=== PATIENT | male | born 1980 | race Caucasian/White ===

== ENCOUNTER 2020-08-10 15:36 | Inpatient (IN) | payer SELFPAY ==
[2020-08-10] VITALS (7 sets, daily range): BP systolic 112–133; BP diastolic 72–100; PULSE 62–90; RESP 16–18; TEMP 36.3–36.8; O2SAT 95–98; BMI 27.8
--- NOTE | 2020-08-10 15:45 | CTR_ITS ---
PROCEDURE INFORMATION: Exam: CT Right Upper Extremity With Contrast, Hand Exam date and time: 08/10/2020 5:23 PM Age: 39 years old Clinical indication: Condition or disease; Abscess; Hand; Right; Additional info: Abscess/puncture wound TECHNIQUE: Imaging protocol: CT of the Right upper extremity with intravenous contrast was performed. Exam focused on the hand. Radiation optimization: All CT scans at this facility use at least one of these dose optimization techniques: automated exposure control; mA and/or kV adjustment per patient size (includes targeted exams where dose is matched to clinical indication); or iterative reconstruction. Contrast material: OMNI 300; Contrast volume: 95 ml; Contrast route: INTRAVENOUS (IV); COMPARISON: No relevant prior studies available. RADIATION DOSE METRICS: Total DLP (mGy-cm): 194.57 FINDINGS: Bones/joints: Normal. No acute fracture or dislocation. Soft tissues: Subcutaneous fat inflammation along the volar aspect of the index finger proximal phalanx with more diffuse inflammation proximal to this down to the level of the proximal 2nd metatarsus consistent with cellulitis. No obvious abscess, soft tissue emphysema or osteomyelitis. CT/CT [place] con [id number] IMPRESSION: 1. Subcutaneous fat inflammation along the volar aspect of the index finger proximal phalanx with more diffuse inflammation proximal to this down to the level of the proximal 2nd metatarsus consistent with cellulitis. 2. No obvious abscess, soft tissue emphysema or osteomyelitis. Radiation Dose CTDIVOL = (mGy): DLP = 194.57 (mGy-cm)
--- NOTE | 2020-08-10 16:38 | W.ED.EXTPRO ---
Documented by User: Jose Garcia DO 08/11/20 05:54 HPI - Extremity Problem General: Chief complaint: Extremity Injury, Upper Stated complaint: right hand swelling Time Seen by Provider: 08/10/20 15:41 History of Present Illness: HPI Narrative: 39-year-old male presents emergency room with complaint of swelling in his right hand between second and third distal metatarsals. He evidently had dropped or caught a picture frame as it was dropping in the palm of his hand distally near the interwebspace was punctured by a nail. Overnight it is swollen significantly it is painful to touch he is severe pain with range of motion. He denies any fever sweats or chills. MD Complaint: extremity pain and extremity swelling Onset (ago): day(s) Pain Consistency: constant Location: right Quality: aching Radiation: proximal Relieving factors: immobilization and rest Exacerbating factors: range of motion and palpation Associated symptoms: Deny chest pain, fever(s) or rash Review of Systems Const: Denies: fever(s), chills, body aches, change in appetite, fatigue or malaise ENMT: Denies: throat pain, ear or mastoid pain, nasal discharge or nasal congestion Card: Denies: chest pain, edema, dyspnea on exertion or orthopnea Resp: Denies: dyspnea, productive cough or non-productive cough GI: Denies: abdominal pain, nausea, vomiting, hematemesis, coffee ground emesis, diarrhea, constipation, bloating, hematochezia or melena : Denies: flank pain, dysuria, urinary frequency or urinary urgency Skin/Breast: Denies: rash or pruritus PFSH ED PFSH: Medical History Abscess GERD (gastroesophageal reflux disease) Hepatitis C HIV negative test was done 11/19/2009 Heroin addiction IV drug abuse Methadone dependence Polysubstance (excluding opioids) dependence Surgical History History of incision and drainage multiple History of tonsillectomy Family History Mother CAD (coronary artery disease) Social History Smoking and tobacco status: current every day smoker Alcohol intake: never Substance/Drug Use: former Physical Exam Const: COMMON NORMALS: no acute distress GENERAL APPEARANCE: cooperative and comfortable ORIENTATION/CONSCIOUSNESS: Yes awake, Yes oriented to person, Yes oriented to place and Yes oriented to time HENMT: COMMON NORMALS: normocephalic, atraumatic and hearing grossly normal bilaterally HEAD & SCALP: normocephalic and atraumatic Neck/C-Spine: COMMON NORMALS: no JVD Resp: COMMON NORMALS: normal respiratory effort, No retractions, No use of accessory muscles and clear to auscultation bilaterally AUSCULTATION: clear to auscultation bilaterally Cardio: COMMON NORMALS: no JVD, regular rate, regular rhythm and No murmurs present (Cardio) RATE: regular rate RHYTHM: regular rhythm GI: COMMON NORMALS: Soft to palpation and No hepatosplenomegaly present AUSCULTATION: Yes normoactive bowel sounds PALPATION: Yes Soft to palpation, No Tenderness to palpation present (GI), No Guarding due to palpation present (GI) and Yes No hepatosplenomegaly present Extremity: NARRATIVE EXTREMITY EXAM: Given swelling of the right hand with a focal abscess between the second and third metatarsals with pointing at the the palmar surface. There is no active drainage edema and induration extending to the proximal third of the forearm no epitrochlear lymphadenopathy noted Neuro: SENSORIUM/ORIENTATION: Yes oriented to person, Yes oriented to place and Yes oriented to time Skin: COMMON NORMALS: no rashes or lesions noted GENERAL SKIN EXAM: no rashes or lesions noted Course Vital Signs: Vital signs: Vital Signs Temperature 98.3 F 08/11/20 04:00 Pulse Rate 72 08/11/20 04:00 Respiratory Rate 18 08/11/20 04:00 Blood Pressure 109/68 08/11/20 04:00 Pulse Oximetry 92 08/11/20 04:00 MDM - Extremity (Nontraumatic) MDM Narrative: Medical decision making narrative: Care turned over to Dr. Queen at change of shift see his notes for final diagnosis and disposition Lab Data: Labs: Lab Results 08/10/20 08/10/20 08/10/20 Range/Units 17:00 17:00 17:00 WBC 11.1 H (4.0-10.0) 10^3/ uL RBC 3.72 L (4.1-5.3) 10^6/u L Hgb 11.1 L (11.7-16.6) g/dL Hct 33.9 L (42.0-52.0) % MCV 91.1 (80-94) fL MCH 29.8 (28.0-34.0) pg MCHC 32.7 (30.0-36.0) g/dL RDW 13.2 (12.1-15.1) % Plt Count 299 (130-400) 10^3/c mm MPV 10.5 H (7.4-10.4) fL Neut % (Auto) 71.8 % Lymph % (Auto) 16.7 % [place] % (Auto) 8.4 % Eos % (Auto) 2.3 % Baso % (Auto) 0.4 % Neut # (Auto) 7.95 H (1.8-7.7) 10^3/u L Lymph # (Auto) 1.9 (0.8-4.8) 10^3/u L [place] # (Auto) 0.9 (0.2-0.9) 10^3/u L Eos # (Auto) 0.3 (0.0-0.8) 10^3/u L Baso # (Auto) 0.0 (0.0-0.1) 10^3/u L Nucleated RBC % (a uto) 0 % Nucleated RBCs # 0.0 /100WBC ESR 46 H (0-10) mm/hr Sodium 138 (136-145) mmol/L Potassium 2.9 L (3.5-5.1) mmol/L Chloride 99 (98-107) mmol/L Carbon Dioxide 32 H (22-29) mmol/L Anion Gap 9.9 (5-19) BUN 9 (6-20) mg/dL Creatinine 1.0 (0.7-1.2) mg/dL GFR Calculation 83.2 L (90-130) mL/min Glucose 109 (65-115) mg/dL Calculated Osmolal ity 285 (285-295) mOsm/k g Calcium 8.7 (8.5-10.5) mg/dL Total Bilirubin 0.4 (0.15-1.2) mg/dL AST 25 (0-40) U/L ALT 23 (0-41) U/L Alkaline Phosphata se 90 (40-130) IU/L C-Reactive Protein (0.0-4.9) mg/L Total Protein 6.7 (6.6-8.7) g/dL Albumin 3.6 (3.5-5.2) g/dL Globulin 3.1 (1.3-4.6) g/dL 08/10/20 Range/Units 17:00 WBC (4.0-10.0) 10^3/ uL RBC (4.1-5.3) 10^6/u L Hgb (11.7-16.6) g/dL Hct (42.0-52.0) % MCV (80-94) fL MCH (28.0-34.0) pg MCHC (30.0-36.0) g/dL RDW (12.1-15.1) % Plt Count (130-400) 10^3/c mm MPV (7.4-10.4) fL Neut % (Auto) % Lymph % (Auto) % [place] % (Auto) % Eos % (Auto) % Baso % (Auto) % Neut # (Auto) (1.8-7.7) 10^3/u L Lymph # (Auto) (0.8-4.8) 10^3/u L [place] # (Auto) (0.2-0.9) 10^3/u L Eos # (Auto) (0.0-0.8) 10^3/u L Baso # (Auto) (0.0-0.1) 10^3/u L Nucleated RBC % (a uto) % Nucleated RBCs # /100WBC ESR (0-10) mm/hr Sodium (136-145) mmol/L Potassium (3.5-5.1) mmol/L Chloride (98-107) mmol/L Carbon Dioxide (22-29) mmol/L Anion Gap (5-19) BUN (6-20) mg/dL Creatinine (0.7-1.2) mg/dL GFR Calculation (90-130) mL/min Glucose (65-115) mg/dL Calculated Osmolal ity (285-295) mOsm/k g Calcium (8.5-10.5) mg/dL Total Bilirubin (0.15-1.2) mg/dL AST (0-40) U/L ALT (0-41) U/L Alkaline Phosphata se (40-130) IU/L C-Reactive Protein 52.0 H (0.0-4.9) mg/L Total Protein (6.6-8.7) g/dL Albumin (3.5-5.2) g/dL Globulin (1.3-4.6) g/dL Discharge Plan Discharge Patient Disposition: Admitted As Inpatient Admit Provider: Michelet Gamino Clinical Impression: Cellulitis Qualifiers: Site of cellulitis: extremity Site of cellulitis of extremity: upper extremity Laterality: right Qualified Code(s): L03.113 - Cellulitis of right upper limb Condition: Stable Coding Level of Care Code ED Intensivist for [facility] Fwd Exam Detailed Documented by User: Ang Queen MD 08/10/20 19:37 HPI - Extremity Problem General: Chief complaint: Extremity Injury, Upper Stated complaint: right hand swelling Time Seen by Provider: 08/10/20 15:41 PFS ED PFSH: Medical History Abscess GERD (gastroesophageal reflux disease) Hepatitis C HIV negative test was done 11/19/2009 Heroin addiction IV drug abuse Methadone dependence Polysubstance (excluding opioids) dependence Surgical History History of incision and drainage multiple History of tonsillectomy Family History Mother CAD (coronary artery disease) Social History Smoking and tobacco status: current every day smoker Alcohol intake: never Substance/Drug Use: former Course Vital Signs: Vital signs: Vital Signs Temperature 98.3 F 08/11/20 04:00 Pulse Rate 72 08/11/20 04:00 Respiratory Rate 18 08/11/20 04:00 Blood Pressure 109/68 08/11/20 04:00 Pulse Oximetry 92 08/11/20 04:00 MDM - Extremity (Nontraumatic) MDM Narrative: Medical decision making narrative: Patient presents with cellulitis in his hand. Did speak to hand surgeon Dr. Collins at [facility] [address] she felt that did not require immediate surgery. I spoke to orthopedist Dr. Gamez here and feels it is more of a cellulitis at this time and has no signs of flexor infection. Patient started on IV antibiotics I spoke to the hospital who is admitting Lab Data: Labs: Lab Results 08/10/20 08/10/20 08/10/20 Range/Units 17:00 17:00 17:00 WBC 11.1 H (4.0-10.0) 10^3/ uL RBC 3.72 L (4.1-5.3) 10^6/u L Hgb 11.1 L (11.7-16.6) g/dL Hct 33.9 L (42.0-52.0) % MCV 91.1 (80-94) fL MCH 29.8 (28.0-34.0) pg MCHC 32.7 (30.0-36.0) g/dL RDW 13.2 (12.1-15.1) % Plt Count 299 (130-400) 10^3/c mm MPV 10.5 H (7.4-10.4) fL Neut % (Auto) 71.8 % Lymph % (Auto) 16.7 % [place] % (Auto) 8.4 % Eos % (Auto) 2.3 % Baso % (Auto) 0.4 % Neut # (Auto) 7.95 H (1.8-7.7) 10^3/u L Lymph # (Auto) 1.9 (0.8-4.8) 10^3/u L [place] # (Auto) 0.9 (0.2-0.9) 10^3/u L Eos # (Auto) 0.3 (0.0-0.8) 10^3/u L Baso # (Auto) 0.0 (0.0-0.1) 10^3/u L Nucleated RBC % (a uto) 0 % Nucleated RBCs # 0.0 /100WBC ESR 46 H (0-10) mm/hr Sodium 138 (136-145) mmol/L Potassium 2.9 L (3.5-5.1) mmol/L Chloride 99 (98-107) mmol/L Carbon Dioxide 32 H (22-29) mmol/L Anion Gap 9.9 (5-19) BUN 9 (6-20) mg/dL Creatinine 1.0 (0.7-1.2) mg/dL GFR Calculation 83.2 L (90-130) mL/min Glucose 109 (65-115) mg/dL Calculated Osmolal ity 285 (285-295) mOsm/k g Calcium 8.7 (8.5-10.5) mg/dL Total Bilirubin 0.4 (0.15-1.2) mg/dL AST 25 (0-40) U/L ALT 23 (0-41) U/L Alkaline Phosphata se 90 (40-130) IU/L C-Reactive Protein (0.0-4.9) mg/L Total Protein 6.7 (6.6-8.7) g/dL Albumin 3.6 (3.5-5.2) g/dL Globulin 3.1 (1.3-4.6) g/dL 08/10/20 Range/Units 17:00 WBC (4.0-10.0) 10^3/ uL RBC (4.1-5.3) 10^6/u L Hgb (11.7-16.6) g/dL Hct (42.0-52.0) % MCV (80-94) fL MCH (28.0-34.0) pg MCHC (30.0-36.0) g/dL RDW (12.1-15.1) % Plt Count (130-400) 10^3/c mm MPV (7.4-10.4) fL Neut % (Auto) % Lymph % (Auto) % [place] % (Auto) % Eos % (Auto) % Baso % (Auto) % Neut # (Auto) (1.8-7.7) 10^3/u L Lymph # (Auto) (0.8-4.8) 10^3/u L [place] # (Auto) (0.2-0.9) 10^3/u L Eos # (Auto) (0.0-0.8) 10^3/u L Baso # (Auto) (0.0-0.1) 10^3/u L Nucleated RBC % (a uto) % Nucleated RBCs # /100WBC ESR (0-10) mm/hr Sodium (136-145) mmol/L Potassium (3.5-5.1) mmol/L Chloride (98-107) mmol/L Carbon Dioxide (22-29) mmol/L Anion Gap (5-19) BUN (6-20) mg/dL Creatinine (0.7-1.2) mg/dL GFR Calculation (90-130) mL/min Glucose (65-115) mg/dL Calculated Osmolal ity (285-295) mOsm/k g Calcium (8.5-10.5) mg/dL Total Bilirubin (0.15-1.2) mg/dL AST (0-40) U/L ALT (0-41) U/L Alkaline Phosphata se (40-130) IU/L C-Reactive Protein 52.0 H (0.0-4.9) mg/L Total Protein (6.6-8.7) g/dL Albumin (3.5-5.2) g/dL Globulin (1.3-4.6) g/dL Imaging Data^: Other CT: Attestation: I personally reviewed and interpreted this imaging study as follows: Radiologist's impression: [address] [address] [address] Scan Report Signed Patient: Zenon Brewer Unit #: [id number] : 1980 Age/Sex: 39 / M ADM Date: 08/10/20 Loc: ER Room/Bed: Attending Dr: Ordering Provider/Ordering MD: Jose Garcia DO Date of Service: 08/10/20 Procedure(s): CT hand RT w con [id number] Accession Number(s): [id number] Report Number: [id number] PROCEDURE INFORMATION: Exam: CT Right Upper Extremity With Contrast, Hand Exam date and time: 08/10/2020 5:23 PM Age: 39 years old Clinical indication: Condition or disease; Abscess; Hand; Right; Additional info: Abscess/puncture wound TECHNIQUE: Imaging protocol: CT of the Right upper extremity with intravenous contrast was performed. Exam focused on the hand. Radiation optimization: All CT scans at this facility use at least one of these dose optimization techniques: automated exposure control; mA and/or kV adjustment per patient size (includes targeted exams where dose is matched to clinical indication); or iterative reconstruction. Contrast material: OMNI 300; Contrast volume: 95 ml; Contrast route: INTRAVENOUS (IV); COMPARISON: No relevant prior studies available. RADIATION DOSE METRICS: Total DLP (mGy-cm): 194.57 FINDINGS: Bones/joints: Normal. No acute fracture or dislocation. Soft tissues: Subcutaneous fat inflammation along the volar aspect of the index finger proximal phalanx with more diffuse inflammation proximal to this down to the level of the proximal 2nd metatarsus consistent with cellulitis. No obvious abscess, soft tissue emphysema or osteomyelitis. CT/CT hand RT w con [id number] IMPRESSION: 1. Subcutaneous fat inflammation along the volar aspect of the index finger proximal phalanx with more diffuse inflammation proximal to this down to the level of the proximal 2nd metatarsus consistent with cellulitis. 2. No obvious abscess, soft tissue emphysema or osteomyelitis. Radiation Dose CTDIVOL = (mGy): DLP = 194.57 (mGy-cm) Discharge Plan Discharge Patient Disposition: Admitted As Inpatient Admit Provider: Michelet Gamino Clinical Impression: Cellulitis Qualifiers: Site of cellulitis: extremity Site of cellulitis of extremity: upper extremity Laterality: right Qualified Code(s): L03.113 - Cellulitis of right upper limb Condition: Stable Coding Level of Care Code ED Intensivist for [facility] Fwd Exam Detailed
--- NOTE | 2020-08-10 16:49 | PC.NURSE ---
pt has had multiple IV attempts from multiple nurses and staff. Attempts unsuccessful thus far. ED physician notified.
[2020-08-10] MEDS: vancomycin 1,000 MG in sodium chloride 0.9% 250 ML 250 MG IV (17:09)
[2020-08-10] MEDS: ondansetron 2 mg/ML SDV 2 mL 4 MG IVP (17:10)
[2020-08-10] MEDS: morphine 4 mg/mL SDV 1 mL IVP (17:10)
[2020-08-10] MEDS: iohexol 300 mg/mL 100 mL Btl IV (17:28)
[2020-08-10 17:30] LABS: Basophils % 0.4 %; Eosinophils # 0.3 10^3/uL (0.0-0.8); Eosinophils % 2.3 %; Hematocrit 33.9 % (42.0-52.0); Hemoglobin 11.1 g/dL (11.7-16.6); Lymphocytes # 1.9 10^3/uL (0.8-4.8); Lymphocytes % 16.7 %; Mean Corpuscular HGB Conc 32.7 g/dL (30.0-36.0); Mean Corpuscular Hemoglobin 29.8 pg (28.0-34.0); Mean Corpuscular Volume 91.1 fL (80-94); Mean Platelet Volume 10.5 fL (7.4-10.4); Monocytes # 0.9 10^3/uL (0.2-0.9); Monocytes % 8.4 %; Neutrophils # 7.95 10^3/uL (1.8-7.7); Neutrophils % 71.8 %; Nucleated Red Blood Cells % 0 %; Platelet Count 299 10^3/cmm (130-400); Red Blood Count 3.72 10^6/uL (4.1-5.3); Red Cell Distribution Width 13.2 % (12.1-15.1); White Blood Count 11.1 10^3/uL (4.0-10.0)
[2020-08-10 17:41] LABS: Alanine Aminotransferase 23 U/L (0-41); Albumin Level 3.6 g/dL (3.5-5.2); Alkaline Phosphatase 90 IU/L (40-130); Anion Gap 9.9 (5-19); Aspartate Amino Transferase 25 U/L (0-40); Blood Urea Nitrogen 9 mg/dL (6-20); Calcium 8.7 mg/dL (8.5-10.5); Carbon Dioxide 32 mmol/L (22-29); Chloride 99 mmol/L (98-107); Globulin 3.1 g/dL (1.3-4.6); Glomerular Filtration Rate 83.2 mL/min (90-130); Glucose 109 mg/dL (65-115); Osmolality Calculated 285 mOsm/kg (285-295); Sodium 138 mmol/L (136-145); Total Bilirubin 0.4 mg/dL (0.15-1.2); Total Protein 6.7 g/dL (6.6-8.7)
[2020-08-10 17:50] LABS: Potassium 2.9 mmol/L (3.5-5.1)
[2020-08-10] MEDS: tetanus-dipt-pertussis 0.5 mL SDV IM (18:16)
[2020-08-10] MEDS: lidocaine 1% 5 ML in potassium chloride premix 100 ML 25 ML IV (18:16)
[2020-08-10 19:25] LABS: Erythrocyte Sedimentation Rate 46 mm/hr (0-10)
--- NOTE | 2020-08-10 19:38 | P.HP_ITS ---
Providers/Chief Complaint Admitting Physician: Michelet Gamino MD Chief Complaint: right hand swelling History of Present Illness Zenon Brewer is a 39 year old male who carries history of IV drug abuse, heroin addiction currently on methadone, presented today with chief complaint of right arm swelling. Patient is stating that around [place] he had a relapse when he started using IV methamphetamine, he only used it for 3 days. He is stating that his girlfriend left him around [place] and that triggered that event. He smokes on and off, does not drink alcohol. About 3 to 4 days ago he was cleaning his home when he punctured his right palm with a nail when a wooden frame fell on him, he started noticing swelling yesterday and it got worse today, his right arm became tender and more swollen. He did not notice fever, nausea, vomiting, rigors/chills shortness of breath or chest pain. Diagnostics in the ER revealed normal hemodynamics he does not meet sepsis criteria however leukocytosis noted, CT had did not reveal any necrotizing fasciitis or gas gangrene, Dr. Gamez will see him in the morning, his case was discussed with hand surgeon at [place] who did not recommend any intervention at this point. Vancomycin and Zosyn started Review of Systems Const: Reports: fatigue; Denies: fever(s), chills or body aches Eyes: Denies: change in vision ENMT: Denies: throat pain Card: Denies: chest pain Resp: Denies: dyspnea GI: Denies: abdominal pain : Denies: flank pain Musc: Denies: neck pain Skin/Breast: Denies: rash Neuro: Denies: headache(s) Psych: Reports: depression Endo: Denies: polyuria Ethan/Lymph: Denies: easy bruising All/Imm: Denies: urticaria Medications/Allergies Home Medications Medication Instructions Recorded Confirmed Last Taken Type methadone 40 mg PO DAILY 08/10/20 08/10/20 Unknown History Allergies Allergy/AdvReac Type Severity Reaction Status Date / Time Unable to Assess Allergy Unverified 08/10/20 17:10 PFSH Acute PFSH: Medical History Abscess GERD (gastroesophageal reflux disease) Hepatitis C HIV negative test was done 11/19/2009 Heroin addiction IV drug abuse Methadone dependence Polysubstance (excluding opioids) dependence Surgical History History of incision and drainage multiple History of tonsillectomy Family History Mother CAD (coronary artery disease) Social History Smoking and tobacco status: current every day smoker Alcohol intake: never Substance/Drug Use: former Vitals/I&O/Wt Last Vital Signs Temp 98.2 F 08/10/20 15:39 Pulse 74 08/10/20 19:03 Resp 18 08/10/20 15:39 BP 113/73 08/10/20 19:03 Pulse Ox 97 08/10/20 19:03 Weight last 48 hrs Weight 92.986 kg Physical Exam Narrative: EXAM NARRATIVE: Young male Unkept appearance S1, S2 no tachycardia or heart failure, no murmur appreciated Abdomen soft nontender bowel sound present No acute respiratory distress EOMI, PERRLA Neurological deficit GCS 15, Right arm swelling after his elbow with mild hyperemia around dorsum of his hand, puncture wound noted on palmar side with no active drainage, no signs of lymphangitis, arm is tender, limited range of motion No cyanosis gangrene of skin Lower extremity no edema gangrene or ulcer Poor hygiene, legs are soiled with feces No typical signs of infective endocarditis Data : 08/10/20 17:00 08/10/20 17:00 Micro: Microbiology 08/10/20 17:36 Blood Culture - Preliminary Blood SPECIMEN COLLECTED 08/10/20 17:00 Blood Culture - Preliminary Blood SPECIMEN COLLECTED A&P Assessment and plan (1) Cellulitis: Right arm cellulitis No signs of sepsis or lymphangitis, his wound is clean, no active drainage CT head did not reveal gas gangrene or necrotizing fasciitis We will start patient on vancomycin and Zosyn, if he shows signs of worsening would add antipseudomonal double coverage Dilaudid for breakthrough pain, continue methadone Patient has received tetanus shot in the ER Monitor for progressive cellulitis Obtain blood cultures Previous blood work revealed negative HIV test Dr. Gamez is consulted Status: Acute Qualifiers: Laterality: right Site of cellulitis: extremity Site of cellulitis of extremity: upper extremity Qualified Code(s): L03.113 - Cellulitis of right upper limb Additional A&P Information Heroin addiction: Currently on methadone IV drug abuse: Patient injected methyl amphetamine around [place] would obtain drug screen Cardiac diet Full code DVT prophylaxis Lovenox Attestations Medical Necessity Statement*: Anticipating stay in the hospital cross more than 2 midnights currently needing IV antibiotics for right arm cellulitis, his edema is extending from tip of the fingers up to elbow, he is at risk of progressive cellulitis considering history of IV drug abuse and heroin addiction Time Spent in Patient Care: (>than 50% of time spent in counselling and/or direct pt care on unit) . 50mins Coding Level of Care Code Acute [employer] Product Manager for Ern[facility] R[facility]ins Diagnoses Cellulitis L03.113 Laterality: right Site of cellulitis: extremity Site of cellulitis of extremity: upper extremity
--- NOTE | 2020-08-10 21:02 | PC.PHAR ---
Vancomycin is dosed at 1000mg IVPB every 8 hours to produce a predicted trough level of 14.14 (population based pharmacokinetic analysis). A trough level has been ordered to be obtained before the fourth dose to confirm and adjust if needed. The Zosyn is dosed at 3.375gm IVPB every 8 hours on basis of creatinine clearance of 117.48.
[2020-08-10] MEDS: enoxaparin 40 mg/0.4 mL Syringe SUBCUT (21:25)
[2020-08-10] MEDS: piperacillin-tazobactam 3.375 GM in sodium chloride 0.9% (plus) 50 ML IV (23:17)
[2020-08-11] MEDS: vancomycin 1,000 MG in sodium chloride 0.9% 250 ML 250 MG IV ×3 (01:07→17:48)
[2020-08-11 04:00] VITALS: BP 109/68; PULSE 72; RESP 18; TEMP 36.8; O2SAT 92
[2020-08-11 04:56] LABS: Basophils % 0.3 %; Eosinophils # 0.3 10^3/uL (0.0-0.8); Eosinophils % 2.7 %; Hematocrit 33.1 % (42.0-52.0); Hemoglobin 10.8 g/dL (11.7-16.6); Lymphocytes # 1.8 10^3/uL (0.8-4.8); Lymphocytes % 18.3 %; Mean Corpuscular HGB Conc 32.6 g/dL (30.0-36.0); Mean Corpuscular Hemoglobin 30.3 pg (28.0-34.0); Mean Corpuscular Volume 92.7 fL (80-94); Mean Platelet Volume 10.6 fL (7.4-10.4); Monocytes # 0.9 10^3/uL (0.2-0.9); Monocytes % 9.2 %; Neutrophils # 6.65 10^3/uL (1.8-7.7); Neutrophils % 68.9 %; Nucleated Red Blood Cells % 0 %; Platelet Count 263 10^3/cmm (130-400); Red Blood Count 3.57 10^6/uL (4.1-5.3); Red Cell Distribution Width 13.4 % (12.1-15.1); White Blood Count 9.7 10^3/uL (4.0-10.0)
[2020-08-11 05:21] LABS: Anion Gap 8.1 (5-19); Blood Urea Nitrogen 6 mg/dL (6-20); Calcium 8.3 mg/dL (8.5-10.5); Carbon Dioxide 31 mmol/L (22-29); Chloride 100 mmol/L (98-107); Glomerular Filtration Rate 107.6 mL/min (90-130); Glucose 112 mg/dL (65-115); Osmolality Calculated 280 mOsm/kg (285-295); Potassium 3.1 mmol/L (3.5-5.1); Sodium 136 mmol/L (136-145)
[2020-08-11] MEDS: piperacillin-tazobactam 3.375 GM in sodium chloride 0.9% (plus) 50 ML IV ×3 (06:43→23:10)
[2020-08-11 08:00] VITALS: BP 121/88; PULSE 82; TEMP 36.7; O2SAT 96
[2020-08-11] MEDS: sennosides-docusate Tablet 1 TAB PO (08:03)
[2020-08-11] MEDS: methadone 10 mg Tablet 40 MG PO (09:36)
[2020-08-11 09:44] LABS: Magnesium 1.7 mg/dL (1.7-2.3)
[2020-08-11] MEDS: lidocaine 1% 5 ML in potassium chloride premix 100 ML 25 ML IV (10:08)
[2020-08-11 11:57] VITALS: BP 115/68; PULSE 70; RESP 14; TEMP 36.3; O2SAT 95
[2020-08-11] MEDS: acetaminophen 325 mg Tablet PO (12:21)
[2020-08-11] MEDS: methadone 10 mg Tablet 95 MG PO (12:28)
--- NOTE | 2020-08-11 14:48 | PM.CONSULT ---
Providers/Reason For Consult Consulting Physican/Specialty*: David Gamez MD Reason for Consult*: Cellulitis right hand Attending Physician: Leroy Magana History of Present Illness History of Present Illness Zenon Brewer is a 39 year old male with a history of IV drug use, heroin addiction and current on methadone who presented last night with right arm swelling. He states 5 days ago he had a nail from a picture frame puncture his plantar hand beneath the long finger. He states that 2 days ago he began having increasing redness and swelling in his hand. He finally presented to the emergency room last night where he was diagnosed with cellulitis. Work-up including a CT scan which, excepting its limited diagnostic capability and soft tissue infections, showed no evidence of deep abscess. The patient has been admitted to the medicine service for antibiotics. He describes much less redness and swelling in his hand since admission Meds/Allergies Home Medications and Allergies Home Medications Medication Instructions Recorded Confirmed Last Taken Type methadone 40 mg PO DAILY 08/10/20 08/10/20 Unknown History Allergies Allergy/AdvReac Type Severity Reaction Status Date / Time No Known Allergies Allergy Verified 08/10/20 23:36 Current Medications Current Medications Generic Name Dose Route Start Last Admin Trade Name Freq PRN Reason Stop Dose Admin Acetaminophen 325 - 650 mg 08/10/20 20:28 08/11/20 12:21 Acetaminophen 325 Mg Tablet PO 650 mg Q4H PRN Administration MILD PAIN OR INCREASE TEMP Enoxaparin Sodium 40 mg 08/10/20 20:28 08/10/20 21:25 Enoxaparin 40 Mg/0.4 Ml Syringe SUBCUT 40 mg Q24H KARLO Administration Vancomycin HCl 1,000 mg/ 250 mls @ 250 mls/hr 08/11/20 01:00 08/11/20 08:50 Sodium Chloride IV 250 mls/hr Q8H KARLO Administration Protocol As Directed Piperacillin Sod/Tazobactam 50 mls @ 12.5 mls/hr 08/10/20 21:00 08/11/20 14:22 Sod 3.375 gm/ Sodium Chloride IV 12.5 mls/hr Q8H KARLO Administration Protocol As Directed Senna/Docusate Sodium 1 tab 08/11/20 09:00 08/11/20 08:03 Sennosides-Docusate Tablet PO 1 tab DAILY KARLO Administration PFSH Acute PFSH: Medical History Abscess GERD (gastroesophageal reflux disease) Hepatitis C HIV negative test was done 11/19/2009 Heroin addiction IV drug abuse Methadone dependence Polysubstance (excluding opioids) dependence Surgical History History of incision and drainage multiple History of tonsillectomy Family History Mother CAD (coronary artery disease) Social History Smoking and tobacco status: current every day smoker Alcohol intake: never Substance/Drug Use: former Vitals/I&O/Wt Last Vital Signs Temp 97.4 F L 08/11/20 11:57 Pulse 70 08/11/20 11:57 Resp 14 08/11/20 11:57 BP 115/68 08/11/20 11:57 Pulse Ox 95 08/11/20 11:57 08/10/20 08/11/20 08/11/20 22:59 06:59 14:59 Intake Total 250 / 250 405 / 655 290 / 290 Output Total 0 / 0 475 / 475 450 / 450 Balance 250 / 250 -70 / 180 -160 / -160 Weight last 48 hrs Weight 205 lb Physical Exam Narrative: EXAM NARRATIVE: On examination of the patient's right hand there is diffuse swelling in the right hand dorsally and all palmarly. There is a open wound over the plantar aspect at the level of the A1 hammad volarly of the long finger. There seems to be increasing redness and swelling in that area. He will flex his digits through 180 degree arc of motion and he can extend to them to approximately 30 degrees short of full extension. He has no fusiform swelling of the long finger digit and no particular tenderness over the middle distal or distal portion of the proximal phalanx volarly. There is some tenderness extending into his palm. He has subjective diminished sensation along the volar aspect of the long finger. He has good capillary refill in the tip of the digit. Data Micro: Micro: Microbiology 08/10/20 17:36 Blood Culture - Pr eliminary Blood SPECIMEN [facility] GUILLAUME 08/10/20 17:00 Blood Culture - Pr eliminary Blood SPECIMEN [facility] GUILLAUME A&P Assessment and plan (1) Cellulitis: The patient is clinically responding to IV antibiotics. I am concerned about the swelling in the area of a puncture wound. If he does not show good improvement we could consider surgical duct debridement. I will see how he does today and tomorrow. Would like to get baseline radiographs. I will await the CT scan report although certainly its benefit in diagnosing soft tissue infections is quite limited. Status: Acute Qualifiers: Laterality: right Site of cellulitis: extremity Site of cellulitis of extremity: upper extremity Qualified Code(s): L03.113 - Cellulitis of right upper limb Consult Attestations Medical Necessity Statement: Patient requires IV antibiotics and close follow-up with possible surgery in the future. Coding Level of Care Code Acute Asset Protection Detective for [facility] Diagnoses Cellulitis L03.113 Laterality: right Site of cellulitis: extremity Site of cellulitis of extremity: upper extremity
--- NOTE | 2020-08-11 14:54 | XRR_ITS ---
PROCEDURE INFORMATION: Exam: XR Right Hand Exam date and time: 08/11/2020 2:55 PM Age: 39 years old Clinical indication: Injury or trauma; Other: Puncture; Hand; Right; Additional info: Soft tissue infection after penetrating wound, TECHNIQUE: Imaging protocol: XR Right hand. Views: 1 or 2 views. COMPARISON: CT hand RT w con [id number] 08/10/2020 5:13 PM FINDINGS: Bones/joints: Negative for acute bony abnormality. Soft tissues: Diffuse soft tissue edema is seen in the dorsal aspect of the hand XR/XR hand RT 2V [id number] IMPRESSION: 1. No acute bone abnormality. 2. Soft tissue edema dorsal hand
[2020-08-11 16:00] VITALS: BP 131/69; PULSE 58; RESP 17; TEMP 36.4; O2SAT 94
[2020-08-11 16:38] VITALS: BP 91/53; PULSE 64; RESP 12; TEMP 36.6; O2SAT 93
--- NOTE | 2020-08-11 19:01 | PM.PN ---
Subjective Subjective: Interval history: His arm/hand is doing perhaps a smidge better, but swelling persists. Still having pain. Request to have methadone restarted at 135 mg which he says is prescribed to him at [facility]. Vitals/I&O/Wt Last Vital Signs Temp 97.8 F 08/11/20 16:38 Pulse 64 08/11/20 16:38 Resp 12 08/11/20 16:38 BP 91/53 08/11/20 16:38 Pulse Ox 93 08/11/20 16:38 08/11/20 08/11/20 08/11/20 06:59 14:59 22:59 Intake Total 405 / 655 540 / 540 Output Total 475 / 475 450 / 450 Balance -70 / 180 90 / 90 Weight last 48 hrs Weight 92.986 kg Physical Exam Const: COMMON NORMALS: no acute distress and patient oriented x3 GENERAL APPEARANCE: disheveled HENMT: COMMON NORMALS: oropharynx normal Neck/C-Spine: COMMON NORMALS: no JVD Resp: COMMON NORMALS: normal respiratory effort and clear to auscultation bilaterally AUSCULTATION: clear to auscultation bilaterally Cardio: COMMON NORMALS: no JVD, regular rhythm, S1 normal heart sound present, S2 normal heart sound present and No murmurs present (Cardio) RHYTHM: regular rhythm HEART SOUNDS: S1 normal heart sound present and S2 normal heart sound present GI: COMMON NORMALS: Normal to inspection, nondistended, normoactive bowel sounds present, Soft to palpation and non-tender PALPATION: Yes Soft to palpation Extremity: COMMON NORMALS: no joint enlargement and no pedal edema OTHER: Swelling of right hand and forearm. Small callus/minute puncture wound with eschar over distal third metacarpal on the palmar surface. Neuro: COMMON NORMALS: patient oriented x3 and moves all extremities Skin: COMMON NORMALS: no rashes or lesions noted GENERAL SKIN EXAM: no rashes or lesions noted Data : 08/11/20 04:26 08/11/20 04:26 Micro: Microbiology 08/10/20 17:36 Blood Culture - Preliminary Blood NEGATIVE TO DATE 08/10/20 17:00 Blood Culture - Preliminary Blood NEGATIVE TO DATE A&P Assessment and plan (1) Cellulitis: Right arm cellulitis without evidence of abscess. Continue IV antibiotics Elevate extremity Appreciate orthopedic recommendations. Breakthrough pain control. Methadone. Patient has received tetanus shot in the ER Monitor for progressive cellulitis Obtain blood cultures Previous blood work revealed negative HIV test Status: Acute Qualifiers: Laterality: right Site of cellulitis: extremity Site of cellulitis of extremity: upper extremity Qualified Code(s): L03.113 - Cellulitis of right upper limb Additional A&P Information Hypokalemia: Replace Hypomagnesemia: Replace Heroin addiction: Currently on methadone IV drug abuse: Patient injected methamphetamine around [place]. Monitor for any withdrawal. Attestations Medical Necessity Statement*: Continue admission for assessment and management of severe swelling, cellulitis of right upper extremity, hand, IV antibiotics, orthopedic follow-up. Coding Level of Care Code Acute Handle Lathe Operator for [facility] Diagnoses Cellulitis L03.113 Laterality: right Site of cellulitis: extremity Site of cellulitis of extremity: upper extremity
[2020-08-11 19:15] VITALS: BP 94/56; PULSE 56; RESP 18; TEMP 36.9; O2SAT 94
[2020-08-11] MEDS: magnesium sulfate premix 2 GM/50 ML PIGGYBACK IV (19:23)
[2020-08-11] MEDS: enoxaparin 40 mg/0.4 mL Syringe SUBCUT (20:23)
[2020-08-12] VITALS (13 sets, daily range): BP systolic 100–154; BP diastolic 61–74; PULSE 59–69; RESP 14–22; TEMP 36.3–36.9; O2SAT 95–98
[2020-08-12 00:46] LABS: Vancomycin Trough 15.2 ug/mL (10-15)
[2020-08-12] MEDS: vancomycin 1,000 MG in sodium chloride 0.9% 250 ML 250 MG IV ×3 (03:30→17:16)
[2020-08-12 05:20] LABS: Basophils % 0.4 %; Eosinophils # 0.3 10^3/uL (0.0-0.8); Eosinophils % 3.7 %; Hemoglobin 11.2 g/dL (11.7-16.6); Lymphocytes # 1.9 10^3/uL (0.8-4.8); Lymphocytes % 26.6 %; Mean Corpuscular Hemoglobin 30.2 pg (28.0-34.0); Mean Corpuscular Volume 94.3 fL (80-94); Mean Platelet Volume 10.7 fL (7.4-10.4); Monocytes # 0.7 10^3/uL (0.2-0.9); Monocytes % 9.4 %; Neutrophils # 4.32 10^3/uL (1.8-7.7); Neutrophils % 59.5 %; Nucleated Red Blood Cells % 0 %; Platelet Count 292 10^3/cmm (130-400); Red Blood Count 3.71 10^6/uL (4.1-5.3); Red Cell Distribution Width 13.2 % (12.1-15.1); White Blood Count 7.3 10^3/uL (4.0-10.0)
[2020-08-12 05:43] LABS: Alanine Aminotransferase 25 U/L (0-41); Albumin Level 2.9 g/dL (3.5-5.2); Alkaline Phosphatase 98 IU/L (40-130); Anion Gap 10.6 (5-19); Aspartate Amino Transferase 30 U/L (0-40); Blood Urea Nitrogen 6 mg/dL (6-20); Calcium 8.1 mg/dL (8.5-10.5); Carbon Dioxide 28 mmol/L (22-29); Chloride 103 mmol/L (98-107); Globulin 3.2 g/dL (1.3-4.6); Glomerular Filtration Rate 93.9 mL/min (90-130); Glucose 101 mg/dL (65-115); Osmolality Calculated 284 mOsm/kg (285-295); Potassium 3.6 mmol/L (3.5-5.1); Sodium 138 mmol/L (136-145); Total Bilirubin 0.2 mg/dL (0.15-1.2); Total Protein 6.1 g/dL (6.6-8.7)
[2020-08-12] MEDS: piperacillin-tazobactam 3.375 GM in sodium chloride 0.9% (plus) 50 ML IV ×2 (06:46→20:15)
[2020-08-12] MEDS: methadone 10 mg Tablet 135 MG PO (08:00)
--- NOTE | 2020-08-12 08:00 | PM.PN ---
Subjective Subjective: Interval history: Still complains of hand pain Vitals/I&O/Wt Last Vital Signs Temp 98.0 F 08/12/20 07:00 Pulse 65 08/12/20 07:00 Resp 17 08/12/20 07:00 BP 135/74 08/12/20 07:00 Pulse Ox 95 08/12/20 07:00 08/11/20 08/12/20 08/12/20 22:59 06:59 14:59 Intake Total 300 / 840 300 / 1140 Output Total 500 / 950 Balance 300 / 390 -200 / 190 Weight last 48 hrs Weight 205 lb Physical Exam Narrative: EXAM NARRATIVE: Swelling improved dorsally. Still erthematous and swollen about puncture wound at long finger volar base. Tender to touch. Still with difficulty extending digit Data : 08/12/20 04:45 08/12/20 04:45 Micro: Microbiology 08/10/20 17:36 Blood Culture - Preliminary Blood NEGATIVE TO DATE 08/10/20 17:00 Blood Culture - Preliminary Blood NEGATIVE TO DATE A&P Assessment and plan (1) Cellulitis: Swelling, erythema and tnederness persistent about wound. I suspect some abcess collection. I discussed options with patient. Will proceed to the OR for exploration, irrigation and debridement right palm. I discussed this with patient who agrees to proceed. Status: Acute Qualifiers: Laterality: right Site of cellulitis: extremity Site of cellulitis of extremity: upper extremity Qualified Code(s): L03.113 - Cellulitis of right upper limb Attestations Medical Necessity Statement*: 2 OR today Coding Level of Care Code Acute Gambreler for [facility] Diagnoses Cellulitis L03.113 Laterality: right Site of cellulitis: extremity Site of cellulitis of extremity: upper extremity
[2020-08-12] MEDS: sennosides-docusate Tablet 1 TAB PO (08:01)
--- NOTE | 2020-08-12 09:02 | ANES.PREANE2 ---
Pre-Anesthetic Assessment Pre-Anesthetic Assessment: Height/Weight: Height 1.83 m Weight 92.986 kg Temp Pulse Resp BP Pulse Ox 98.0 F 65 16 135/74 95 08/12/20 07:00 08/12/20 07:00 08/12/20 08:00 08/12/20 07:00 08/12/20 08:00 Preop Diagnosis: Cellulitis Proposed Procedure: Operation Date: 08/12/20 09:30 Proposed Procedures p Incision & Drainage Upper Extremity(Right) - David Gamez MD Familial anesthetic complications: None Was Beta Yi taken within 24 hours: N/A Last intake: Intake Last Liquid Date 08/11/20 Last Liquid Time 23:45 Last Solid Date 08/11/20 Last Solid Time 23:45 Social: Social History: Tobacco Comment: former IVDA on methadone - took meth 3 weeks ago Exam: Pre-Anes Outpt Exam: alert, oriented x 3, clear to auscultation bilaterally and regular rate & rhythm Airway: Cervical ROM: WNL MP: 2 Dentition: Other (missing) CV/HEM: Comments: Hx infective endocarditis Hepatic: Hepatic: Hepatitis (C) Comments: hx acute liver failure w/ coma Anesthetic Plan: ASA status: 2 Anesthesia: MAC and Regional (specify below) (axillary block) Risk of > 500 ml blood loss (7ml/kg in children): No Meds/Allergies Current Medications: Current Medications Generic Name Dose Route Start Last Admin Trade Name Freq PRN Reason Stop Dose Admin Acetaminophen 325 - 650 mg 08/10/20 20:28 08/11/20 12:21 Acetaminophen 32 5 Mg Tablet PO 650 mg Q4H PRN Administration MILD PAIN OR INCR EASE TEMP Enoxaparin Sodium 40 mg 08/10/20 20:28 08/11/20 20:23 Enoxaparin 40 Mg /0.4 Ml Syringe SUBCUT 40 mg Q24H KARLO Administration Vancomycin HCl 1,0 00 mg/ 250 mls @ 250 mls /hr 08/11/20 01:00 08/12/20 04:30 Sodium Chloride IV Infused Q8H KARLO Infusion Protocol As Directed Piperacillin Sod/T azobactam 50 mls @ 12.5 mls /hr 08/10/20 21:00 08/12/20 06:46 Sod 3.375 gm/ So dium Chloride IV 12.5 mls/hr Q8H KARLO Administration Protocol As Directed Methadone HCl 135 mg 08/12/20 09:00 08/12/20 08:00 Methadone 10 Mg Tablet PO 135 mg DAILY KARLO Administration Senna/Docusate Sod ium 1 tab 08/11/20 09:00 08/12/20 08:01 Sennosides-Docus ate Tablet PO 1 tab DAILY KARLO Administration PFSH Anesthesia PFSH: Medical History Abscess GERD (gastroesophageal reflux disease) Hepatitis C HIV negative test was done 11/19/2009 Heroin addiction IV drug abuse Methadone dependence Polysubstance (excluding opioids) dependence Surgical History History of incision and drainage multiple History of tonsillectomy Family History Mother CAD (coronary artery disease) Social History Smoking and tobacco status: current every day smoker Alcohol intake: never Substance/Drug Use: former Data Anesthesia CBC & Chem 7: 08/12/20 04:45 08/12/20 04:45 Other Labs: Laboratory Results - last 48 hr 08/10/20 08/10/20 08/10/20 17:00 17:00 17:00 WBC 11.1 H RBC 3.72 L Hgb 11.1 L Hct 33.9 L MCV 91.1 MCH 29.8 MCHC 32.7 RDW 13.2 Plt Count 299 MPV 10.5 H Neut % (Auto) 71.8 Lymph % (Auto) 16.7 [place] % (Auto) 8.4 Eos % (Auto) 2.3 Baso % (Auto) 0.4 Neut # (Auto) 7.95 H Lymph # (Auto) 1.9 [place] # (Auto) 0.9 Eos # (Auto) 0.3 Baso # (Auto) 0.0 Nucleated RBC % (auto) 0 Nucleated RBCs # 0.0 ESR 46 H Sodium 138 Potassium 2.9 L Chloride 99 Carbon Dioxide 32 H Anion Gap 9.9 BUN 9 Creatinine 1.0 GFR Calculation 83.2 L Glucose 109 Calculated Osmolality 285 Calcium 8.7 Magnesium Total Bilirubin 0.4 AST 25 ALT 23 Alkaline Phosphatase 90 C-Reactive Protein Total Protein 6.7 Albumin 3.6 Globulin 3.1 Vancomycin Trough 08/10/20 08/11/20 08/11/20 17:00 04:26 04:26 WBC 9.7 RBC 3.57 L Hgb 10.8 L Hct 33.1 L MCV 92.7 MCH 30.3 MCHC 32.6 RDW 13.4 Plt Count 263 MPV 10.6 H Neut % (Auto) 68.9 Lymph % (Auto) 18.3 [place] % (Auto) 9.2 Eos % (Auto) 2.7 Baso % (Auto) 0.3 Neut # (Auto) 6.65 Lymph # (Auto) 1.8 [place] # (Auto) 0.9 Eos # (Auto) 0.3 Baso # (Auto) 0.0 Nucleated RBC % (auto) 0 Nucleated RBCs # 0.0 ESR Sodium 136 Potassium 3.1 L Chloride 100 Carbon Dioxide 31 H Anion Gap 8.1 BUN 6 Creatinine 0.8 GFR Calculation 107.6 Glucose 112 Calculated Osmolality 280 L Calcium 8.3 L Magnesium Total Bilirubin AST ALT Alkaline Phosphatase C-Reactive Protein 52.0 H Total Protein Albumin Globulin Vancomycin Trough 08/11/20 08/12/20 08/12/20 04:26 00:07 04:45 WBC 7.3 RBC 3.71 L Hgb 11.2 L Hct 35.0 L MCV 94.3 H MCH 30.2 MCHC 32.0 RDW 13.2 Plt Count 292 MPV 10.7 H Neut % (Auto) 59.5 Lymph % (Auto) 26.6 [place] % (Auto) 9.4 Eos % (Auto) 3.7 Baso % (Auto) 0.4 Neut # (Auto) 4.32 Lymph # (Auto) 1.9 [place] # (Auto) 0.7 Eos # (Auto) 0.3 Baso # (Auto) 0.0 Nucleated RBC % (auto) 0 Nucleated RBCs # 0.0 ESR Sodium Potassium Chloride Carbon Dioxide Anion Gap BUN Creatinine GFR Calculation Glucose Calculated Osmolality Calcium Magnesium 1.7 Total Bilirubin AST ALT Alkaline Phosphatase C-Reactive Protein Total Protein Albumin Globulin Vancomycin Trough 15.2 H 08/12/20 04:45 WBC RBC Hgb Hct MCV MCH MCHC RDW Plt Count MPV Neut % (Auto) Lymph % (Auto) [place] % (Auto) Eos % (Auto) Baso % (Auto) Neut # (Auto) Lymph # (Auto) [place] # (Auto) Eos # (Auto) Baso # (Auto) Nucleated RBC % (auto) Nucleated RBCs # ESR Sodium 138 Potassium 3.6 Chloride 103 Carbon Dioxide 28 Anion Gap 10.6 BUN 6 Creatinine 0.9 GFR Calculation 93.9 Glucose 101 Calculated Osmolality 284 L Calcium 8.1 L Magnesium Total Bilirubin 0.2 AST 30 ALT 25 Alkaline Phosphatase 98 C-Reactive Protein Total Protein 6.1 L Albumin 2.9 L Globulin 3.2 Vancomycin Trough Micro: Microbiology 08/10/20 17:36 Blood Culture - Preliminary Blood NEGATIVE TO DATE 08/10/20 17:00 Blood Culture - Preliminary Blood NEGATIVE TO DATE Cardiac Studies: No Data to Display
--- NOTE | 2020-08-12 09:04 | ANES.PROC ---
Anesthesia Procedures Procedure/Date: 08/12/20 Nerve Block ^: Nerve Block 1: Main Anesthesia: general anesthesia Time Out Performed: Yes Consent: requested by attending/covering physician, from patient, risks and benefits reviewed and patient agrees to proceed Nerve block location: axillary (R) Anesthesia monitors applied: pulse oximetry, EKG, BP cuff and oxygen Anesthetic Used: ropivicaine 0.5% Amount of anesthesia used (mL): 30 Ultrasound used to: recognize landmarks and visualize and ID brachial plexus Nerve Stimulator Used?: No Interscalene/Femoral BLK: 2 stimuplex 22 g needle used for position and inplane approach Injection: neg aspiration of heme and paresthesia +/- Patient Tolerated Procedure: well and no complications Complications: pain with procedure (no pain during injections)
[2020-08-12] MEDS: sodium chloride 0.9% (100 ml) 100 ML 30 ML (09:30)
--- NOTE | 2020-08-12 10:42 | PM.OP ---
Operative Report Date of procedure: August 12, 2020 Pre-op Diagnosis: Cellulitis Post-op diagnosis: other (Abscess right hand) Post-op Findings: Patient had a abscess approximately 1 cm in diameter beneath the wound in his palmar hand extending down to the flexor tendon sheath. No necrotic tissue was identified. There was no extension through the tendon sheath. Procedure Done: Irrigation and debridement right hand abscess, excisional Pathology: other (Routine and anaerobic call) Surgeon: David Gamez Anesthesia: General and Nerve Block (Axillary nerve block) Estimated blood loss (mL): 5 Tourniquet time (min): 7 Findings: As above Brief History: The patient is a 39-year old male who sustained a penetrating injury to the right hand with a nail from a picture frame 5 days ago with progressive pain and swelling. He was admitted to the hospital on IV antibiotics but continued of localized swelling and tenderness about the puncture wound. A decision was made to proceed to the operating room for exploration for possible abscess Procedure: The patient was taken to the operating room after an axillary block was provided. A tourniquet was inflated in his right upper extremity was exposed. A disease incision was made including the puncture wound at the ulnar aspect and extending 1 line distally and radially and one line proximally and radially. That distal incision was extended distally toward the midline creating these the incision. Dissection was carried down bluntly through the skin revealing a focal area of purulent fluid. Utilizing a blunt hemostat the abscess was coming completely evacuated. Small areas of necrotic tissue were removed with scissors and pickups. The flexor tendon sheath was inspected with no communication of infection proximally or distally. The wound was irrigated with saline and antibiotic solution. The apex of the distal of the was closed with a single 0 Prolene. The proximal wound was packed open with a moist 4 x 4 and dry 4 x 4's web roll and an David wrap were applied. Patient was taken to recovery room in stable condition
--- NOTE | 2020-08-12 12:00 | ANE.PACU2 ---
Inpatient post-anesthesia follow up: Airway intact: Yes Vital signs: Temperature 98.4 F Pulse Rate [Monito r] 90 Pulse Rate 77 Respiratory Rate 18 Blood Pressure [Le ft Arm] 133/100 Blood Pressure 142/80 Pulse Oximetry 96 Oxygen Delivery Me thod Room Air Oxygen Flow Rate Fraction of Inspir ed Oxygen Hydration adequate: Yes Nausea and vomiting: No Pain level: 2 Mental status: Baseline
--- NOTE | 2020-08-12 15:06 | P.PN_ITS ---
Subjective Subjective: Interval history: Underwent IND of the puncture site this morning. He is doing well after surgery. And is normal after anesthesia. He otherwise is feeling well. Denies any complaints. In good spirits. Feeling hungry and requests for lunch. Vitals/I&O/Wt Last Vital Signs Temp 97.8 F 08/12/20 12:00 Pulse 59 L 08/12/20 12:00 Resp 17 08/12/20 12:00 BP 143/67 08/12/20 12:00 Pulse Ox 98 08/12/20 12:00 08/12/20 08/12/20 08/12/20 06:59 14:59 22:59 Intake Total 300 / 1140 120 / 120 Output Total 500 / 950 20 / 20 Balance -200 / 190 100 / 100 Weight last 48 hrs Weight 92.986 kg Physical Exam Const: COMMON NORMALS: no acute distress, patient oriented x3 and alert GENERAL APPEARANCE: cooperative, comfortable and disheveled ORIENTATION/CONSCIOUSNESS: Yes awake HENMT: COMMON NORMALS: oropharynx normal Neck/C-Spine: COMMON NORMALS: no JVD Resp: COMMON NORMALS: normal respiratory effort and clear to auscultation bilaterally AUSCULTATION: clear to auscultation bilaterally Cardio: COMMON NORMALS: no JVD, regular rhythm, S1 normal heart sound present, S2 normal heart sound present and No murmurs present (Cardio) RHYTHM: regular rhythm HEART SOUNDS: S1 normal heart sound present and S2 normal heart sound present GI: COMMON NORMALS: Normal to inspection, nondistended, normoactive bowel sounds present, Soft to palpation and non-tender PALPATION: Yes Soft to palpation Extremity: COMMON NORMALS: no joint enlargement and no pedal edema OTHER: Swelling of right hand and forearm with fresh dressing postoperatively after I&D. No extension of edema proximally since yesterday. Neuro: COMMON NORMALS: patient oriented x3 and moves all extremities SENSORIUM/ORIENTATION: Yes alert Skin: COMMON NORMALS: no rashes or lesions noted GENERAL SKIN EXAM: no rashes or lesions noted Data : 08/12/20 04:45 08/12/20 04:45 Micro: Microbiology 08/12/20 10:15 Gram Stain - Final Hand - #1 08/10/20 17:36 Blood Culture - Preliminary Blood NEGATIVE TO DATE 08/10/20 17:00 Blood Culture - Preliminary Blood NEGATIVE TO DATE A&P Assessment and plan (1) Cellulitis: Right hand cellulitis and abscess. Status post I&D of the right hand at the puncture site this morning. Follow-up wound cultures. Continue IV antibiotics Elevate extremity Breakthrough pain control. Methadone. Patient has received tetanus shot in the ER Monitor for progressive cellulitis Previous blood work revealed negative HIV test Status: Acute Qualifiers: Laterality: right Site of cellulitis: extremity Site of cellulitis of extremity: upper extremity Qualified Code(s): L03.113 - Cellulitis of right upper limb Additional A&P Information Hypokalemia: Replace Hypomagnesemia: Replace Heroin addiction: Currently on methadone which he takes at home at 135 mg daily. IV drug abuse: History of illicit drug use. Patient injected methamphetamine around [place]. Monitor for any withdrawal. Attestations Medical Necessity Statement*: Continue admission for assessment management of cellulitis and abscess of the right hand. Coding Level of Care Code Acute Occupational Health And Safety Manager for [facility] Diagnoses Cellulitis L03.113 Laterality: right Site of cellulitis: extremity Site of cellulitis of extremity: upper extremity
[2020-08-12] MEDS: morphine 4 mg/mL SDV 1 mL IVP ×3 (17:14→21:20)
--- NOTE | 2020-08-12 17:37 | PC.NURSE ---
SHIFT SUMMARY PATIENT HAS BEEN PLEASANT THROUGHOUT SHIFT, REQUIRING VERY LITTLE ASSISTANCE WITH ANYTHING. PATIENT WENT TO SURGERY WITH DR. ADRIAN THIS AM FOR I&D OF RIGHT HAND PUNCTURE WOUND. PATIENT TOLERATED PROCEDURE WELL AND HAS DENIED PAIN UNTIL 1700, WHEN HE STATED HIS HAND BEGAN TO FEEL LIKE IT WAS ON FIRE. MORPHINE GIVEN TO PATIENT PER DR. YU'S ORDERS. PATIENT STATES, DUE TO HIS HISTORY OF DRUG USE, HE REQUIRES MORE PAIN MEDICATION TO HELP HIS PAIN. ICE GIVEN TO THE PATIENT WELL TO HELP WITH PAIN.
[2020-08-12] MEDS: enoxaparin 40 mg/0.4 mL Syringe SUBCUT (20:15)
[2020-08-13] VITALS (9 sets, daily range): BP systolic 131–150; BP diastolic 75–80; PULSE 68–77; RESP 14–18; TEMP 36.6–36.9; O2SAT 92–96
[2020-08-13] MEDS: vancomycin 1,000 MG in sodium chloride 0.9% 250 ML 250 MG IV ×2 (00:15→10:16)
[2020-08-13] MEDS: morphine 4 mg/mL SDV 1 mL IVP ×3 (01:13→10:17)
[2020-08-13 05:27] LABS: Basophils % 0.6 %; Eosinophils # 0.4 10^3/uL (0.0-0.8); Eosinophils % 5.9 %; Hematocrit 34.6 % (42.0-52.0); Hemoglobin 10.9 g/dL (11.7-16.6); Lymphocytes # 2.1 10^3/uL (0.8-4.8); Lymphocytes % 32.8 %; Mean Corpuscular HGB Conc 31.5 g/dL (30.0-36.0); Mean Corpuscular Hemoglobin 29.9 pg (28.0-34.0); Mean Corpuscular Volume 95.1 fL (80-94); Mean Platelet Volume 10.4 fL (7.4-10.4); Monocytes # 0.7 10^3/uL (0.2-0.9); Monocytes % 10.7 %; Neutrophils % 49.5 %; Nucleated Red Blood Cells % 0 %; Platelet Count 322 10^3/cmm (130-400); Red Blood Count 3.64 10^6/uL (4.1-5.3); Red Cell Distribution Width 13.2 % (12.1-15.1); White Blood Count 6.5 10^3/uL (4.0-10.0)
[2020-08-13 05:54] LABS: Alanine Aminotransferase 22 U/L (0-41); Alkaline Phosphatase 93 IU/L (40-130); Anion Gap 12.7 (5-19); Aspartate Amino Transferase 25 U/L (0-40); Blood Urea Nitrogen 7 mg/dL (6-20); Calcium 8.1 mg/dL (8.5-10.5); Carbon Dioxide 28 mmol/L (22-29); Chloride 102 mmol/L (98-107); Glomerular Filtration Rate 93.9 mL/min (90-130); Glucose 133 mg/dL (65-115); Osmolality Calculated 288 mOsm/kg (285-295); Potassium 3.7 mmol/L (3.5-5.1); Sodium 139 mmol/L (136-145); Total Bilirubin 0.2 mg/dL (0.15-1.2)
[2020-08-13] MEDS: piperacillin-tazobactam 3.375 GM in sodium chloride 0.9% (plus) 50 ML IV (06:26)
--- NOTE | 2020-08-13 07:03 | PC.NURSE ---
Report to Tiffani MINA
[2020-08-13] MEDS: methadone 10 mg Tablet 135 MG PO (08:53)
[2020-08-13] MEDS: sennosides-docusate Tablet 1 TAB PO (08:55)
--- NOTE | 2020-08-13 13:05 | P.DS_ITS ---
Discharge Providers Date of Admission: 08/10/20 19:08 Date of Discharge: August 13, 2020 Attending Provider at Admission: Michelet Gamino MD Attending Provider at Discharge: Kaushal Haq MD Consults: Ortho: Dr. Gamez Diagnoses at Discharge Discharge Diagnosis (1) Cellulitis: Status: Acute Qualifiers: Laterality: right Site of cellulitis: extremity Site of cellulitis of extremity: upper extremity Qualified Code(s): L03.113 - Cellulitis of right upper limb Reason for Visit Reason for Visit: right hand swelling Hospital Course Hospital Course Zenon Brewer is a 39 year old male with a history of IV drug use, heroin addiction and current on methadone who presented last night with right arm swelling. He states 5 days ago he had a nail from a picture frame puncture his plantar hand beneath the long finger. He states that 2 days ago he began having increasing redness and swelling in his hand. He finally presented to the emergency room last night where he was diagnosed with cellulitis. Patient was admitted to the hospital started on broad-spectrum antibiotics with vancomycin and Zosyn and orthopedics was consulted. CT head was done which showed no obvious signs of osteomyelitis. Patient underwent surgical I&D on August 12 which was consistent with abscess of right hand. His cultures remain negative. As he remained hemodynamically stable he is been discharged on oral antibiotics with advised to follow-up with a primary care provider. New primary care provider has been set up for him. HIV hepatitis panels were negative. He is also advised to follow-up with wound center in next 3 to 4 days. Physical Exam Const: COMMON NORMALS: no acute distress, patient oriented x3 and alert GENERAL APPEARANCE: cooperative, comfortable and disheveled ORIENTATION/CONSCIOUSNESS: Yes awake HENMT: COMMON NORMALS: oropharynx normal Neck/C-Spine: COMMON NORMALS: no JVD Resp: COMMON NORMALS: normal respiratory effort and clear to auscultation bilaterally AUSCULTATION: clear to auscultation bilaterally Cardio: COMMON NORMALS: no JVD, regular rhythm, S1 normal heart sound present, S2 normal heart sound present and No murmurs present (Cardio) RHYTHM: regular rhythm HEART SOUNDS: S1 normal heart sound present and S2 normal heart sound present GI: COMMON NORMALS: Normal to inspection, nondistended, normoactive bowel sounds present, Soft to palpation and non-tender PALPATION: Yes Soft to palpation Extremity: COMMON NORMALS: no joint enlargement and no pedal edema OTHER: Swelling of right hand and forearm with fresh dressing postoperatively after I&D. No extension of edema proximally since yesterday. Neuro: COMMON NORMALS: patient oriented x3 and moves all extremities SENSORIUM/ORIENTATION: Yes alert Skin: COMMON NORMALS: no rashes or lesions noted GENERAL SKIN EXAM: no rashes or lesions noted Discharge Data Data Completed and Pending: Completed Studies During Hospitalization Category Date Time Status CT hand RT w con [id number] Stat Cat Scan 08/10/20 15:45 Completed XR hand RT 2V [id number] 20 Routine Exams 08/11/20 14:54 Completed Pending at discharge Category Date Time Status Anaerobic Culture Routine Lab 08/12/20 10:15 Results Blood Culture Sta t Lab 08/10/20 17:36 Results Complete Blood Co unt w/Auto AM LABS Lab 08/14/20 04:00 Ordered Comprehensive Met abolic Panel AM LA BS Lab 08/14/20 04:00 Ordered HIV 1&2 Antigen & Antibody Routine Lab 08/13/20 12:48 Ordered Hepatitis Panel C omprehensive Routi ne Lab 08/13/20 12:48 Ordered MRSA by PCR Routi ne Lab 08/13/20 12:48 Uncollected Wound Culture and Gram Stain Routin e Lab 08/12/20 10:15 Results Labs from last 24 hours 08/13/20 08/13/20 05:04 05:04 WBC 6.5 RBC 3.64 L Hgb 10.9 L Hct 34.6 L MCV 95.1 H MCH 29.9 MCHC 31.5 RDW 13.2 Plt Count 322 MPV 10.4 Neut % (Auto) 49.5 Lymph % (Auto) 32.8 [place] % (Auto) 10.7 Eos % (Auto) 5.9 Baso % (Auto) 0.6 Neut # (Auto) 3.20 Lymph # (Auto) 2.1 [place] # (Auto) 0.7 Eos # (Auto) 0.4 Baso # (Auto) 0.0 Nucleated RBC % (a uto) 0 Nucleated RBCs # 0.0 Sodium 139 Potassium 3.7 Chloride 102 Carbon Dioxide 28 Anion Gap 12.7 BUN 7 Creatinine 0.9 GFR Calculation 93.9 Glucose 133 H Calculated Osmolal ity 288 Calcium 8.1 L Total Bilirubin 0.2 AST 25 ALT 22 Alkaline Phosphata se 93 Total Protein 8.3 Albumin 3.0 L Globulin 5.3 H Vitals: Last Vital Signs Temp 98.4 F 08/13/20 12:00 Pulse 77 08/13/20 12:00 Resp 18 08/13/20 12:00 BP 142/80 08/13/20 12:00 Pulse Ox 96 08/13/20 12:00 Discharge Plan Discharge Patient Disposition: Home Condition: Stable Prescriptions: New hydrocodone-acetaminophen 5-325 mg Tablet 1 tab PO Q8H PRN (Reason: Moderate Pain) Qty: 5 RF: 0 cefadroxil 1 gram tablet 1,000 mg PO BID 10 Days Qty: 20 RF: 0 Bactrim DS 800-160 mg tablet 1 tab PO DAILY 10 Days RF: 0 Continued methadone 40 mg Tablet,Soluble 40 mg PO DAILY RF: 0 Discharge Orders: Discharge Order (Routine); Ordered 08/13/20 Ordered By: Kaushal Haq Referrals: Cindy Gardner DO [Physician] - 08/16/20 2:30 pm [facility], [Staff Physician] - 08/20/20 8:30 am ([phone] WOUND CARE) Discharge Diet: Advance as tolerated Discharge Activity: Resume usual activity Patient Instructions: Cellulitis, Cefadroxil (By mouth), Sulfamethoxazole/Trimethoprim (By mouth), Hydrocodone/Acetaminophen (By mouth), Methamphetamine Abuse (GEN) Activity Restrictions/Additional Instructions: Please follow up with PCP on the set up appointment. Please follow up with wound care clinic in next 1 week Make sure dressing does not get wet. Please take antibiotics for next 10 days as prescribed. Discharge Attestations Time Spent in Discharge Care*: greater than 30 min Specific Discharge Activities: educating patient, discussing with watch case polisher/social workers/dc planners, documenting/other paperwork and evaluating patient/reviewing data Status at Discharge: Cognitive status at discharge: cognitively intact , Behavioral status at discharge: cooperative , Functional status at discharge: independent ambulation Overall status at discharge: patient is back to baseline Quality Metrics Clinical Quality Measures During this hospital stay, did patient experience: None Coding Level of Care Code 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
[2020-08-13] MEDS: HYDROcodone-acetaminophen 5-325 mg Tablet 1 TAB PO (14:17)
[2020-08-13 14:36] LABS: HIV 1 & 2 Antibody Non-Reactive (Non-Reactiv); HIV 1 & 2 Antigen Non-Reactive (Non-Reactiv)
[2020-08-13 14:48] LABS: Hepatitis A Antibody IgM Non-Reactive (Nonreactive); Hepatitis B Core AB, Total Non-Reactive (Nonreactive); Hepatitis B Surface AB 3.5 (0-8.5); Hepatitis B Surface Antigen Non-Reactive (Nonreactive); Hepatitis C Virus Antibody Reactive (Nonreactive)
[2020-08-13 15:51] LABS: Globulin 3.3 g/dL (1.3-4.6)
[2020-08-13 15:52] LABS: Total Protein 6.3 g/dL (6.6-8.7)
--- NOTE | 2020-08-13 16:16 | PC.RESP ---
Smoking Cessation information sent to patient.
== END 2020-08-13 14:28 | disposition home or self-care (01) | DRG 603 ==
LOC: ER 19:20 → MEDSURG 19:22
PROVIDERS: Family Medicine; Internal Medicine; Orthopaedic Surgery; Admitting Provider Internal Medicine; Emergency Provider Emergency Medicine; Visit Provider Student in an Organized Health Care Education/Training Program
PROC: 0J9J3ZZ Drainage of Right Hand Subcutaneous Tissue and Fascia, Percutaneous Approach (ICD-10-PCS; principal; 2020-08-12 09:30)
DX: L03.113 Cellulitis of right upper limb (principal); F11.20 Opioid dependence, uncomplicated; L02.511 Cutaneous abscess of right hand; E87.6 Hypokalemia; E83.42 Hypomagnesemia; F15.10 Other stimulant abuse, uncomplicated; K21.9 Gastro-esophageal reflux disease without esophagitis; B19.20 Unspecified viral hepatitis C without hepatic coma; F17.210 Nicotine dependence, cigarettes, uncomplicated
CPT/HCPCS: 12345; 36415; 73120; 73201; 80048; 80053; 80202; 83735; 85025; 85651; 86140; 86705; 86706; 86709; 86803; 87040; 87070; 87075; 87205; 87340; 87806; 90471; 90715; 96372; 99283; J1580; J1650; J2270; J2405; J2543; J2704; J2795; J3010; J3370; J3475; J3480; J7050; Q9967

== ENCOUNTER 2020-08-24 13:03 | Emergency (ER) | payer SELFPAY ==
[2020-08-24 13:06] VITALS: BP 138/91; PULSE 94; RESP 16; TEMP 36.7; O2SAT 97; BMI 23.7
--- NOTE | 2020-08-24 13:13 | W.ED.RECABL ---
HPI - Recheck/Abnormal Lab/Rx General: Chief Complaint: Recheck/Abnormal Lab/Rx Stated Complaint: R HAND INJURY Time Seen by Provider: 08/24/20 13:11 History of Present Illness: HPI narrative: Patient is a 39-year-old male comes to the ED for wound recheck. Patient was seen here at [facility] on August 10 for infection in right hand. He ended up getting hospitalized and put on IV antibiotics and surgical I&D was performed to drain abscess. Patient was discharged from hospital on antibiotics and was set up with appointments for wound care clinic and a PCP referral. Patient did not go to his PCP appointment or his wound care clinic appointment as directed. He is coming here to get his wound rechecked. Denies any complications, fevers, chills, nausea/vomiting, erythema right hand or warmth of right hand. Review of Systems Const: Denies: fever(s), chills or fatigue Eyes: Denies: change in vision or eye discomfort ENMT: Denies: throat pain, odynophagia, nasal discharge or nasal congestion Card: Denies: chest pain, palpitations, edema, swelling of feet/ankles, dyspnea on exertion or orthopnea Resp: Denies: dyspnea, productive cough or non-productive cough GI: Denies: abdominal pain, nausea, vomiting, diarrhea, constipation or hematochezia : Denies: flank pain, difficulty urinating, dysuria or hematuria Musc: Denies: neck pain, back pain or extremity swelling Skin/Breast: Reports: surgical incision (Surgical wound recheck on right hand palmar side.); Denies: rash or new lesions Neuro: Denies: headache(s), numbness in extremities or weakness in extremities PFS ED PFSH: Medical History Abscess GERD (gastroesophageal reflux disease) Hepatitis C HIV negative test was done 11/19/2009 Heroin addiction IV drug abuse Methadone dependence Polysubstance (excluding opioids) dependence Surgical History History of incision and drainage multiple History of tonsillectomy Family History Mother CAD (coronary artery disease) Social History Smoking and tobacco status: current every day smoker Alcohol intake: never Physical Exam Const: COMMON NORMALS: no acute distress, patient oriented x3, healthy appearing and alert GENERAL APPEARANCE: cooperative and comfortable HENMT: COMMON NORMALS: normocephalic HEAD & SCALP: normocephalic MOUTH: Normal oral and palatal mucosa present THROAT: posterior oropharynx normal and uvula midline Neck/C-Spine: COMMON NORMALS: supple GENERAL: Yes normal visual inspection Resp: COMMON NORMALS: normal respiratory effort, No retractions, No use of accessory muscles and clear to auscultation bilaterally AUSCULTATION: clear to auscultation bilaterally Cardio: COMMON NORMALS: regular rate, regular rhythm, S1 normal heart sound present, S2 normal heart sound present, No gallops present (Cardio), No clicks present (Cardio), No murmurs present (Cardio) and Peripheral pulses 2+ throughout RATE: regular rate RHYTHM: regular rhythm HEART SOUNDS: S1 normal heart sound present and S2 normal heart sound present PERIPHERAL PULSES: Peripheral pulses 2+ throughout GI: COMMON NORMALS: Normal to inspection, nondistended, normoactive bowel sounds present, Soft to palpation, non-tender and no masses PALPATION: Yes Soft to palpation : COMMON NORMALS: Yes no CVA tenderness BLADDER/KIDNEY EXAM: Yes no CVA tenderness Back/Pelvis: COMMON NORMALS: no CVA tenderness Extremity: NARRATIVE EXTREMITY EXAM: Surgical site on right hand detailed in skin section of exam findings. GENERAL: Yes normal exam except as noted Neuro: COMMON NORMALS: patient oriented x3 and moves all extremities SENSORIUM/ORIENTATION: Yes alert Skin: WOUNDS: Yes surgical site (No erythema or warmth around surgical site. It appears to be healing well.) Details: size (4 cm and linear), bed Details: granulating well, no odor, open and sutures Details: in place (1 suture) Course ED course: Wound was irrigated and cleaned with an iodine and normal saline solution. I then removed 1 suture from surgical wound on hand. Vital Signs: Vital signs: Vital Signs Temperature 98.1 F 08/24/20 13:06 Pulse Rate 94 08/24/20 13:06 Respiratory Rate 16 08/24/20 13:06 Blood Pressure 138/91 08/24/20 13:06 Pulse Oximetry 97 08/24/20 13:06 MDM - Recheck/Abnormal Lab/Rx MDM Narrative: Medical decision making narrative: Patient is a 39-year-old male comes to the ED to get wound rechecked. Patient has no complaints about wound and says he is coming here to follow-up because he was told at 1 point he needs to get his wound rechecked. Patient had an abscess on right hand and had it surgically removed on August 10. He was set up with follow-up appointments with Dr. Gardner and wound care clinic but he did not go to them. He has not had his surgical site rechecked since being discharged from hospital. He has been taking his antibiotics as prescribed. Patient surgical wound appeared to be healing well and there is no erythema or warmth surrounding it. No odor or purulent drainage seen. No signs of any infection. Patient's wound was irrigated with normal saline and iodine solution. I then removed the one suture that was placed on wound. Nurse then placed bandage over wound. I spoke with case management here in the ED and they contacted wound care and they set up an appointment for patient on August 27 at 2:30 to reevaluate wound. I stressed with patient the importance of going to the wound care clinic appointment on August 27. Patient was discharged with a prescription for Bactrim. Return to ED precautions given. Patient understood and agreed with plan. Discharge Plan Discharge Patient Disposition: Home Clinical Impression: Encounter for wound re-check Condition: Stable Prescriptions: New Bactrim DS 800-160 mg tablet 1 tab PO BID 5 Days Qty: 10 RF: 0 No Action methadone 40 mg Tablet,Soluble 40 mg PO DAILY RF: 0 hydrocodone-acetaminophen 5-325 mg Tablet 1 tab PO Q8H PRN (Reason: Moderate Pain) Qty: 5 RF: 0 Discharge Orders: Discharge ED (Routine); Ordered 08/24/20 Ordered By: Tristen Barba Referrals: Virginia Medrano [Emergency Department] - 08/27/20 2:30 pm Discharge Diet: Regular Discharge Activity: Limit activity as instructed Patient Instructions: Acute Wound Care (ED), Wound Healing and Your Diet (ED), Wound Care (General) Activity Restrictions/Additional Instructions: Follow-up with medical provider as directed. It is very important that you go to your wound care clinic appointment set up on August 27 at 2:30 PM. Take medications as prescribed. Keep wound clean and and bandaged up daily. Return to the ER or your medical provider if condition worsens. Please read and understand discharge instructions. If any questions, please ask. Stand Alone Forms: Work/School Release Coding Level of Care Code ED Restaurant Hourly Team Member for Ernestine Fwd Exam Comprehensive
== END 2020-08-24 14:06 | disposition home or self-care (01) ==
PROVIDERS: Emergency Provider Physician Assistant
DX: Z48.00 Encounter for change or removal of nonsurgical wound dressing (principal); Z86.19 Personal history of other infectious and parasitic diseases; F17.210 Nicotine dependence, cigarettes, uncomplicated
CPT/HCPCS: 12345; 99281; 99282; A6446

== ENCOUNTER 2020-08-27 14:12 | Outpatient (CLI) | payer SELFPAY | END 2020-08-27 14:13 | disposition home or self-care (01) | LOC: WOUND 14:12 | PROVIDERS: Visit Provider Nurse Practitioner Family | DX: L03.114 Cellulitis of left upper limb (principal); L02.512 Cutaneous abscess of left hand | CPT/HCPCS: 11042; G0463 ==

== ENCOUNTER 2020-10-22 07:01 | Emergency (ER) | payer SELFPAY ==
[2020-10-22 07:15] VITALS: BP 138/98; PULSE 92; RESP 20; TEMP 36.9; O2SAT 98; BMI 23.1
--- NOTE | 2020-10-22 07:18 | ED_ITS ---
Documented by User: ALYX Yanez 10/22/20 08:54 HPI - Skin/Abscess/Foreign Bdy General: Chief complaint: Needlestick/Injury/Exposure Stated complaint: broke needle off in neck Time Seen by Provider: 10/22/20 07:03 Source: patient Mode of arrival: ambulatory Limitations: no limitations History of Present Illness: HPI narrative: Patient is a 39-year-old male who presents to the ED today with a complaint that his IV drug use needle broke off in the right side of his neck. Patient states this morning he was using a combination of heroin and methamphetamine when the needle broke. Tetanus is UTD. complaint: foreign body Onset (ago): hour(s) Tetanus up to date: yes Location: neck Severity: mild Relieving factors: none Exacerbating factors: none Context: other (IV drug use) Associated symptoms: Reports no associated symptoms; Deny chills, fever(s), nausea or vomiting Treatments prior to arrival: none Review of Systems Const: Denies: fever(s), chills, body aches, fatigue or malaise Eyes: Denies: change in vision ENMT: Denies: throat pain or odynophagia Card: Denies: chest pain Resp: Denies: dyspnea GI: Denies: nausea or vomiting Musc: Denies: neck pain or back pain Skin/Breast: Denies: rash Neuro: Denies: headache(s) or dizziness PFS ED PFSH: Medical History Abscess GERD (gastroesophageal reflux disease) Hepatitis C HIV negative test was done 11/19/2009 Heroin addiction IV drug abuse Methadone dependence Polysubstance (excluding opioids) dependence Surgical History History of incision and drainage multiple History of tonsillectomy Family History Mother CAD (coronary artery disease) Social History Smoking and tobacco status: current every day smoker Alcohol intake: never Physical Exam Const: COMMON NORMALS: no acute distress, patient oriented x3, no limitations and alert GENERAL APPEARANCE: anxious ORIENTATION/CONSCIOUSNESS: Yes awak e, Yes oriented to person, Yes oriented to place and Yes oriented to time HENMT: COMMON NORMALS: normocephalic and atraumatic HEAD & SCALP: normal to inspection, normocephalic and atraumatic FACE & SINUS: normal facial exam Neck/C-Spine: NECK IMAGES: 1. small track hayley-he states this is where he uses and where needle broke off Resp: COMMON NORMALS: normal respiratory effort and clear to auscultation bilaterally AUSCULTATION: clear to auscultation bilaterally Cardio: COMMON NORMALS: regular rate and regular rhythm RATE: regular rate RHYTHM: regular rhythm Neuro: BELINDA COMA SCALE: document GCS findings [place] coma scale eye opening: Spontaneous Belinda coma scale verbal response: Orientated [place] coma scale motor response: Obey commands [place] coma scale total score: 15 COMMON NORMALS: patient oriented x3 SENSORIUM/ORIENTATION: Yes alert, Yes oriented to person, Yes oriented to place and Yes oriented to time Course Vital Signs: Vital signs: Vital Signs Temperature 98.5 F 10/22/20 07:15 Pulse Rate 86 10/22/20 07:24 Respiratory Rate 18 10/22/20 07:24 Blood Pressure 138/98 10/22/20 07:24 Pulse Oximetry 96 10/22/20 07:24 MDM - Skin/Abscess/Foreign Bdy MDM Narrative: Medical decision making narrative: I have discussed with Dr. Garcia. At this point needle is abutting the external jugular vein. There is a dense amount of overlying scar tissue as patient injects here frequently. We do not feel that attempting removal at this time is indicated from the emergency department setting. We will get patient set up with Dr. Arnold as an outpatient so he can assess patient and extract if he feels this is clinically indicated. Patient was given IM Ancef. He will be discharged home with antibiotics as he has a retained foreign body. Return to ED precautions given. Imaging Data^: XR soft tissue neck: Radiologist's impression: [address] [place] [address] XRay Report Signed Patient: Zenon Brewer #: [id number] : 1980Acct#:[id number] Age/Sex: 39 / MADM Date: 10/22/20 Loc: ERRoom/Bed: Attending Dr: Ordering Provider/Ordering MD: Justa Cleveland Date of Service: 10/22/20 Procedure(s): XR soft tissue neck 35377 Accession Number(s): [id number] Report Number: [id number] PROCEDURE INFORMATION: Exam: XR Soft Tissue Neck Exam date and time: 10/22/2020 7:24 AM Age: 39 years old Clinical indication: Other: Possible fb/broken needle; Patient HX: Was doing drugs and needle broke off right side of neck at right clavicle TECHNIQUE: Imaging protocol: XR of the soft tissues of the neck. COMPARISON: No relevant prior studies available. FINDINGS: Airway: Normal. No abnormal narrowing. Soft tissues: On the PA view there is a 7 mm linear metal foreign body projecting in the soft tissues about 12 mm craniad from the shaft of the clavicle. Bones/joints: Unremarkable. XR/XR soft tissue neck 58783 IMPRESSION: On the PA view there is a 7 mm linear foreign body projecting in the soft tissues 12 mm craniad from the chest of the clavicle. Dictated By:Zia Conti Signed By:Zia ContiSiez Date/Time:10/22/20801 DD/ 08 CT soft tissue neck: Radiologist's impression: [address] [address] [address] Scan Report Signed Patient: Zenon Brewer Unit #: [id number] : 1980 Age/Sex: 39 / M ADM Date: 10/22/20 Loc: ER Room/Bed: Attending Dr: Ordering Provider/Ordering MD: Justa Cleveland Date of Service: 10/22/20 Procedure(s): CT neck wo con [id number] Accession Number(s): [id number] Report Number: [id number] WS: [id number] CT NECK TECHNIQUE: Noncontrast CT of the neck with coronal and sagittal reformatted images. CLINICAL INFORMATION: IV needle broke off R side neck COMPARISON: None. DLP: 120.[address] scans at [facility] use at least one of these dose optimization techniques: automated exposure control; mA and/or kV adjustment per patient size (includes targeted exams where dose is matched to clinical indication); or iterative reconstruction. FINDINGS: In the area of concern marked with a BB there is a radiopaque needle fragment measuring 7 mm in shallow subcutaneous soft tissues abutting the external jugular vein. No evidence of hematoma or a ctive hemorrhage. Needle approximately 1 mm deep. Parotid glands are normal. Normal submandibular glands. Normal posterior nasopharynx. Normal parapharyngeal fat. No evidence of supraglottic or glottic mass. Lung apices are well aerated. Mastoid air cells and paranasal sinuses are well aerated. CT/CT neck wo con 61017 IMPRESSION: 1. Radiopaque needle fragment measuring 7 mm overlying the right external jugular vein. 2. No evidence of hematoma or active hemorrhage. Notified ALYX Yanez at 10/22/2020 8:32 AM. Dictated By: Dylan Hadley MD Signed By: Dylan Hadley MD Signed Date/Time: 10/22/20832 DD/ 4 Discharge Plan Discharge Patient Disposition: Home Clinical Impression: Retained foreign body, Active intravenous drug use Condition: Stable Prescriptions: New Bactrim DS 800-160 mg tablet 1 tab PO BID 7 Days Qty: 14 RF: 0 No Action methadone 40 mg Tablet,Soluble 40 mg PO DAILY RF: 0 hydrocodone-acetaminophen 5-325 mg Tablet 1 tab PO Q8H PRN (Reason: Moderate Pain) Qty: 5 RF: 0 Discharge Orders: Discharge ED (Routine); Ordered 10/22/20 Ordered By: Justa Cleveland Referrals: Kwadwo Arnold MD [Physician] - Patient Instructions: Soft Tissue Foreign Body (ED) Activity Restrictions/Additional Instructions: Begin your antibiotics immediately. As we discussed case management should set you up to see Dr. Arnold/vascular surgery. When you feel like you are ready, please seek help for your drug addiction. Coding Level of Care Code ED Isotope Technician for Chg Fwd Exam Detailed Documented by User: Jose Garcia DO 10/22/20 08:53 HPI - Skin/Abscess/Foreign Bdy General: Chief complaint: Needlestick/Injury/Exposure Stated complaint: broke needle off in neck Time Seen by Provider: 10/22/20 07:03 History of Present Illness: HPI narrative: And seen in conjunction with ALYX Yanez. History reviewed discussed with her. Discussed the patient had been using the same needle multiple times he is repositioning the needle and he bent it and it broke loose. Bedside ultrasound done see below Associated symptoms: Deny chills, fever(s), nausea or vomiting Review of Systems Const: Denies: fever(s), chills, body aches, change in appetite, fatigue or malaise ENMT: Denies: throat pain, ear or mastoid pain, nasal discharge or nasal congestion Card: Denies: chest pain, edema, dyspnea on exertion or orthopnea Resp: Denies: dyspnea, productive cough or non-productive cough GI: Denies: abdominal pain, nausea, vomiting, hematemesis, coffee ground emesis, diarrhea, constipation, bloating, hematochezia or melena : Denies: flank pain, dysuria, urinary frequency or urinary urgency Skin/Breast: Denies: rash or pruritus PFSH ED PFSH: Medical History Abscess GERD (gastroesophageal reflux disease) Hepatitis C HIV negative test was done 11/19/2009 Heroin addiction IV drug abuse Methadone dependence Polysubstance (excluding opioids) dependence Surgical History History of incision and drainage multiple History of tonsillectomy Family History Mother CAD (coronary artery disease) Social History Smoking and tobacco status: current every day smoker Alcohol intake: never Physical Exam Const: COMMON NORMALS: no acute distress GENERAL APPEARANCE: cooperative and comfortable ORIENTATION/CONSCIOUSNESS: Yes awake, Yes oriented to person, Yes oriented to place and Yes oriented to time HENMT: COMMON NORMALS: normocephalic and hearing grossly normal bilaterally HEAD & SCALP: normocephalic Neck/C-Spine: COMMON NORMALS: no JVD OTHER: Small palpable nodule on the neck in the area of the external jugular the supraclavicular space. Patient has prominent blood vessels in that area bedside ultrasound identified the needle j ust below the skin adjacent to the external ocular. CT soft tissues of the neck done to confirm see below NECK IMAGES: 1. small track hayley-he states this is where he uses and where needle broke off Resp: COMMON NORMALS: normal respiratory effort, No retractions, No use of accessory muscles and clear to auscultation bilaterally AUSCULTATION: clear to auscultation bilaterally Cardio: COMMON NORMALS: no JVD, regular rate, regular rhythm and No murmurs present (Cardio) RATE: regular rate RHYTHM: regular rhythm Extremity: COMMON NORMALS: normal to inspection, capillary refill normal, no clubbing, cyanosis or edema, no calf tenderness and no pedal edema Neuro: SENSORIUM/ORIENTATION: Yes oriented to person, Yes oriented to place and Yes oriented to time Skin: COMMON NORMALS: no rashes or lesions noted GENERAL SKIN EXAM: no rashes or lesions noted Course Vital Signs: Vital signs: Vital Signs Temperature 98.5 F 10/22/20 07:15 Pulse Rate 86 10/22/20 07:24 Respiratory Rate 18 10/22/20 07:24 Blood Pressure 138/98 10/22/20 07:24 Pulse Oximetry 96 10/22/20 07:24 MDM - Skin/Abscess/Foreign Bdy MDM Narrative: Medical decision making narrative: CT neck shows a superficial needle immediately adjacent to external jugular at this point recommend that we refer her to Dr. Arnold. Has attempted to do this as an outpatient in the ER given its proximity to the external jugular additionally patient will barely tolerate even light palpation or the ultrasound probe on the skin without becoming very erratic. Under these conditions I do not believe it safe. At this time the needle does not pose an immediate danger to him so it can be evaluated further at a later date discussed with Justa Cleveland will refer to vascular surgery. Patient encouraged to stop doing IV methamphetamines. Discharge Plan Discharge Patient Disposition: Home Clinical Impression: Retained foreign body, Active intravenous drug use Condition: Stable Prescriptions: New Bactrim DS 800-160 mg tablet 1 tab PO BID 7 Days Qty: 14 RF: 0 No Action methadone 40 mg Tablet,Soluble 40 mg PO DAILY RF: 0 hydrocodone-acetaminophen 5-325 mg Tablet 1 tab PO Q8H PRN (Reason: Moderate Pain) Qty: 5 RF: 0 Discharge Orders: Discharge ED (Routine); Ordered 10/22/20 Ordered By: Justa Cleveland Referrals: Kwadwo Arnold MD [Physician] - Patient Instructions: Soft Tissue Foreign Body (ED) Activity Restrictions/Additional Instructions: Begin your antibiotics immediately. As we discussed case management should set you up to see Dr. Arnold/vascular surgery. When you feel like you are ready, please seek help for your drug addiction. Coding Level of Care Code ED Isotope Technician for Ernestine Riggins Exam Detailed
[2020-10-22 07:24] VITALS: BP 138/98; PULSE 86; RESP 18; O2SAT 96
--- NOTE | 2020-10-22 07:31 | PC.NURSE ---
Shooting up heroin this morning with a bent needle. Needle broke off in neck, noted small raised tender lump on lower right side of neck. Pt is concerned needle float up to his brain .
--- NOTE | 2020-10-22 07:49 | CT_ITS ---
WS: [id number] CT NECK TECHNIQUE: Noncontrast CT of the neck with coronal and sagittal reformatted images. CLINICAL INFORMATION: IV needle broke off R side neck COMPARISON: None. DLP: 120.[address] scans at [facility] use at least one of these dose optimization techniques: automat ed exposure control; mA and/or kV adjustment per patient size (includes targeted exams where dose is matched to clinical indication); or iterative reconstruction. FINDINGS: In the area of concern marked with a BB there is a radiopaque needle fragment measuring 7 mm in shall ow subcutaneous soft tissues abutting the external jugular vein. No evidence of hematoma or active he morrhage. Needle approximately 1 mm deep. Parotid glands are normal. Normal submandibular glands. Normal posterior nasopharynx. Normal paraphar yngeal fat. No evidence of supraglottic or glottic mass. Lung apices are well aerated. Mastoid air ce lls and paranasal sinuses are well aerated. CT/CT neck wo con 22071 IMPRESSION: 1. Radiopaque needle fragment measuring 7 mm overlying the right external jugu lar vein. 2. No evidence of hematoma or active hemorrhage. Notified ALYX Yanez at 10/22/2020 8:32 AM.
[2020-10-22] MEDS: ceFAZolin 1,000 mg SDV 1000 MG IM (08:36)
[2020-10-22 09:12] VITALS: BP 126/83; PULSE 82; RESP 18; TEMP 37.1; O2SAT 98
--- NOTE | 2020-10-22 09:14 | PC.NURSE ---
Pt did not receive an IV. Charted on wrong pt.
--- NOTE | 2020-10-22 15:02 | DCPLANNER ---
Addendum entered by Eileen Chadwick 10/22/20 15:26: Patients mother called counter caser back, counter caser gave patients mother the appointment information. Original Note: sales manager prearranged funerals had message to schedule a follow up appointment with Dr. Arnold for a needle in his neck. sales manager prearranged funerals called [facility], spoke with Lala, gave clinic patients information. A follow up appointment was scheduled for Monday, October 26, 2020 at 9:[address] Arnold. sales manager prearranged fun[employer] called phone number [phone], the call was rejected. sales manager prearranged fun[employer] called phone number [phone], patients mother, unable to speak with anyone at this time, a voicemail was left to return case maker phone call.
--- NOTE | 2020-10-31 12:39 | DCPLANNER ---
Patient had a follow up appointment scheduled for 10.26.[address] Arnold at [facility] - patient did not attend appointment.
== END 2020-10-22 09:15 | disposition home or self-care (01) ==
PROVIDERS: Emergency Provider Family Medicine
DX: M79.5 Residual foreign body in soft tissue (principal); F15.90 Other stimulant use, unspecified, uncomplicated; Z86.19 Personal history of other infectious and parasitic diseases; F17.210 Nicotine dependence, cigarettes, uncomplicated
CPT/HCPCS: 70360; 70490; 96372; 99283; J0690

== ENCOUNTER 2022-06-25 14:54 | Emergency (ER) | payer MEDICAID, SELFPAY ==
--- NOTE | 2022-06-25 | XR_ITS ---
EXAMINATION: [place] [id number] REASON FOR EXAM: Chronic wound from IV drug use COMPARISON: None available. ORDER DATE: 06/25/2022 3:41 PM FINDINGS: There is no sign of any acute osseous or articular abnormality. There is a prominent area of subcutaneous edema and perhaps some soft tissue gas with skin erosions centered in the mid lateral aspect of the upper arm. [facility] XR/[place] [id number] IMPRESSION: Large area of cellulitis and perhaps small collections of subcutaneous air with skin erosion/ulceration. Recommend ultrasound imaging for assessment of a possible subcutaneous abscess if clinically indicated.
[2022-06-25 15:30] VITALS: BP 143/94; PULSE 91; TEMP 36.8; O2SAT 94; BMI 27.9
--- NOTE | 2022-06-25 15:41 | XR_ITS ---
NOTE: Report was unsigned for reason: Order was edited. Original Signature date and time was: 06/25/2022 1559 WS: [id number] EXAMINATION: [place] [id number] REASON FOR EXAM: Chronic wound from IV drug use COMPARISON: None available. ORDER DATE: 06/25/2022 3:41 PM FINDINGS: There is no sign of any acute osseous or articular abnormality. There is a prominent area of subcutaneous edema and perhaps some soft tissue gas with skin erosions centered in the mid lateral aspect of the upper arm. [facility] XR/[place] [id number] IMPRESSION: Large area of cellulitis and perhaps small collections of subcutaneous air with skin erosion/ulceration. Recommend ultrasound imaging for assessment of a possible subcutaneous abscess.
[2022-06-25 17:34] LABS: Basophils % 0.5 %; Eosinophils # 0.2 10^3/uL (0.0-0.8); Hematocrit 34.8 % (42.0-52.0); Hemoglobin 11.5 g/dL (11.7-16.6); Lymphocytes % 25.6 %; Mean Corpuscular Volume 90.9 fl (80-94); Mean Platelet Volume 9.5 fL (7.4-10.4); Monocytes # 0.6 10^3/uL (0.2-0.9); Neutrophils # 5.01 10^3/uL (1.8-7.7); Nucleated Red Blood Cells % 0 %; Platelet Count 382 10^3/cmm (130-400); Red Blood Count 3.83 10^6/uL (4.1-5.3); Red Cell Distribution Width 13.1 % (12.1-15.1)
[2022-06-25 17:47] LABS: Erythrocyte Sedimentation Rate 40 mm/hr (0-10)
[2022-06-25 17:54] LABS: Alanine Aminotransferase 16 U/L (0-41); Alkaline Phosphatase 110 U/L (40-130); Anion Gap 13.2 (5-19); Aspartate Amino Transferase 16 U/L (0-40); Blood Urea Nitrogen 14 mg/dL (6-20); C Reactive Protein 5.9 mg/L (0.0-4.9); Calcium 9.2 mg/dL (8.5-10.5); Carbon Dioxide 29 mmol/L (22-29); Chloride 100 mmol/L (98-107); Globulin 3.9 g/dL (1.3-4.6); Glomerular Filtration Rate 73.8 mL/min (90-130); Glucose 105 mg/dL (65-115); Osmolality Calculated 287 mOsm/kg (285-295); Potassium 4.2 mmol/L (3.5-5.1); Sodium 138 mmol/L (136-145); Total Bilirubin 0.2 mg/dL (0.15-1.2); Total Protein 7.9 g/dL (6.6-8.7)
--- NOTE | 2022-06-25 20:17 | ED_ITS ---
HPI - Extremity Problem General: Chief complaint: Extremity Injury, Upper Stated complaint: both left and right abscess Time Seen by Provider: 06/25/22 20:06 Source: patient Limitations: no limitations History of Present Illness: See nursing assessment. Patient with complaints of cellulitis and abscesses that are draining pus for the past 4 months to bilateral upper arms on the outer aspects. Patient states that he started using IV methamphetamine about 6 months ago. States he has intermittent fevers but no fever today. Patient also with complaints of anxiety. Reportedly used methamphetamine earlier today according the nurse. Patient denies other complaints. Associated symptoms: Reports fever(s) (Occasional) and rash; Deny chest pain Review of Systems Const: Reports: fever(s) (Occasional); Denies: chills Eyes: Denies: change in vision ENMT: Denies: throat pain Card: Denies: chest pain or palpitations Resp: Denies: dyspnea or wheezing GI: Denies: abdominal pain, nausea or vomiting : Denies: flank pain Musc: Denies: neck pain or back pain Skin/Breast: Reports: rash, erythema, skin tenderness, skin swelling, sores and other (Purulent draining lesions to bilateral upper arms.); Denies: pruritus Neuro: Denies: headache(s) or numbness in extremities Psych: Reports: anxiety Ethan/Lymph: Denies: enlarged lymph nodes [facility] ED PFSH: Medical History Abscess GERD (gastroesophageal reflux disease) Hepatitis C HIV negative test was done 11/19/2009 Heroin addiction IV drug abuse Methadone dependence Polysubstance (excluding opioids) dependence Surgical History History of incision and drainage multiple History of tonsillectomy Family History Mother CAD (coronary artery disease) Social History Smoking and tobacco status: current every day smoker Alcohol intake: never Supplemental PFS Information: Admits to methamphetamine IV drug abuse Physical Exam Const: COMMON NORMALS: no acute distress, patient oriented x3, no limitations and well nourished GENERAL APPEARANCE: cooperative HENMT: COMMON NORMALS: normocephalic and atraumatic HEAD & SCALP: normocephalic and atraumatic FACE & SINUS: normal facial exam Eye: COMMON NORMALS: EOMs intact bilaterally Neck/C-Spine: COMMON NORMALS: full ROM, no lymphadenopathy, supple and no meningeal signs GENERAL: Yes normal visual inspection Lymph: LYMPHATIC: no lymphadenopathy noted Chest: COMMONS NORMALS: normal inspection of the chest and normal palpation of entire chest wall CHEST: No Ecchymosis present and No rash Resp: COMMON NORMALS: normal respiratory effort, No retractions and clear to auscultation bilaterally EFFORT & INSPECTION: No respiratory distress AUSCULTATION: clear to auscultation bilaterally Cardio: COMMON NORMALS: regular rate, regular rhythm and Peripheral pulses 2+ throughout JUGULAR VENOUS DISTENTION: no JVD RATE: regular rate RHYTHM: regular rhythm PERIPHERAL PULSES: Peripheral pulses 2+ throughout GI: COMMON NORMALS: Normal to inspection, nondistended, normoactive bowel sounds present and non-tender : COMMON NORMALS: Yes no CVA tenderness BLADDER/KIDNEY EXAM: Yes no CVA tenderness Back/Pelvis: COMMON NORMALS: no CVA tenderness Extremity: OTHER: Range of motion of bilateral upper extremities is normal. Patient has indurated cellulitic areas of lateral aspects of bilateral upper arms with multiple draining subcutaneous abscesses. Patient reports this is been ongoing for approximately 4 months. Patient has no streaking cellulitis. Peripheral pulses are normal. Neuro: COMMON NORMALS: patient oriented x3, CN's II-XII intact bilaterally, no focal motor deficits and no sensory deficits noted MENINGEAL SIGNS: Yes no meningeal signs Psych: COMMON NORMALS: mental status grossly normal and Normal thought process present THOUGHT PROCESS: Normal thought process present Skin: OTHER: See extremity exam. Patient has multiple areas of draining subcutaneous abscesses, indurated areas. No fluctuant areas found. Course Vital Signs: Vital signs: Vital Signs Temperature 98.2 F 06/25/22 15:30 Pulse Rate 83 06/25/22 22:20 Respiratory Rate 12 06/25/22 22:20 Blood Pressure 106/60 06/25/22 22:20 Pulse Oximetry 93 06/25/22 22:20 Oxygen Delivery Me thod 06/25/22 22:20 MDM - Extremity (Nontraumatic) Medical Decision Making Patient has obvious staph infections of bilateral upper extremities from IV drug abuse. Patient has multiple abscesses that are spontaneously draining. Therefore, will treat patient with IV vancomycin and IV Rocephin today. We will have patient return tomorrow in approximately 24 hours for recheck. If symptoms are much worse, patient may require inpatient therapy. Otherwise, patient would do well with outpatient IV antibiotics for the next few days. Patient requesting antianxiety medication. I discussed with him that I would only prescribe nonbenzodiazepine antianxiety medication. 2240: Patient was tolerating IV antibiotics well. No evidence of allergic reaction to either ceftriaxone or vancomycin. Patient will be discharged at the completion of infusion of the vancomycin. Lab Data 06/25/22 17:12 06/25/22 17:12 Laboratory Results WBC 8.0 10^3/uL (4.0-10.0) 06/25/22 17:12 RBC 3.83 10^6/uL (4.1-5.3) L 06/25/22 17:12 Hgb 11.5 g/dL (11.7-16.6) L 06/25/22 17:12 Hct 34.8 % (42.0-52.0) L 06/25/22 17:12 MCV 90.9 fl (80-94) 06/25/22 17:12 MCH 30.0 pg (28.0-34.0) 06/25/22 17:12 MCHC 33.0 g/dL (30.0-36.0) 06/25/22 17:12 RDW 13.1 % (12.1-15.1) 06/25/22 17:12 Plt Count 382 10^3/cmm (130-400) 06/25/22 17:12 MPV 9.5 fL (7.4-10.4) 06/25/22 17:12 Neut % (Auto) 63.0 % 06/25/22 17:12 Lymph % (Auto) 25.6 % 06/25/22 17:12 [place] % (Auto) 7.0 % 06/25/22 17:12 Eos % (Auto) 3.0 % 06/25/22 17:12 Baso % (Auto) 0.5 % 06/25/22 17:12 Neut # (Auto) 5.01 10^3/uL (1.8-7.7) 06/25/22 17:12 Lymph # (Auto) 2.0 10^3/uL (0.8-4.8) 06/25/22 17:12 [place] # (Auto) 0.6 10^3/uL (0.2-0.9) 06/25/22 17:12 Eos # (Auto) 0.2 10^3/uL (0.0-0.8) 06/25/22 17:12 Baso # (Auto) 0.0 10^3/uL (0.0-0.1) 06/25/22 17:12 Nucleated RBC % (auto) 0 % 06/25/22 17:12 Nucleated RBCs # 0.0 /100WBC 06/25/22 17:12 ESR 40 mm/hr (0-10) H 06/25/22 17:12 Sodium 138 mmol/L (136-145) 06/25/22 17:12 Potassium 4.2 mmol/L (3.5-5.1) 06/25/22 17:12 Chloride 100 mmol/L (98-107) 06/25/22 17:12 Carbon Dioxide 29 mmol/L (22-29) 06/25/22 17:12 Anion Gap 13.2 (5-19) 06/25/22 17:12 BUN 14 mg/dL (6-20) 06/25/22 17:12 Creatinine 1.1 mg/dL (0.7-1.2) 06/25/22 17:12 GFR Calculation 73.8 mL/min (90-130) L 06/25/22 17:12 Glucose 105 mg/dL (65-115) 06/25/22 17:12 Calculated Osmolality 287 mOsm/kg (285-295) 06/25/22 17:12 Calcium 9.2 mg/dL (8.5-10.5) 06/25/22 17:12 Total Bilirubin 0.2 mg/dL (0.15-1.2) 06/25/22 17:12 AST 16 U/L (0-40) 06/25/22 17:12 ALT 16 U/L (0-41) 06/25/22 17:12 Alkaline Phosphatase 110 U/L (40-130) 06/25/22 17:12 C-Reactive Protein 5.9 mg/L (0.0-4.9) H 06/25/22 17:12 Total Protein 7.9 g/dL (6.6-8.7) 06/25/22 17:12 Albumin 4.0 g/dL (3.5-5.2) 06/25/22 17:12 Globulin 3.9 g/dL (1.3-4.6) 06/25/22 17:12 Imaging Data Other Xray: Radiologist's impression: Ordering Provider/Ordering MD: Tristen Barba Date of Service: 06/25/22 Procedure(s): [place] [id number] Accession Number(s): [id number] Report Number: [id number] WS: [id number] EXAMINATION: [place] [id number] REASON FOR EXAM: Chronic wound from IV drug use COMPARISON: None available. ORDER DATE:? 06/25/2022 3:41 PM FINDINGS: There is no sign of any acute osseous or articular abnormality. There is a prominent area of subcutaneous edema and perhaps some soft tissue gas with skin erosions centered in the mid lateral aspect of the upper arm. Dictated By: Arben Carney MD Signed By: Arben Carney MD Signed Date/Time: 06/25/22 1636 DD/ 1559 Discharge Plan Discharge Patient Disposition: Home Clinical Impression: Abscess of upper arm Cellulitis Qualifiers: Site of cellulitis of extremity: upper extremity Qualified Code(s): L03.119 - C ellulitis of unspecified part of limb Condition: Stable Prescriptions: New cephalexin 500 mg capsule 500 mg PO QID 7 Days Qty: 28 0RF Rx Instructions: for infection sulfamethoxazole-trimethoprim [Bactrim DS] 800-160 mg tablet 1 tab PO BID 10 Days Qty: 20 0RF Rx Instructions: for infection buspirone 7.5 mg tablet 7.5 mg PO BID Qty: 30 1RF Rx Instructions: for anxiety No Action methadone 40 mg Tablet,Soluble 40 mg PO DAILY hydrocodone-acetaminophen 5-325 mg Tablet 1 tab PO Q8H PRN (Reason: Moderate Pain) Qty: 5 0RF Discharge Orders: Discharge ED (Routine); Ordered 06/25/22 Ordered By: Manjeet Bro Discharge Diet: Advance as tolerated Discharge Activity: Increase activity as tolerated Patient Instructions: Cellulitis (ED), Abscess (ED), Anxiety (ED), Opioid Safety, Pain Management Activity Restrictions/Additional Instructions: Return to ER in approximately 20 to 24 hours for recheck of wounds. You likely will require repeat IV antibiotics. Start oral antibiotics the day following your last dose of IV antibiotic. Drink plenty of fluids. May take BuSpar as needed for anxiety. Avoid methamphetamine use. Coding Level of Care Code ED Machine Container Washer for Ernestine Riggins History Comprehensive Exam Comprehensive Medical Decision Making Moderate Complexity
[2022-06-25] MEDS: LORazepam 1 mg Tablet PO (20:21)
[2022-06-25] MEDS: cefTRIAXone 1,000 MG in sodium chloride 0.9% (plus) 50 ML 100 MG IV (20:36)
[2022-06-25 22:20] VITALS: BP 106/60; PULSE 83; RESP 12; O2SAT 93
== END 2022-06-25 23:24 | disposition home or self-care (01) ==
PROVIDERS: Physician Assistant; Emergency Provider Family Medicine
DX: L02.414 Cutaneous abscess of left upper limb (principal); L02.413 Cutaneous abscess of right upper limb; L03.114 Cellulitis of left upper limb; L03.113 Cellulitis of right upper limb; F41.9 Anxiety disorder, unspecified; F15.10 Other stimulant abuse, uncomplicated
CPT/HCPCS: 36415; 73060; 80053; 85025; 85651; 86140; 87040; 96365; 96367; 99284; J0696; J3370; J7040

== ENCOUNTER 2023-02-09 22:39 | Inpatient (IN) | payer MEDICAID, SELFPAY ==
[2023-02-09 22:45] VITALS: BP 139/91; PULSE 110; RESP 18; TEMP 37.4; O2SAT 100; BMI 26.6
--- NOTE | 2023-02-09 23:57 | CTR_ITS ---
PROCEDURE INFORMATION: Exam: CT Right Lower Extremity Without Contrast; Lower Leg Exam date and time: 02/10/2023 1:14 AM Age: 42 years old Clinical indication: Cellulitis; Lower leg; Right; Additional info: Cellulitis, iv drug user. Rle cellulitis, abscess? Edema knee to foot TECHNIQUE: Imaging protocol: CT of the right lower extremity without contrast was performed. Exam focused on the lower leg. Sagittal and coronal reformatted images were created and reviewed. Radiation optimization: All CT scans at this facility use at least one of these dose optimization techniques: automated exposure control; mA and/or kV adjustment per patient size (includes targeted exams where dose is matched to clinical indication); or iterative reconstruction. REPORTING DATA: Count of CT and Cardiac NM exams in prior 12 months: This patient has received 0 known CTs and 0 known cardiac nuclear medicine studies in the 12 months prior to the current study. COMPARISON: CT Low Extremity w RIGHT [id number] 05/06/2018 9:44 AM RADIATION DOSE METRICS: Total DLP (mGy-cm): 511.71 FINDINGS: Bones/joints: No acute fracture. No dislocation. Normal bone mineralization. No joint effusion. Joint spaces are maintained. No lytic or sclerotic bony lesions. Soft tissues: Diffuse moderate to severe subcutaneous edema, particularly around the right ankle. Few small foci of emphysema in the skin of the lateral right lower leg with additional multiple foci of adjacent underlying subcutaneous emphysema. No loculated fluid collections to suggest an abscess. Vasculature: Visualized vessels are patent. CT/CT lower leg RT w con [id number] IMPRESSION: 1. Few small foci of emphysema in the skin of the lateral right lower leg with additional multiple foci of adjacent underlying subcutaneous emphysema. Subcutaneous emphysema may be due to an open wound, recommend clinical correlation to rule out possible necrotizing fasciitis. 2. Findings suspicious for cellulitis at the right lower leg, particularly around the right ankle. No abscess. 3. No evidence for osteomyelitis. MRI without and with contrast may be obtained if there is continuing clinical concern for osteomyelitis. If the patient has any contradiction for MRI, 3 phase bone scan in conjunction with white blood cell scan may be obtained.
[2023-02-10] VITALS (18 sets, daily range): BP systolic 92–161; BP diastolic 58–111; PULSE 3–108; RESP 16–18; TEMP 36.2–36.6; O2SAT 90–100
[2023-02-10] MEDS: morphine 4 mg/mL SDV 1 mL IVP (01:02)
[2023-02-10] MEDS: sodium chloride 0.9% 1,000 ML 999 ML IV ×2 (01:03→01:57)
[2023-02-10 01:05] LABS: Basophils % 0.4 %; Eosinophils # 0.1 10^3/uL (0.0-0.8); Eosinophils % 0.8 %; Hematocrit 29.9 % (42.0-52.0); Hemoglobin 9.9 g/dL (11.7-16.6); Lymphocytes # 1.3 10^3/uL (0.8-4.8); Lymphocytes % 13.9 %; Mean Corpuscular HGB Conc 33.1 g/dL (30.0-36.0); Mean Corpuscular Hemoglobin 29.9 pg (28.0-34.0); Mean Corpuscular Volume 90.3 fl (80-94); Mean Platelet Volume 9.6 fL (7.4-10.4); Monocytes # 1.3 10^3/uL (0.2-0.9); Monocytes % 13.4 %; Neutrophils # 6.79 10^3/uL (1.8-7.7); Neutrophils % 71.1 %; Nucleated Red Blood Cells % 0 %; Platelet Count 267 10^3/cmm (130-400); Red Blood Count 3.31 10^6/uL (4.1-5.3); Red Cell Distribution Width 13.2 % (12.1-15.1); White Blood Count 9.6 10^3/uL (4.0-10.0)
[2023-02-10] MEDS: diazePAM 5 mg Tablet 10 MG PO (01:07)
[2023-02-10 01:08] LABS: Erythrocyte Sedimentation Rate 24 mm/hr (0-10)
[2023-02-10 01:11] LABS: D Dimer 1.13 ug/mIFEU (0-0.59)
--- NOTE | 2023-02-10 01:14 | USR_ITS ---
PROCEDURE INFORMATION: Exam: US Duplex Right Lower Extremity Veins, Limited Exam date and time: 02/10/2023 1:38 AM Age: 42 years old Clinical indication: Pain; Edema, localized; Lower extremity, right; Leg, lower; Patient HX: Iv drug user, injected to rle, now swelling, erythema, open sores; Additional info: Swelling, iv drug user- injected to rle. Swelling, redness, elevated TECHNIQUE: Imaging protocol: Real-time duplex ultrasound of the right extremity with 2-D mari scale, color Doppler flow and spectral waveform analysis including responses to compression and other maneuvers (when performed) with image documentation. Limited exam was focused on the right lower extremity veins. COMPARISON: CT Low Extremity w RIGHT [id number] 05/06/2018 9:44 AM FINDINGS: Right deep veins: Unremarkable. The common femoral, femoral, proximal profunda femoral, popliteal, posterior tibial, and peroneal veins are patent without thrombus. Normal Doppler waveforms. Normal compressibility and/or augmentation response. Right superficial veins: Unremarkable. Saphenofemoral junction is patent without thrombus. Soft tissues: Unremarkable. US/[place] [id number] IMPRESSION: No evidence for deep venous thrombosis in the right lower extremity.
[2023-02-10] MEDS: iohexol 350 mg/mL 500 mL Btl (per mL) IV ×3 (01:18→12:27)
--- NOTE | 2023-02-10 01:21 | ED_ITS ---
HPI - Skin/Abscess/Foreign Bdy General: Chief complaint: Skin/Abscess/Foreign Body Stated complaint: right leg pain Time Seen by Provider: 02/09/23 22:49 Source: patient Mode of arrival: ambulatory Limitations: no limitations History of Present Illness: Patient presents to the emergency department today for evaluation treatment of multiple concerns regarding skin infection, edema, and pain. Patient admits he is a 20+ year IV drug user. Patient has chronic wounds on his extremities with large open wounds to the upper arms bilaterally. Patient has injection her on his right lower extremity as well. However, over the last several days patient has developed sudden redness, swelling, and pain affecting the right lower extremity from below the knee to his toes. Patient is unsure of any fevers at home. Review of Systems General: Reports: 10 or more systems reviewed and unremarkable except in HPI and below PFSH ED PFSH: Medical History Abscess GERD (gastroesophageal reflux disease) Hepatitis C HIV negative test was done 11/19/2009 Heroin addiction IV drug abuse Methadone dependence Polysubstance (excluding opioids) dependence Surgical History History of incision and drainage multiple History of tonsillectomy Family History Mother CAD (coronary artery disease) Social History Smoking and tobacco status: current every day smoker Alcohol intake: never Substance/Drug Use: former Physical Exam Const: COMMON NORMALS: no acute distress, average body habitus and patient oriented x3 HENMT: COMMON NORMALS: normocephalic, atraumatic, hearing grossly normal bila terally, Normal external nose present and moist oral mucous membranes HEAD & SCALP: normocephalic and atraumatic NOSE: Normal external nose present Eye: COMMON NORMALS: Equal, round and reactive pupils present, EOMs intact bilaterally and conjunctivae normal CONJUNCTIVA: Yes conjunctivae normal PUPIL: Yes Equal, round and reactive pupils present Neck/C-Spine: COMMON NORMALS: no JVD Lymph: LYMPHATIC: no lymphadenopathy noted Resp: COMMON NORMALS: normal respiratory effort, No retractions and No use of accessory muscles Cardio: COMMON NORMALS: no JVD, regular rate and regular rhythm RATE: r egular rate RHYTHM: regular rhythm GI: COMMON NORMALS: Normal to inspection, nondistended, normoactive bowel sounds present : COMMON NORMALS: Yes no CVA tenderness BLADDER/KIDNEY EXAM: Yes no CVA tenderness Back/Pelvis: COMMON NORMALS: no CVA tenderness and thoraco-lumbar ROM normal Extremity: COMMON NORMALS: normal to inspection, full ROM and capillary refill normal NARRATIVE EXTREMITY EXAM: Patient is able to wiggle his toes and perform some range of motion of the right ankle however, it is extremely tender and sore and he has extreme pain with weightbearing and ambulation. Neuro: COMMON NORMALS: patient oriented x3 Psych: COMMON NORMALS: mental status grossly normal, Normal thought process present, cooperative, normal affect and activity/motor behavior normal THOUGHT PROCESS: Normal thought process present Skin: NARRATIVE SKIN EXAM: Patient has a large open and ulcerated wound to the left mid arm region approx 8cm long and 4 cm wide. It appears chronic with large scarring surrounding the open wound. There is no active draining or bleeding. Patient has small areas of eschar scabbing noted within the wound. Patient has similar on the right mid upper arm. Patient with multiple scars and injection sites to his right lateral upper thigh. Similar to right lateral calf however, patient has significant erythema extending from just below the knee to the toes circumferentially. Lower extremity is edematous with pitting edema present. Skin is warm to touch. Course Vital Signs: Vital signs: Vital Signs Temperature 99.4 F 02/09/23 22:45 Pulse Rate 108 H 02/10/23 00:57 Respiratory Rate 18 02/10/23 01:02 Blood Pressure 161/111 02/10/23 01:09 Pulse Oximetry 100 02/10/23 01:02 Oxygen Delivery Me thod Room Air 02/10/23 00:57 MDM - Skin/Abscess/Foreign Bdy Medicial Decision Making Patient presents to the emergency department today for concerns of redness, swelling, pain of his right lower extremity. Patient is very upfront about his IV drug use. Patient has chronic ulcerations and open wounds to his upper extremities bilaterally which, while significant on first evaluation, do appear chronic and actually somewhat stable as they do not appear significantly swollen, erythematous, or showing any signs of draining. Has large areas of scarring on his extremities including his right upper thigh from injections. However, patient's right lower extremity is quite swollen, warm to touch, erythematous, and painful. This does appear to be the more acute concern for e valuation here in the ER today. Patient was found to be slightly tachycardic and temperature 99.5. Lab work is generally stable. He does not have a significant white blood cell count but does appear little dehydrated. Fluids were provided. Patient was also given medication for pain and admits he is extremely anxious and request something to help calm him down. Patient was provided Valium. D-dimer was elevated. US venous dopplar and CT soft tissue RLE ordered. I was notified by nursing staff that the lab had missed his draw for his blood cultures. They were told that the lab will try again however, patient stated he would not allow them to poke him anymore and refused blood culture d raws. Transfer care to Dr. Queen at this time (299) to follow-up on CT/US results to determine intervention and treatment for this patient. Differential Diagnosis Likely abscess of skin or subcutaneous tissue, allergic reaction to drug, cellulitis, insect bites and impetigo Lab Data 02/10/23 00:51 02/10/23 00:51 Laboratory Results WBC 9.6 10^3/uL (4.0-10.0) 02/10/23 00:51 RBC 3.31 10^6/uL (4.1-5.3) L 02/10/23 00:51 Hgb 9.9 g/dL (11.7-16.6) L 02/10/23 00:51 Hct 29.9 % (42.0-52.0) L 02/10/23 00:51 MCV 90.3 fl (80-94) 02/10/23 00:51 MCH 29.9 pg (28.0-34.0) 02/10/23 00:51 MCHC 33.1 g/dL (30.0-36.0) 02/10/23 00:51 RDW 13.2 % (12.1-15.1) 02/10/23 00:51 Plt Count 267 10^3/cmm (130-400) 02/10/23 00:51 MPV 9.6 fL (7.4-10.4) 02/10/23 00:51 Neut % (Auto) 71.1 % 02/10/23 00:51 Lymph % (Auto) 13.9 % 02/10/23 00:51 [place] % (Auto) 13.4 % 02/10/23 00:51 Eos % (Auto) 0.8 % 02/10/23 00:51 Baso % (Auto) 0.4 % 02/10/23 00:51 Neut # (Auto) 6.79 10^3/uL (1.8-7.7) 02/10/23 00:51 Lymph # (Auto) 1.3 10^3/uL (0.8-4.8) 02/10/23 00:51 [place] # (Auto) 1.3 10^3/uL (0.2-0.9) H 02/10/23 00:51 Eos # (Auto) 0.1 10^3/uL (0.0-0.8) 02/10/23 00:51 Baso # (Auto) 0.0 10^3/uL (0.0-0.1) 02/10/23 00:51 Nucleated RBC % (auto) 0 % 02/10/23 00:51 Nucleated RBCs # 0.0 /100WBC 02/10/23 00:51 ESR 24 mm/hr (0-10) H 02/10/23 00:51 D-Dimer 1.13 ug/mIFEU (0-0.59) H 02/10/23 00:51 Sodium 138 mmol/L (136-145) 02/10/23 00:51 Potassium 3.9 mmol/L (3.5-5.1) 02/10/23 00:51 Chloride 100 mmol/L (98-107) 02/10/23 00:51 Carbon Dioxide 28 mmol/L (22-29) 02/10/23 00:51 Anion Gap 13.9 (5-19) 02/10/23 00:51 BUN 10 mg/dL (6-20) 02/10/23 00:51 Creatinine 1.1 mg/dL (0.7-1.2) 02/10/23 00:51 GFR Calculation 73.4 mL/min (90-130) L 02/10/23 00:51 Glucose 97 mg/dL (65-115) 02/10/23 00:51 Calculated Osmolality 285 mOsm/kg (285-295) 02/10/23 00:51 Calcium 8.5 mg/dL (8.5-10.5) 02/10/23 00:51 Total Bilirubin 0.5 mg/dL (0.15-1.2) 02/10/23 00:51 AST 15 U/L (0-40) 02/10/23 00:51 ALT 12 U/L (0-41) 02/10/23 00:51 Alkaline Phosphatase 96 U/L (40-130) 02/10/23 00:51 C-Reactive Protein 78.6 mg/L (0.0-4.9) H 02/10/23 00:51 Total Protein 7.2 g/dL (6.6-8.7) 02/10/23 00:51 Albumin 3.8 g/dL (3.5-5.2) 02/10/23 00:51 Globulin 3.4 g/dL (1.3-4.6) 02/10/23 00:51 Procalcitonin 0.25 ng/mL (0-0.5) 02/10/23 00:51 Discharge Plan Discharge Condition: Stable Prescriptions: No Action methadone 40 mg Tablet,Soluble 40 mg PO DAILY hydrocodone-acetaminophen 5-325 mg Tablet 1 tab PO Q8H PRN (Reason: Moderate Pain) Qty: 5 0RF buspirone 7.5 mg tablet 7.5 mg PO BID Qty: 30 1RF Rx Instructions: for anxiety Coding Level of Care Code ED Leasing Representative for Chg Vaishnavi
[2023-02-10 01:23] LABS: Alanine Aminotransferase 12 U/L (0-41); Albumin Level 3.8 g/dL (3.5-5.2); Alkaline Phosphatase 96 U/L (40-130); Anion Gap 13.9 (5-19); Aspartate Amino Transferase 15 U/L (0-40); Blood Urea Nitrogen 10 mg/dL (6-20); C Reactive Protein 78.6 mg/L (0.0-4.9); Calcium 8.5 mg/dL (8.5-10.5); Carbon Dioxide 28 mmol/L (22-29); Chloride 100 mmol/L (98-107); Globulin 3.4 g/dL (1.3-4.6); Glomerular Filtration Rate 73.4 mL/min (90-130); Glucose 97 mg/dL (65-115); Osmolality Calculated 285 mOsm/kg (285-295); Potassium 3.9 mmol/L (3.5-5.1); Sodium 138 mmol/L (136-145); Total Bilirubin 0.5 mg/dL (0.15-1.2); Total Protein 7.2 g/dL (6.6-8.7)
[2023-02-10 01:30] LABS: Procalcitonin 0.25 ng/mL (0-0.5)
--- NOTE | 2023-02-10 02:50 | PC.NURSE ---
Patient refusing to be stuck for blood cultures at this time. International Student Counselor notified.
[2023-02-10 03:05] LABS: Add Urine Microscopic? YES; Bilirubin Urine Neg (Negative); Blood Urine Neg (Negative); Glucose Urine UA Norm (Normal); Ketones Urine Negative (Negative); Leukocyte Esterase Urine Negative (Negative); Mucus Urine 3+ /hpf; Nitrate Urine Negative (Negative); Protein Urine Trace (Negative); Specific Gravity, Urine 1.025 (1.005-1.030); Urine Appearance Hazy (CLEAR); Urine Color Yellow (Yellow); Urobilinogen Urine Neg (Negative); pH Urine 5 (5-7)
[2023-02-10 03:06] LABS: Add Urine Culture? No
[2023-02-10 03:13] LABS: Amphetamines Screen Urine Positive (Negative); Benzodiazepines Screen Urine Positive (Negative); Cocaine Screen Urine Negative (Negative); Opiate Screen Urine Positive (Negative); PCP Screen Urine Negative (Negative); THC Screen Urine Positive (Negative)
[2023-02-10 03:14] LABS: Barbiturates Screen Urine Negative (Negative)
[2023-02-10] MEDS: vancomycin 1,000 MG in sodium chloride 0.9% 250 ML 250 MG IV (03:37)
--- NOTE | 2023-02-10 03:46 | CTR_ITS ---
PROCEDURE INFORMATION: Exam: CT Right Upper Extremity With Contrast, Upper Arm Exam date and time: 02/10/2023 5:24 AM Age: 42 years old Clinical indication: Other: Iv drug user with upper arm abscesses; Additional info: Osteo, abscess TECHNIQUE: Imaging protocol: Computed tomography of the right upper extremity with contrast. Exam focused on the upper arm. Radiation optimization: All CT scans at this facility use at least one of these dose optimization techniques: automated exposure control; mA and/or kV adjustment per patient size (includes targeted exams where dose is matched to clinical indication); or iterative reconstruction. Contrast material: OMNI 350; Contrast volume: 25 ml; Contrast route: INTRAVENOUS (IV); REPORTING DATA: Count of CT and Cardiac NM exams in prior 12 months: This patient has received 0 known CTs and 0 known cardiac nuclear medicine studies in the 12 months prior to the current study. COMPARISON: [place] [id number] 06/25/2022 3:47 PM RADIATION DOSE METRICS: Total DLP (mGy-cm): 742.63 FINDINGS: Bones/joints: Normal. No acute fracture or dislocation. Soft tissues: There is notable skin thickening and subcutaneous edema noted along the lateral aspect of the upper arm. CT/CT humerus RT w con [id number] IMPRESSION: Cellulitis, right arm. No drainable fluid collection.
--- NOTE | 2023-02-10 03:46 | CTR_ITS ---
PROCEDURE INFORMATION: Exam: CT Left Upper Extremity With Contrast, Upper Arm Exam date and time: 02/10/2023 5:20 AM Age: 42 years old Clinical indication: Other: Iv drug user with upper arm abscesses; Additional info: Osteo, abscess TECHNIQUE: Imaging protocol: Computed tomography of the left upper extremity with contrast. Exam focused on the upper arm. Radiation optimization: All CT scans at this facility use at least one of these dose optimization techniques: automated exposure control; mA and/or kV adjustment per patient size (includes targeted exams where dose is matched to clinical indication); or iterative reconstruction. Contrast material: OMNI 350; Contrast volume: 50 ml; Contrast route: INTRAVENOUS (IV); REPORTING DATA: Count of CT and Cardiac NM exams in prior 12 months: This patient has received 0 known CTs and 0 known cardiac nuclear medicine studies in the 12 months prior to the current study. COMPARISON: [place] [id number] 06/25/2022 3:47 PM RADIATION DOSE METRICS: Total DLP (mGy-cm): 818.66 FINDINGS: Bones/joints: Normal. No acute fracture or dislocation. Soft tissues: There is notable skin thickening, subcutaneous edema and ulceration with bubbles of subcutaneous air along the lateral aspect of the arm. No drainable fluid collection is appreciated. Mild axillary lymphadenopathy is noted. CT/CT humerus LT w con [id number] IMPRESSION: Left arm cellulitis and ulceration. No drainable fluid collection identified.
--- NOTE | 2023-02-10 03:46 | CTR_ITS ---
PROCEDURE INFORMATION: Exam: CT Maxillofacial Without Contrast Exam date and time: 02/10/2023 5:17 AM Age: 42 years old Clinical indication: Other: Dental abscess; Patient HX: Iv drug user with abscesses TECHNIQUE: Imaging protocol: Computed tomography of the face without contrast. Radiation optimization: All CT scans at this facility use at least one of these dose optimization techniques: automated exposure control; mA and/or kV adjustment per patient size (includes targeted exams where dose is matched to clinical indication); or iterative reconstruction. REPORTING DATA: Count of CT and Cardiac NM exams in prior 12 months: This patient has received 0 known CTs and 0 known cardiac nuclear medicine studies in the 12 months prior to the current study. COMPARISON: CT head wo con* [id number] 03/05/2017 1:12 PM RADIATION DOSE METRICS: Total DLP (mGy-cm): 589.58 FINDINGS: Orbital cavities: Orbits are normal. Globes are unremarkable. Bones/joints: See Dental finding. Paranasal sinuses: Normal. No air-fluid levels. Soft tissues: Unremarkable. Nasal cavity: There is leftward convexity deviation of the nasal septum. Dental: There is poor dentition with periapical lucency surrounding the roots of the lower right 1st molar . There is no cortical breakthrough. There is notable erosion surrounding the roots of attenuated left lower molars. Periapical lucency is also noted about the root of the upper right lateral incisor , 2nd premolar and 1st molar. There is notable erosive change surrounding the root of the left upper 2nd molar with lateral cortical breakthrough. Malpositioned 3rd molars are noted. Other findings: Lack of intravenous contrast limits assessment for fluid collections. CT/CT facial bones wo con* [id number] IMPRESSION: Notable poor dentition with periapical lucency surrounding the roots of several teeth. Please correlate clinically. No obvious drainable fluid collection although evaluation is limited on this noncontrast CT.
[2023-02-10] MEDS: LORazepam 2 mg/mL INJ 1 mL IVP (03:54)
[2023-02-10 04:04] LABS: Lactic Sepsis W/Reflex 0.4 mmol/L (0.5-2.2)
[2023-02-10 04:07] LABS: Iron 13 ug/dL (59-158); Percent Saturation 5.2 % (20-50); Total Iron Binding Capacity 250 mcg/dl; Unsaturated Iron Binding 237 ug/dL (112-347)
[2023-02-10 04:22] LABS: Vitamin B12 490 pg/mL (232-1245)
--- NOTE | 2023-02-10 04:22 | PC.NURSE ---
Blood culture draw Lab unable to obtain blood culture at this time. Nurse attempted X1 and blew vein.
--- NOTE | 2023-02-10 04:50 | USCV_ITS ---
Daniella Zenon Age: 42 Gender: M : 1980 Exam Date: 02/10/2023 07:44 Ordering Phys: Kaushal Haq MD Technologist: Abdirizak Carvalho Exam Location: [facility] [place] Indication: ? veg BP: 134 / 73 HR: 63 Rhythm: Sinus Technical Quality: Adequate MEASUREMENTS (Male / Female) Normal Values 2D ECHO LV Diastolic Diameter PLAX 3.8 cm 4.2 - 5.9 / 3.9 - 5.3 cm LV Systolic Diameter PLAX 2.7 cm IVS Diastolic Thickness 1.0 cm 0.6 - 1.0 / 0.6 - 0.9 cm IVS Systolic Thickness 1.5 cm LVPW Diastolic Thickness 0.9 cm 0.6 - 1.0 / 0.6 - 0.9 cm LVPW Systolic Thickness 1.8 cm LVOT Diameter 2.0 cm LV Ejection Fraction 2D Teich 54.8 % LV Ejection Fraction MOD 2C 71.5 % LV Ejection Fraction 2C AL 70.7 % LA Diameter 3.9 cm IVC Diameter 1.4 cm M-MODE Aortic Annulus Diameter 3.5 cm LA Ao Ratio MM 1.4 MV E Point Septal Separation 1.3 cm DOPPLER AV Peak Velocity 127.0 cm/s LVOT Peak Velocity 85.0 cm/s AV Area Cont Eq vti 2.1 cm squared AV Area Cont Eq pk 2.2 cm squared MV Area PHT 2.8 cm squared Mitral E to A Ratio 2.1 MV E' Velocity 48.5 cm/s Mitral E to MV E' Ratio 6.6 Mitral E to LV E' Lateral Ratio 6.2 Mitral E to LV E' Septal Ratio 7.1 TR Peak Velocity 234.5 cm/s TR Peak Gradient 22.0 mmHg TV Peak E Velocity 121.0 cm/s Right Atrial Pressure 3.0 mmHg Pulmonary Artery Systolic Pressu 25.0 mmHg PV Peak Velocity 78.0 cm/s RV Acceleration Time 0.2 s FINDINGS Left Ventricle Left ventricle is normal in size. LV systolic function is normal with EF of 55 to 60%. No regional wall motion abnormalities are seen. Right Ventricle Normal in size and function Right Atrium Normal in size Left Atrium Normal in size Mitral Valve Structurally normal mitral valve. Trace mitral regurgitation Aortic Valve Structurally normal aortic valve. No significant stenosis or regurgitation Tricuspid Valve Grossly normal. Mild tricuspid regurgitation. Pulmonary artery systolic pressure is normal. Pulmonic Valve Not well visualized Pericardium Normal Aorta Normal in size IVC Appears to be normal CONCLUSIONS LV systolic function is normal with EF 55 to 60%. Trace mitral regurgitation Mild tricuspid regurgitation. Servando Chang MD (Electronically Signed) Final Date: 13 February 2023 09:16 S
[2023-02-10] MEDS: sodium chloride 0.9% 1,000 ML 75 ML IV ×2 (04:51→19:52)
--- NOTE | 2023-02-10 04:51 | PM.HP ---
Providers/Chief Complaint Admitting Physician: Kaushal Haq MD Chief Complaint: right leg pain History of Present Illness Zenon Brewer is a 42 year old male with history of polysubstance abuse with heroin, amphetamines, fentanyl, multiple skin infections including open wounds on bilateral forearms presented to the ER with swelling and pain in the right leg accompanied by a caregiver. Patient gives history of recent drug abuse, as recently as yesterday. Denies any fever. States he has had multiple infections on bilateral forearms for which he gets treatment but leaves him with pain and gets worse again which makes him abuse drugs even more. Also complaining of pain in his mouth at an extracted tooth for last 3 days. Denies any fever, nausea, vomiting. Patient states he is aware that all his problems are because of drug abuse and wants to go to a rehab on discharge. We discussed that there is a high chance that patient has abscesses along with cellulitis of his lower limb which will possibly require I&D, high chances of bacteremia requiring prolonged antibiotics. Also discussed that patient will most likely need multiple blood draws a day along with blood cultures and most likely he will be in hospital for a week for 10 days. Patient is agreeable to stay through the course of treatment and do water what needed to get better. Review of Systems General: Reports: 10 or more systems reviewed and unremarkable except in HPI and below Const: Denies: fever(s), chills, body aches, change in appetite, change in weight, malaise, night sweats, diaphoresis, change in sleep pattern, daytime sleepiness or snoring Eyes: Denies: change in vision, blurry vision, photophobia, eye discomfort or eye discharge ENMT: Denies: throat pain, enlarged tonsils, hoarseness, mouth pain, oral sores, dry mouth, tinnitus, nasal congestion or post nasal drip Card: Denies: chest pain, palpitations, irregular heart rhythm, edema, swelling of feet/ankles, lightheadedness, syncope, pre-syncope, dyspnea on exertion, orthopnea, leg pain with exertion or acrocyanosis Resp: Denies: dyspnea, productive cough, non-productive cough, wheezing, stridor, pain on inspiration, change in phlegm color, hemoptysis or chest congestion GI: Denies: abdominal pain, nausea, vomiting, hematemesis, coffee ground emesis, dysphagia, heartburn, diarrhea, constipation, bloating, GI cramping, change in bowel habits, pain on defecation, hematochezia or melena : Denies: flank pain, difficulty urinating, dysuria, urinary frequency, urinary urgency, urinary hesitancy, urinary dribbling, difficulty starting urination, change in urine stream, nocturia or hematuria Musc: Denies: neck pain, back pain, extremity pain, joint pain, joint swelling, joint redness, joint stiffness or limited range of motion Neuro: Denies: headache(s), numbness in extremities, weakness in extremities, sensory changes, lack of coordination, difficulty walking, frequent falls, dizziness, vertigo, confusion, Slurred speech present, difficulty communicating thoughts or seizure-like activity Psych: Denies: anxiety, depression, mood swings, panic attacks, hopelessness or irritability Endo: Denies: polyuria, polydipsia, tired all the time, cold intolerance, excessive sweating, flushing or heat intolerance Ethan/Lymph: Denies: easy bruising or easy bleeding All/Imm: Denies: tongue swelling, facial swelling or acute wheezing Medications/Allergies Home Medications Medication Instructions Recorded Confirmed Last Taken Type methadone 40 mg soluble tablet 40 mg PO DAILY 08/10/20 08/10/20 Unknown History hydrocodone 5 mg-acetaminophen 325 1 tab PO Q8H PRN Moderate Pain #5 08/13/20 Unknown Rx mg tablet tabs buspirone 7.5 mg tablet 7.5 mg PO BID #30 tabs 06/25/22 Unknown Rx Allergies Allergy/AdvReac Type Severity Reaction Status Date / Time No Known Allergies Allergy Verified 02/09/23 22:45 PFSH Acute PFSH: Medical History (Updated 02/10/23 @ 04:53 by Kaushal Haq MD) Abscess GERD (gastroesophageal reflux disease) Hepatitis C HIV negative test was done 11/19/2009 Heroin addiction IV drug abuse Methadone dependence Polysubstance abuse Surgical History History of incision and drainage multiple History of tonsillectomy Family History Mother CAD (coronary artery disease) Social History Smoking and tobacco status: current every day smoker Alcohol intake: never Substance/Drug Use: former Vitals/I&O/Wt Last Vital Signs Temp 99.4 F 02/09/23 22:45 Pulse 85 02/10/23 04:33 Resp 18 02/10/23 04:33 BP 160/86 02/10/23 04:33 Pulse Ox 98 02/10/23 04:33 O2 Del Method Room Air 02/10/23 04:00 02/09/23 02/09/23 02/10/23 14:59 22:59 06:59 Intake Total 2116.667 / 2116.667 Balance 2116.667 / 2116.667 Weight last 48 hrs Weight 91.626 kg Physical Exam Narrative: General: No acute distress, AO x3, unkept HEENT: PERRLA, pupils bilaterally equal and reactive Chest: Normal vesicular breath sounds, no added sounds, equal good air entry bilaterally CVS: S1-S2 regular, no murmurs, no tachycardia, no gallops, no rubs Abdomen: Soft, nontender, no organomegaly, bowel sounds present Neuro: No focal deficits, no facial deformity, AO x3, power 5/5 in all limbs Extremity: Multiple puncture wounds present on bilateral arms and legs, right lower limb erythematous, tender, swollen up to knee with few multiple open wounds with purulent discharge without fluctuation. Bilateral formal forearm showing open wounds with multiple scabs with wounds in different stages of healing Data 02/10/23 00:51 02/10/23 00:51 A&P Assessment and plan (1) Cellulitis: Most likely in setting of injection sites while polysubstance abuse. Check blood culture, MRSA swab, procalcitonin. High concerns for bacteremia given polysubstance abuse, multiple site of skin infection. Cannot rule out necrotizing fasciitis versus osteomyelitis. CT leg negative for osteomyelitis but concerning for subcutaneous emphysema which could be necrotizing fasciitis versus puncture site. Orthopedic surgery consulted from ER. Empirically start patient on IV vancomycin, meropenem. MRI leg to rule out osteomyelitis. ESR mildly elevated. Check CRP. CT bilateral arms to rule out osteomyelitis, CT facial bones to rule out dental abscess. Echocardiogram to rule out vegetation for infective endocarditis. Qualifiers: Site of cellulitis of extremity: upper extremity Qualified Code(s): L03.119 - Cellulitis of unspecified part of limb (2) Polysubstance abuse: Urine drug screen positive for amphetamines, benzos, marijuana, opiates. Patient gives history of abusing fentanyl and heroin recently. Check hepatitis panel, HIV. [facility] protocol. Continue home dose of methadone 40 mg oral daily. Dilaudid 0.2 mg every 4 hours as needed for breakthrough pain. (3) Abscess: (4) Heroin addiction: Plan Full code Regular diet. Famotidine for PUD prophylaxis Heparin 5000 every 12 hourly for DVT prophylaxis. Attestations Medical Necessity Statement*: Admission for more than 2 midnights for management of right leg cellulitis while abscess, necrotizing fasciitis, osteomyelitis is ruled out in a patient with history of polysubstance abuse Diagnoses Cellulitis L03.119 Site of cellulitis of extremity: upper extremity Polysubstance abuse F19.10 Abscess L02.91 Heroin addiction F11.20
[2023-02-10 05:06] LABS: Procalcitonin 0.27 ng/mL (0-0.5)
[2023-02-10 05:33] LABS: HIV 1 & 2 Antibody Non-Reactive (Non-Reactiv); HIV 1 & 2 Antigen Non-Reactive (Non-Reactiv)
[2023-02-10 05:34] LABS: Thyroid Stimulating Hormone 0.56 uIU/mL (0.27-4.20)
[2023-02-10 05:41] LABS: Hepatitis A Antibody IgM Non-Reactive (Nonreactive); Hepatitis B Core AB, Total Non-Reactive (Nonreactive); Hepatitis B Surface AB 3.5 (11.5-1000); Hepatitis B Surface Antigen Non-Reactive (Nonreactive); Hepatitis C Virus Antibody Reactive (Nonreactive)
[2023-02-10] MEDS: meropenem 1,000 MG in sodium chloride 0.9% (plus) 50 ML 100 MG IV ×3 (06:06→21:38)
[2023-02-10] MEDS: heparin 5,000 unit/mL INJ 1 mL 5000 UNIT SUBCUT ×2 (06:06→17:53)
--- NOTE | 2023-02-10 07:34 | P.CONIM_ITS ---
Providers/Reason For Consult Consulting Physician/Specialty*: Arvind Barba DO/orthopedic surgery Reason for Consult*: Right lower extremity cellulitis rule out abscess Requesting Physician: Dr. Ang Queen Attending Physician: Kaushal Haq MD History of Present Illness History of Present Illness Zenon Brewer is a 42 year old male with history of polysubstance abuse with heroin, amphetamines, fentanyl, multiple skin infections including open wounds on bilateral forearms presented to the ER with swelling and pain in the right leg. Patient was admitted overnight by the hospitalist orthopedics was consulted to be on board in case any surgical intervention required.? Patient gives history of recent drug abuse, as recently as yesterday.? Denies any fever.? States he has had multiple infections on bilateral forearms for which he gets treatment but leaves him with pain and gets worse again which makes him abuse drugs even more.? Denies any fever, nausea, vomiting.? Review of Systems General: Reports: 10 or more systems reviewed and unremarkable except in HPI and below Medications/Allergies Home Medications Medication Instructions Recorded Confirmed Last Taken Type methadone 40 mg soluble tablet 40 mg PO DAILY 08/10/20 08/10/20 Unknown History hydrocodone 5 mg-acetaminophen 325 1 tab PO Q8H PRN Moderate Pain #5 08/13/20 Unknown Rx mg tablet tabs buspirone 7.5 mg tablet 7.5 mg PO BID #30 tabs 06/25/22 Unknown Rx Allergies Allergy/AdvReac Type Severity Reaction Status Date / Time No Known Allergies Allergy Verified 02/09/23 22:45 Current Medications Generic Name Dose Route Start Last Admin Trade Name Freq PRN Reason Stop Dose Admin Heparin Sodium (Porcine) 5,000 unit 02/10/23 05:36 02/10/23 06:06 Heparin 5,000 Unit/Ml Inj 1 Ml SUBCUT 5,000 unit Q12H KARLO Administration Meropenem 1,000 mg/ Sodium 50 mls @ 100 mls/hr 02/10/23 03:47 02/10/23 06:48 Chloride IV Infused Q8H KARLO Infusion Protocol Sodium Chloride 1,000 mls @ 75 mls/hr 02/10/23 04:00 02/10/23 04:51 Sodium Chloride 0.9% IV 75 mls/hr .[id number] KARLO Administration PFSH Acute PFSH: Medical History (Updated 02/10/23 @ 04:53 by Kaushal Haq MD) Abscess GERD (gastroesophageal reflux disease) Hepatitis C HIV negative test was done 11/19/2009 Heroin addiction IV drug abuse Methadone dependence Polysubstance abuse Surgical History History of incision and drainage multiple History of tonsillectomy Family History Mother CAD (coronary artery disease) Social History Smoking and tobacco status: current every day smoker Alcohol intake: never Substance/Drug Use: former Vitals/I&O/Wt Last Vital Signs Temp 97.7 F 02/10/23 06:00 Pulse 64 02/10/23 06:28 Resp 17 02/10/23 06:00 BP 101/68 02/10/23 06:00 Pulse Ox 90 02/10/23 06:00 O2 Del Method Room Air 02/10/23 05:39 02/09/23 02/10/23 02/10/23 22:59 06:59 14:59 Intake Total 2300.000 / 2300.000 Balance 2300.000 / 2300.000 Weight last 48 hrs Weight 202 lb Physical Exam Narrative: Examination: Examination of the bilateral upper extremities demonstrates distal and anterior lateral aspects of the upper arm have dried eschar and excoriations he has mild tenderness to palpation of this area subtle periwound erythema but no expressible purulence or drainage noted. Patient is slightly lethargic for examination this morning but gross motor and sensory appears to be intact to the bilateral upper extremities given his age and therapy movements in response to sensation but unable to perform full motor and sensory exam to the bilateral upper extremity Examination of the right lower extremity: Patient has a punctate site of previous injection on the posterior lateral aspect of the calf this area has focal erythema no expressible drainage distally patient has thick firm velvety skin and erythema consistent with cellulitic skin changes. No subcutaneous bulla or subcutaneous emphysema noted on examination. He is able to gently wiggle his toes as well as plantarflex and dorsiflex ankle. The compartments are soft and compressible he has significant tenderness to palpation over the cellulitis. No proximal tracking cellulitis up the leg as this is roughly at the level of the midportion of the lower leg. No palpable fluctuance noted throughout the right lower extremity. Data 02/10/23 00:51 02/10/23 00:51 Other Labs: WBC count 9.6, hemoglobin 9.9, ESR 24, D-dimer 1.13, sodium 138, CRP 78.6 Review of his LRINEC score only has a +2 secondary to his lower hemoglobin. No clinical examination findings consistent with necrotizing fasciitis or drainable abscess Positive urine tox screen of opioids amphetamines benzodiazepines as well as marijuana Micro: Microbiology 02/10/23 04:56 Blood Culture - Preliminary Blood SPECIMEN COLLECTED 02/10/23 04:45 Blood Culture - Preliminary Blood SPECIMEN COLLECTED Other CT: My impression: CT/CT lower leg RT w con [id number] IMPRESSION: 1. ? Few small foci of emphysema in the skin of the lateral right lower leg with additional multiple foci of adjacent underlying subcutaneous emphysema. Subcutaneous emphysema may be due to an open wound, recommend clinical correlation to rule out possible necrotizing fasciitis. 2. ? Findings suspicious for cellulitis at the right lower leg, particularly around the right ankle. No abscess. 3. ? No evidence for osteomyelitis. MRI without and with contrast may be obtained if there is continuing clinical concern for osteomyelitis. If the patient has any contradiction for MRI, 3 phase bone scan in conjunction with white blood cell scan may be obtained. CT of the right lower extremity has findings throughout the right lower extremity consistent with cellulitis there is a small focal air pocket that does not appear to be within the fascia this is directly underneath the skin at the area of the open wound this is the cause of the air with an underneath the skin no findings on my interpretation of the CT scan as well as clinical examination consistent with any type of necrotizing fasciitis. CT/CT humerus LT w con [id number] IMPRESSION: Left arm cellulitis and ulceration.? No drainable fluid collection identified. ? CT/CT humerus RT w con [id number] IMPRESSION: Cellulitis, right arm.? No drainable fluid collection. A&P Assessment and plan (1) Cellulitis: Qualifiers: Site of cellulitis of extremity: upper extremity Qualified Code(s): L03.119 - Cellulitis of unspecified part of limb (2) Polysubstance abuse: (3) Heroin addiction: Plan Patient presents today as a polysubstance abuse and he has chronic bilateral ne crotic eschared wounds to the bilateral upper extremities at the lateral aspects of the humerus. CT scans of this reviewed and demonstrate no drainable abscess this appears to be chronic wounds in nature. More pertaining to his recent hospitalization of right lower extremity cellulitis findings are consistent with this on my examination he does not have any findings consistent with necrotizing fasciitis or rapidly progressing infection he does have findings consistent with lower extremity cellulitis I do not appreciate any palpable abscess or fluctuance on examination nor do I see any drainable abscess on CT scan at this point in time. He did inject on the posterior lateral aspect of his calf where there is small area of an open wound as well as air was noted on CT scan I do not feel as though this is any sign of necrotizing fasciitis and just secondary to a injection. Cellulitis is no proximal tracking. At this point time would recommend elevation as well as compressive wraps to help with the swelling and edema as well as serial IV antibiotics. At this point time I see no indication for orthopedic surgical intervention as there is no drainable abscess. Reviewing of patient's labs LRINEC score is only a 2 and confirmatory for low suspicion of necrotizing fasciitis. Would recommend serial monitoring as well as empiric IV antibiotics. Orthopedics will follow along to verify there is no consolidation from the cellulitis into an abscess that might need to be drained. Patient understands agrees with current plan. Questions answered. Contact Dr. Barba if you have any questions. Coding Level of Care Code Acute Code for [facility] Diagnoses Cellulitis L03.119 Site of cellulitis of extremity: upper extremity Polysubstance abuse F19.10 Heroin addiction F11.20 Time Spent (min) 45
--- NOTE | 2023-02-10 09:12 | PC.PHAR ---
PT UNABLE TO VERIFY MEDICATIONS. PREVIOUS MED LIST SHOWS BUSPIRONE 7.5 MG TABLET BID, HYDROCONDONE-ACET. 5-325 1 PO Q8H PRN MODERATE PAIN, METHADONE 40 MG TAB SOLUBLE DAILY. [facility] AND [facility] SHOW NO EXTERNAL.MEDICATIONS FILLED.
[2023-02-10] MEDS: methadone 10 mg Tablet 40 MG PO (10:59)
[2023-02-10] MEDS: multivitamin therapeutic Tablet 1 TAB PO (10:59)
[2023-02-10] MEDS: folic acid 1 mg Tablet PO (11:00)
[2023-02-10] MEDS: thiamine 100 mg Tablet PO (11:00)
[2023-02-10] MEDS: famotidine 20 mg Tablet PO ×2 (11:00→17:53)
--- NOTE | 2023-02-10 11:56 | CT_ITS ---
WS: [id number] CTA OF THE CHEST WITH PULMONARY EMBOLISM PROTOCOL TECHNIQUE: High-resolution contrast enhanced CTA of the chest with coronal and sagittal [facility] [place] with pulmonary embolism [place]. MIP images are also reviewed. CLINICAL INFORMATION: sob, iv drug user, elevated d dimer COMPARISON: None. DLP: 322.[address] scans at [facility] use at least one of these dose optimization techniques: automated e xposure control; mA and/or kV adjustment per patient size (includes targeted exams where dose is matc hed to clinical indication); or iterative reconstruction. FINDINGS: Proximal main pulmonary arteries are normal. Normal segmental and subsegmental pulmonary arteries. No evidence of pulmonary embolus. Subsegmental atelectasis in the lung bases. No acute pulmonary infilt rates. No focal pneumonia or pleural fluid. Small esophageal hiatal hernia. Enlarged LEFT axillary lymph nodes likely reactive from previously de scribed LEFT arm cellulitis CT/CT angio chest PE protcl [id number] IMPRESSION: 1. No evidence of pulmonary embolus. 2. Slight bibasilar atelectasis.
--- NOTE | 2023-02-10 11:56 | CT_ITS ---
WS: [id number] CT HEAD TECHNIQUE: Noncontrast CT of the head obtained from the skullbase to the vertex. CLINICAL INFORMATION: ams COMPARISON: 2017 DLP: 1079.[address] scans at [facility] use at least one of these dose optimization techniques: automated e xposure control; mA and/or kV adjustment per patient size (includes targeted exams where dose is matc hed to clinical indication); or iterative reconstruction. FINDINGS: No evidence of intracranial hemorrhage or mass effect. Ventricular system and basal cisterns are vasques nt. No extra-axial fluid collections. No evidence of mass or mass effect. Normal mari-white different iation. Paranasal sinuses and mastoid air cells are well aerated. .Normal visualized soft tissues. CT/CT head wo con* [id number] IMPRESSION: 1. No evidence of intracranial hemorrhage or mass effect. 2. No acute intracranial findings.
--- NOTE | 2023-02-10 11:57 | USR_ITS ---
PROCEDURE INFORMATION: Exam: US Soft Tissue Head and Neck, Soft Tissue Exam date and time: 02/10/2023 5:26 PM Age: 42 years old Clinical indication: Injury or trauma; Other: Broke needle off in neck while injecting drugs 2yrs ago; Puncture; Without foreign body; Additional info: Injecting drug in to neck TECHNIQUE: Imaging protocol: Real-time ultrasound scan of the head and neck with image documentation. Exam focused on the soft tissue in the region of clinical concern. COMPARISON: CT neck con [id number] 10/22/2020 8:16 AM FINDINGS: Lymph nodes: No lymphadenopathy is visualized. Soft tissues: Ultrasound of the soft tissues of the right lateral neck were performed. No obvious abnormality is seen in the area of interest. Regarding possible needle fragment, no linear echogenic shadowing focus is seen within the visualized soft tissues, particularly superficially. US/US soft tissue head neck [id number] IMPRESSION: No obvious abnormality regarding soft tissue foreign body density.
[2023-02-10] MEDS: vancomycin 1,500 MG/300 ML PIGGYBACK 200 MG IV (14:29)
--- NOTE | 2023-02-10 16:51 | PM.PN ---
Subjective Subjective: Patient was seen this morning, he tells me that he has been injecting drugs into his neck, injecting into both arms, injecting into his right and left thigh, reports feeling fatigue, reports malaise, chills, no fevers, he knows that he has hepatitis C, denies any headache, denies a history of hepatitis C, no neck pain, no neck stiffness, no headache, blurry vision, right leg is significantly swollen, below the level of the knee, venous ultrasound negative for DVT, he reports injecting drugs into his right calf Vitals/I&O/Wt Last Vital Signs Temp 97.2 F L 02/10/23 15:45 Pulse 60 02/10/23 15:45 Resp 18 02/10/23 15:45 BP 93/61 02/10/23 15:45 Pulse Ox 95 02/10/23 15:45 O2 Del Method Room Air 02/10/23 15:45 02/10/23 02/10/23 02/10/23 06:59 14:59 22:59 Intake Total 2300.000 / 2300.000 170 / 170 300 / 470 Balance 2300.000 / 2300.000 170 / 170 300 / 470 Weight last 48 hrs Weight 91.626 kg Physical Exam Const: COMMON NORMALS: no acute distress and patient oriented x3 Resp: COMMON NORMALS: normal respiratory effort, No retractions, No use of accessory muscles and clear to auscultation bilaterally AUSCULTATION: clear to auscultation bilaterally Cardio: COMMON NORMALS: regular rate, regular rhythm, S1 normal heart sound present and S2 normal heart sound present RATE: regular rate RHYTHM: regular rhythm HEART SOUNDS: S1 normal heart sound present, S2 normal heart sound present and Murmur heart sound present systolic GI: COMMON NORMALS: Normal to inspection, nondistended, normoactive bowel sounds present and non-tender Neuro: COMMON NORMALS: patient oriented x3 Psych: COMMON NORMALS: mental status grossly normal Skin: NARRATIVE SKIN EXAM: - Left arm, area of drug injection, scabbed over, measuring 3 x 3 cm -Right arm, area of drug injection, scabbed over, measuring 3 x 4 cm -Neck, under the xiphoid, area of a drug injection erythematous, no drainage -Right thigh, scattered macular rash, area of drug injection with scabbing, irregular borders, measuring 5 x 5 cm -Left thighs, scattered, rash, area of drug injection, irregular borders measuring 5 x 5 cm -Right lower extremity, below the level of the knee, significant pitting edema erythema extending from below the knee joint, to the ankle Data 02/10/23 00:51 02/10/23 00:51 Micro: Microbiology 02/10/23 04:56 Blood Culture - Preliminary Blood SPECIMEN COLLECTED 02/10/23 04:45 Blood Culture - Preliminary Blood SPECIMEN COLLECTED A&P Assessment and plan (1) Cellulitis: Right lower extremity cellulitis Most likely in setting of injection sites while polysubstance abuse. He does have other injection sites, bilateral arms, which have scabbed over, which do have surrounding erythema but no drainage, will monitor Check blood culture, MRSA swab, procalcitonin. High concerns for bacteremia given polysubstance abuse, multiple site of skin infection. CT leg negative for osteomyelitis but concerning for subcutaneous emphysema, Dr. Barba consulted, recommended medical management Empirically start patient on IV vancomycin, meropenem. MRI leg to rule out osteomyelitis. ESR mildly elevated. Check CRP. CT legs to rule out osteomyelitis, CT facial bones to rule out dental abscess. Echocardiogram to rule out vegetation for infective endocarditis. Qualifiers: Site of cellulitis of extremity: upper extremity Qualified Code(s): L03.119 - Cellulitis of unspecified part of limb (2) Polysubstance abuse: Urine drug screen positive for amphetamines, benzos, marijuana, opiates. Patient gives history of abusing fentanyl and heroin recently. HIV negative, hepatitis panel positive for hepatitis C [facility] protocol. Continue home dose of methadone 40 mg oral daily. Dilaudid 0.2 mg every 4 hours as needed for breakthrough pain. (3) Abscess: (4) Heroin addiction: Plan Full code Regular diet. Famotidine for PUD prophylaxis Heparin 5000 every 12 hourly for DVT prophylaxis. We will do CT angiogram of the chest given elevated D-dimer, venous ultrasound pending, cardiac echo, follow blood cultures, continue broad-spectrum antibiotic therapy, Attestations Medical Necessity Statement*: Patient requires hospitalization for IV drug abuse, concerns for bacteremia, with right lower extremity cellulitis Diagnoses Cellulitis L03.119 Site of cellulitis of extremity: upper extremity Polysubstance abuse F19.10 Abscess L02.91 Heroin addiction F11.20
[2023-02-11] VITALS (9 sets, daily range): BP systolic 94–115; BP diastolic 59–72; PULSE 56–68; RESP 15–20; TEMP 36.1–37.1; O2SAT 92–97
[2023-02-11] MEDS: acetaminophen 325 mg Tablet 650 MG PO (00:07)
[2023-02-11] MEDS: vancomycin 1,500 MG/300 ML PIGGYBACK 200 MG IV ×2 (03:48→16:14)
[2023-02-11] MEDS: heparin 5,000 unit/mL INJ 1 mL 5000 UNIT SUBCUT ×2 (05:25→18:13)
[2023-02-11] MEDS: meropenem 1,000 MG in sodium chloride 0.9% (plus) 50 ML 100 MG IV ×3 (05:27→21:08)
[2023-02-11] MEDS: methadone 10 mg Tablet 40 MG PO (10:15)
[2023-02-11] MEDS: multivitamin therapeutic Tablet 1 TAB PO (10:16)
[2023-02-11] MEDS: folic acid 1 mg Tablet PO (10:17)
[2023-02-11] MEDS: thiamine 100 mg Tablet PO (10:17)
[2023-02-11] MEDS: famotidine 20 mg Tablet PO ×2 (10:18→18:13)
[2023-02-11] MEDS: sodium chloride 0.9% 1,000 ML 75 ML IV ×2 (10:19→23:44)
[2023-02-11 11:52] LABS: Basophils % 1.1 %; Eosinophils # 0.2 10^3/uL (0.0-0.8); Eosinophils % 5.3 %; Hematocrit 30.8 % (42.0-52.0); Hemoglobin 9.6 g/dL (11.7-16.6); Lymphocytes # 1.4 10^3/uL (0.8-4.8); Lymphocytes % 37.9 %; Mean Corpuscular HGB Conc 31.2 g/dL (30.0-36.0); Mean Corpuscular Hemoglobin 29.4 pg (28.0-34.0); Mean Corpuscular Volume 94.2 fl (80-94); Mean Platelet Volume 10.3 fL (7.4-10.4); Monocytes # 0.5 10^3/uL (0.2-0.9); Monocytes % 13.5 %; Neutrophils # 1.58 10^3/uL (1.8-7.7); Neutrophils % 41.9 %; Nucleated Red Blood Cells % 0 %; Platelet Count 221 10^3/cmm (130-400); Red Blood Count 3.27 10^6/uL (4.1-5.3); Red Cell Distribution Width 13.3 % (12.1-15.1); White Blood Count 3.8 10^3/uL (4.0-10.0)
[2023-02-11 12:23] LABS: Estmated Average Glucose 105; Hemoglobin A1C 5.3 % (4.0-6.0)
[2023-02-11 12:38] LABS: Alanine Aminotransferase 59 U/L (0-41); Albumin Level 3.3 g/dL (3.5-5.2); Alkaline Phosphatase 97 U/L (40-130); Aspartate Amino Transferase 100 U/L (0-40); Blood Urea Nitrogen 10 mg/dL (6-20); Carbon Dioxide 29 mmol/L (22-29); Chloride 104 mmol/L (98-107); Globulin 2.6 g/dL (1.3-4.6); Glomerular Filtration Rate 92.5 mL/min (90-130); Glucose 101 mg/dL (65-115); Magnesium 1.9 mg/dL (1.7-2.3); Osmolality Calculated 291 mOsm/kg (285-295); Phosphorus 2.6 mg/dL (2.5-4.5); Sodium 141 mmol/L (136-145); Total Bilirubin 0.2 mg/dL (0.15-1.2); Total Protein 5.9 g/dL (6.6-8.7)
[2023-02-11 12:39] LABS: Chol HDL Ratio 3.18 mg/dL (1.0-5.00); Cholesterol 121 mg/dL (0-200); HDL Cholesterol 38 mg/dL (60-100); LDL Cholesterol Calculated 67 mg/dL (50-129); LDL HDL Ratio 1.76 RATIO (0.00-3.22); Triglycerides 80 mg/dL (0-150)
[2023-02-11 12:41] LABS: Procalcitonin 0.15 ng/mL (0-0.5)
[2023-02-11 12:49] LABS: Folate Level 12.3 ng/mL (4.5-32.2)
--- NOTE | 2023-02-11 14:06 | US_ITS ---
WS: [id number] RIGHT UPPER QUADRANT ULTRASOUND HISTORY: transaminitis COMPARISON: None available. Liver: 17.9 cm in length. Normal size liver and echogenicity. No bile duct dilatation or mass. Portal Vein: Normal hepatopetal flow with monophasic waveform. Gallbladder: Normally distended gallbladder with no stones or wall thickening. CBD: 0.7 cm Pancreas: Completely obscured by bowel gas. Right kidney: 10.3 cm in length. Normal size and echogenicity. No hydronephrosis or mass. Aorta and IVC: Unremarkable abdominal aorta and IVC. No ascites. US/US liver [id number] IMPRESSION: Normal gallbladder. Normal liver.
--- NOTE | 2023-02-11 14:07 | P.PN_ITS ---
Subjective Subjective: Patient was seen this morning, denies any fevers, chills, no nausea, no vomiting, no abdominal pain, no headache, no blurry vision, continues to have pain in the right lower extremity Vitals/I&O/Wt Last Vital Signs Temp 97.7 F 02/11/23 11:48 Pulse 61 02/11/23 11:48 Resp 18 02/11/23 11:48 BP 115/72 02/11/23 11:48 Pulse Ox 97 02/11/23 11:48 O2 Del Method Room Air 02/11/23 11:48 02/10/23 02/11/23 02/11/23 22:59 06:59 14:59 Intake Total 1949 590 / 2710 1480 / 1480 Balance 1949 590 / 2710 1480 / 1480 Weight last 48 hrs Weight 90.718 kg Weight 91.626 kg Physical Exam Const: COMMON NORMALS: no acute distress and patient oriented x3 Resp: COMMON NORMALS: normal respiratory effort, No retractions, No use of accessory muscles and clear to auscultation bilaterally AUSCULTATION: clear to auscultation bilaterally Cardio: COMMON NORMALS: regular rate, regular rhythm, S1 normal heart sound present and S2 normal heart sound present RATE: regular rate RHYTHM: regular rhythm HEART SOUNDS: S1 normal heart sound present and S2 normal heart sound present GI: COMMON NORMALS: Normal to inspection, nondistended, normoactive bowel sounds present and non-tender Extremity: NARRATIVE EXTREMITY EXAM: Right lower extremity swelling significantly improving erythema improving, from the level of just below the knee to just above the ankle Neuro: COMMON NORMALS: patient oriented x3 Psych: COMMON NORMALS: mental status grossly normal Data 02/11/23 11:28 02/11/23 11:28 Micro: Microbiology 02/10/23 04:56 Blood Culture - Preliminary Blood NEGATIVE TO DATE 02/10/23 04:45 Blood Culture - Preliminary Blood NEGATIVE TO DATE 02/10/23 10:16 MRSA Culture - Final Nose A&P Assessment and plan (1) Cellulitis: Right lower extremity cellulitis Most likely in setting of injection sites while polysubstance abuse. He does have other injection sites, bilateral arms, which have scabbed over, which do have surrounding erythema but no drainage, will monitor Check blood culture, MRSA swab, procalcitonin. High concerns for bacteremia given polysubstance abuse, multiple site of skin infection. CT leg negative for osteomyelitis but concerning for subcutaneous emphysema, Dr. Barba consulted, recommended medical management Continue with IV vancomycin, meropenem. Echocardiogram to rule out vegetation for infective endocarditis. Qualifiers: Site of cellulitis of extremity: upper extremity Qualified Code(s): L03.119 - Cellulitis of unspecified part of limb (2) Polysubstance abuse: Urine drug screen positive for amphetamines, benzos, marijuana, opiates. Patient gives history of abusing fentanyl and heroin recently. HIV negative, hepatitis panel positive for hepatitis C [facility] protocol. Continue home dose of methadone 40 mg oral daily. Dilaudid 0.2 mg every 4 hours as needed for breakthrough pain. (3) Abscess: (4) Heroin addiction: Plan Full code Regular diet. Famotidine for PUD prophylaxis Heparin 5000 every 12 hourly for DVT prophylaxis. Patient requires hospitalization for IV drug abuse, with cellulitis right lower extremity Attestations Medical Necessity Statement*: Patient requires hospitalization for cellulitis, right lower extremity Diagnoses Cellulitis L03.119 Site of cellulitis of extremity: upper extremity Polysubstance abuse F19.10 Abscess L02.91 Heroin addiction F11.20
[2023-02-11 16:07] LABS: Vancomycin Trough 13.6 ug/mL (10-15)
--- NOTE | 2023-02-11 16:15 | P.PN_ITS ---
Subjective Subjective: Patient seen and examined this morning. His pain is improving and his cellulitis is resolving due to IV antibiotics. Vitals/I&O/Wt Last Vital Signs Temp 97.7 F 02/12/23 04:00 Pulse 62 02/12/23 06:00 Resp 15 02/12/23 04:00 BP 113/75 02/12/23 04:00 Pulse Ox 97 02/12/23 04:00 O2 Del Method Room Air 02/12/23 04:00 02/11/23 02/11/23 02/12/23 14:59 22:59 06:59 Intake Total 1720 / 1720 880 / 2600 1350 / 3950 Output Total 1425 / 1425 Balance 1720 / 1720 880 / 2600 -75 / 2525 Weight last 48 hrs Weight 200 lb Physical Exam Narrative: Examination: Examination of the bilateral upper extremities demonstrates distal and anterior lateral aspects of the upper arm have dried eschar and excoriations he has mild tenderness to palpation of this area subtle periwound erythema but no expressible purulence or drainage noted. Patient is slightly lethargic for examination this morning but gross motor and sensory appears to be intact to the bilateral upper extremities given his age and therapy movements in response to sensation but unable to perform full motor and sensory exam to the bilateral upper extremity Examination of the right lower extremity: Patient has a punctate site of previous injection on the posterior lateral aspect of the calf this area has focal erythema resolving, still no expressible drainage no palpable fluctuance about the right lower extremity. Erythema and cellulitic skin changes have been resolving considerably with still mild cellulitis at the distal aspect of the ankle. No subcutaneous bulla or subcutaneous emphysema noted on examination. He is able to gently wiggle his toes as well as plantarflex and dorsiflex ankle. The compartments are soft and compressible, tenderness to palpation over cellulitis. No palpable fluctuance noted throughout the right lower extremity. Data 02/11/23 11:28 02/11/23 11:28 Micro: Microbiology 02/10/23 04:56 Blood Culture - Preliminary Blood NEGATIVE TO DATE 02/10/23 04:45 Blood Culture - Preliminary Blood NEGATIVE TO DATE A&P Assessment and plan (1) Cellulitis: Qualifiers: Site of cellulitis of extremity: upper extremity Qualified Code(s): L03.119 - Cellulitis of unspecified part of limb (2) Polysubstance abuse: (3) Heroin addiction: Plan Patient's been observed for 24 hours IV antibiotics his cellulitis continues to resolve and he is improving. At this point in time would recommend continued IV antibiotic treatment as he seems to be responding there does not appear to be any abscess accumulation or formation at this time. Recommend David wrap compression sleeve as he does have some pitting edema in the foot he understands importance of elevation and ice as needed. He can weight-bear as tolerated ri t lower extremity. At this point time we will follow him for 1 more day with compressive wrap as well as IV antibiotics he should be n.p.o. at midnight just in case an abscess accumulation forms. If the continues to improve with conservative treatment will follow along peripherally. Attestations Medical Necessity Statement*: Ongoing care right lower extremity cellulitis Coding Level of Care Code Acute Code for [facility] Diagnoses Cellulitis L03.119 Site of cellulitis of extremity: upper extremity Polysubstance abuse F19.10 Heroin addiction F11.20 Time Spent (min) 20
[2023-02-12] MEDS: vancomycin 1,500 MG/300 ML PIGGYBACK 200 MG IV ×2 (03:43→17:38)
[2023-02-12 04:00] VITALS: BP 113/75; PULSE 63; RESP 15; TEMP 36.5; O2SAT 97
[2023-02-12] MEDS: meropenem 1,000 MG in sodium chloride 0.9% (plus) 50 ML 100 MG IV ×2 (05:40→22:24)
[2023-02-12 06:00] VITALS: PULSE 62
--- NOTE | 2023-02-12 06:58 | PM.PN ---
Subjective Subjective: Patient's been n.p.o. since midnight he seen and examined this morning. Overall he continues to improve on IV antibiotics no abscess accumulations noted clinically. His CRP was trended and its downtrending. At this point time no apparent orthopedic surgical intervention required as there is no abscess accumulation or surgical and intervention required he can continue with IV antibiotics and recommend antibiotics at discharge will defer to primary pertaining to this. Patient can follow-up with his primary care provider upon discharge and does not need to follow-up with orthopedics Vitals/I&O/Wt Last Vital Signs Temp 97.7 F 02/12/23 04:00 Pulse 62 02/12/23 06:00 Resp 15 02/12/23 04:00 BP 113/75 02/12/23 04:00 Pulse Ox 97 02/12/23 04:00 O2 Del Method Room Air 02/12/23 04:00 02/11/23 02/11/23 02/12/23 14:59 22:59 06:59 Intake Total 1720 / 1720 880 / 2600 1350 / 3950 Output Total 1425 / 1425 Balance 1720 / 1720 880 / 2600 -75 / 2525 Weight last 48 hrs Weight 200 lb Physical Exam Narrative: Examination of the right lower extremity: Patient has a punctate site of previous injection on the posterior lateral aspect of the calf this area has focal erythema resolving, still no expressible drainage no palpable fluctuance about the right lower extremity. Erythema and cellulitic skin changes continue to resolve with minimal cellulitis at the distal aspect of the ankle. No subcutaneous bulla or subcutaneous emphysema noted on examination. He is able to gently wiggle his toes as well as plantarflex and dorsiflex ankle. The compartments are soft and compressible, tenderness to palpation over cellulitis. No palpable fluctuance noted throughout the right lower extremity. Data 02/11/23 11:28 02/11/23 11:28 Other Labs: CRP downtrend to 52.7 Micro: Microbiology 02/10/23 04:56 Blood Culture - Preliminary Blood NEGATIVE TO DATE 02/10/23 04:45 Blood Culture - Preliminary Blood NEGATIVE TO DATE A&P Assessment and plan (1) Cellulitis: Qualifiers: Site of cellulitis of extremity: upper extremity Qualified Code(s): L03.119 - Cellulitis of unspecified part of limb (2) Polysubstance abuse: Plan Patient's been n.p.o. since midnight he seen and examined this morning he has resolved majority of his cellulitis still has some pain associated recommend continued compressive wraps. He has no findings consistent with an abscess on clinical examination and once again no imaging findings on CT scan confirming any abscess accumulation he has no active drainage. At this point in time he is responded well to conservative IV antibiotic treatment. At this point time no further orthopedic surgical intervention required he can have a diet and orthopedic surgery team will sign off at this time and follow peripherally. If there is any questions pertaining to patient's care for free to contact the orthopedic office. Given no surgical intervention was required patient to follow-up with a primary care provider for management of cellulitis. Thank you for allow me to partake in the care of this patient. Attestations Medical Necessity Statement*: Right lower extremity cellulitis Coding Level of Care Code Acute Code for [facility] Diagnoses Cellulitis L03.119 Site of cellulitis of extremity: upper extremity Polysubstance abuse F19.10 Time Spent (min) 20
[2023-02-12 08:00] VITALS: PULSE 61; RESP 15; TEMP 36.6; O2SAT 96
[2023-02-12] MEDS: thiamine 100 mg Tablet PO (09:42)
[2023-02-12] MEDS: pantoprazole DR 40 mg Tablet PO ×2 (09:43→18:25)
[2023-02-12] MEDS: multivitamin therapeutic Tablet 1 TAB PO (09:43)
[2023-02-12] MEDS: methadone 10 mg Tablet 40 MG PO (09:43)
[2023-02-12] MEDS: folic acid 1 mg Tablet PO (09:43)
[2023-02-12] MEDS: sucralfate 1 gm Tablet PO ×2 (09:46→20:58)
[2023-02-12 10:52] LABS: Ferritin 245 ng/mL (30-400); Iron 27 ug/dL (59-158); Percent Saturation 12.8 % (20-50); Total Iron Binding Capacity 210 mcg/dl; Unsaturated Iron Binding 183 ug/dL (112-347)
[2023-02-12] MEDS: methadone 10 mg Tablet 100 MG PO (12:09)
[2023-02-12 12:20] LABS: C Reactive Protein 52.7 mg/L (0.0-4.9)
[2023-02-12 15:34] LABS: HEP C RNA Viral Load Quant <1.18 NOT DETECTED Log IU/mL (NOT DETECTED); HEP C RNA Viral Load Quant <15 NOT DETECTED IU/mL (NOT DETECTED)
[2023-02-12 16:00] VITALS: BP 119/85; PULSE 77; RESP 15; TEMP 36.8; O2SAT 94
--- NOTE | 2023-02-12 16:43 | P.PN_ITS ---
Subjective Subjective: Patient was seen this morning, afebrile overnight, currently has compressive wraps over right lower extremity he tells me that he uses 150 mg of methadone daily, we called and confirmed with methadone clinic, his dose was changed to 150 mg daily, Vitals/I&O/Wt Last Vital Signs Temp 98.2 F 02/12/23 16:00 Pulse 77 02/12/23 16:00 Resp 15 02/12/23 16:00 BP 119/85 02/12/23 16:00 Pulse Ox 94 02/12/23 16:00 O2 Del Method Room Air 02/12/23 16:00 02/12/23 02/12/23 02/12/23 06:59 14:59 22:59 Intake Total 1350 / 3950 793 / 793 Output Total 1425 / 1425 Balance -75 / 2525 793 / 793 Weight last 48 hrs Weight 90.718 kg Physical Exam Const: COMMON NORMALS: no acute distress and patient oriented x3 Resp: COMMON NORMALS: normal respiratory effort, No retractions, No use of accessory muscles and clear to auscultation bilaterally AUSCULTATION: clear to auscultation bilaterally Cardio: COMMON NORMALS: regular rate, regular rhythm, S1 normal heart sound present and S2 normal heart sound present RATE: regular rate RHYTHM: regular rhythm HEART SOUNDS: S1 normal heart sound present and S2 normal heart sound present GI: COMMON NORMALS: Normal to inspection, nondistended, normoactive bowel soun ds present and non-tender Extremity: NARRATIVE EXTREMITY EXAM: Right lower extremity wrapped and bandaged Neuro: COMMON NORMALS: patient oriented x3 Psych: COMMON NORMALS: mental status grossly normal Data 02/11/23 11:28 02/11/23 11:28 A&P Assessment and plan (1) Cellulitis: Right lower extremity cellulitis Most likely in setting of injection sites while polysubstance abuse. He does have other injection sites, bilateral arms, which have scabbed over, which do have surrounding erythema but no drainage, will monitor Check blood culture, MRSA swab, procalcitonin. High concerns for bacteremia given polysubstance abuse, multiple site of skin infection. So far blood cultures no growth CT leg negative for osteomyelitis but concerning for subcutaneous emphysema, Travon Barba consulted, recommended medical management Continue with IV vancomycin, meropenem. Echocardiogram to rule out vegetation for infective endocarditis. Qualifiers: Site of cellulitis of extremity: upper extremity Qualified Code(s): L03.119 - Cellulitis of unspecified part of limb (2) Polysubstance abuse: Urine drug screen positive for amphetamines, benzos, marijuana, opiates. Patient gives history of abusing fentanyl and heroin recently. HIV negative, hepatitis panel positive for hepatitis C [facility] protocol. Continue home dose of methadone 150 mg oral daily. Dilaudid 0.2 mg every 4 hours as needed for breakthrough pain. (3) Abscess: (4) Heroin addiction: Plan Full code Regular diet. Famotidine for PUD prophylaxis Heparin 5000 every 12 hourly for DVT prophylaxis. Patient requires hospitalization for IV drug abuse, with cellulitis right lower extremity Attestations Medical Necessity Statement*: Patient requires hospitalization for right lower extremity cellulitis Diagnoses Cellulitis L03.119 Site of cellulitis of extremity: upper extremity Polysubstance abuse F19.10 Abscess L02.91 Heroin addiction F11.20
[2023-02-12] MEDS: LORazepam 2 mg Tablet PO ×2 (18:25→23:43)
[2023-02-12] MEDS: heparin 5,000 unit/mL INJ 1 mL 5000 UNIT SUBCUT (18:27)
[2023-02-12 20:00] VITALS: BP 107/63; PULSE 63; RESP 15; TEMP 36.5; O2SAT 97
[2023-02-12 21:56] VITALS: PULSE 64
[2023-02-12] MEDS: acetaminophen 325 mg Tablet 650 MG PO (23:44)
[2023-02-13] VITALS: BP 110/76; PULSE 71; RESP 17; TEMP 36.3; O2SAT 93
[2023-02-13] MEDS: vancomycin 1,500 MG/300 ML PIGGYBACK 200 MG IV (02:56)
[2023-02-13 04:00] VITALS: BP 92/57; PULSE 53; RESP 17; TEMP 36.4; O2SAT 95
[2023-02-13] MEDS: meropenem 1,000 MG in sodium chloride 0.9% (plus) 50 ML 100 MG IV (04:55)
[2023-02-13] MEDS: heparin 5,000 unit/mL INJ 1 mL 5000 UNIT SUBCUT (05:25)
[2023-02-13 06:00] VITALS: PULSE 65
[2023-02-13 07:42] VITALS: BP 101/64; PULSE 56; RESP 16; TEMP 36.5; O2SAT 95
[2023-02-13] MEDS: methadone 10 mg Tablet 150 MG PO (08:15)
[2023-02-13] MEDS: multivitamin therapeutic Tablet 1 TAB PO ×2 (08:16→08:19)
[2023-02-13] MEDS: folic acid 1 mg Tablet PO (08:16)
[2023-02-13] MEDS: thiamine 100 mg Tablet PO (08:16)
[2023-02-13] MEDS: sucralfate 1 gm Tablet PO (08:16)
[2023-02-13] MEDS: pantoprazole DR 40 mg Tablet PO (08:16)
[2023-02-13 08:27] VITALS: O2SAT 95
--- NOTE | 2023-02-13 08:37 | PM.DCS ---
Discharge Providers Date of Admission: 02/10/23 03:50 Date of Discharge: February 13, 2023 Attending Provider at Admission: Kauhsal Haq MD Attending Provider at Discharge: Pih Wolfe MD Diagnoses at Discharge Discharge Diagnosis (1) Cellulitis: Status: Acute Qualifiers: Site of cellulitis of extremity: upper extremity Qualified Code(s): L03.119 - Cellulitis of unspecified part of limb (2) Polysubstance abuse: Status: Acute (3) Abscess: Status: Acute (4) Heroin addiction: Status: Acute Reason for Visit Reason for Visit: right leg pain Hospital Course Hospital Course Zenon Brewer is a 42 year old male with history of polysubstance abuse with heroin, amphetamines, fentanyl, multiple skin infections including open wounds on bilateral forearms presented to the ER with swelling and pain in the right leg accompanied by a caregiver.? Patient gives history of recent drug abuse, as recently as yesterday.? Denies any fever.? States he has had multiple infections on bilateral forearms for which he gets treatment but leaves him with pain and gets worse again which makes him abuse drugs even more.? Also complaining of pain in his mouth at an extracted tooth for last 3 days.? Denies any fever, nausea, vomiting.? Patient states he is aware that all his problems are because of drug abuse and wants to go to a rehab on discharge. We discussed that there is a high chance that patient has abscesses along with cellulitis of his lower limb which will possibly require I&D, high chances of bacteremia requiring prolonged antibiotics.? Also discussed that patient will most likely need multiple blood draws a day along with blood cultures and most likely he will be in hospital for a week for 10 days.? Patient is agreeable to stay through the course of treatment and do water what needed to get better. This is a 42-year-old male with a past medical history of IV drug abuse, who presents to [facility] for cellulitis of right lower extremity, patient was admitted to [facility], received broad-spectrum antibiotic therapy, orthopedic service was consulted for right lower extremity swelling site of injection site, they recommended medical management, no surgical invention required, CT of the leg was negative for osteomyelitis, received IV antibiotic therapy, blood cultures so far he no growth, he remained afebrile, patient declined blood work 48 hours before discharge, I can follow his white blood cell count as he refused further blood draws. But overall he clinically improved, discharged on 7 days of p.o. antibiotics, advised to abstain from drug use, follow-up with wound care for his upper extremity wounds. For his hepatitis C positivity, follow-up with infectious disease for treatment. Follow-up with [facility] for drug abuse Physical Exam Const: COMMON NORMALS: no acute distress and patient oriented x3 Resp: COMMON NORMALS: normal respiratory effort, No retractions, No use of accessory muscles and clear to auscultation bilaterally AUSCULTATION: clear to auscultation bilaterally Cardio: COMMON NORMALS: regular rate, regular rhythm, S1 normal heart sound present and S2 normal heart sound present RATE: regular rate RHYTHM: regular rhythm HEART SOUNDS: S1 normal heart sound present and S2 normal heart sound present GI: COMMON NORMALS: Normal to inspection, nondistended, normoactive bowel sounds present and non-tender Extremity: COMMON NORMALS: no pedal edema NARRATIVE EXTREMITY EXAM: Right lower extremity cellulitis significantly improved, no significant erythema, edema Bilateral upper extremity, bilateral arms areas of IV injection sites look clean and dry, scaled over, Bilateral hip injection sites, clean and dry, scaled over Neuro: COMMON NORMALS: patient oriented x3 Psych: COMMON NORMALS: mental status grossly normal Discharge Data Studies Completed and Pending Completed Studies During Hospitalization Category Date Time Status CT angio chest PE protcl [id number] Routine Cat Scan 02/10/23 11:[address] facial bones wo con* [id number] Stat Cat Scan 02/10/23 03:[address] head wo con* [id number] Routine Cat Scan 02/10/23 11:[address] humerus LT w con [id number] Stat Cat Scan 02/10/23 03:[address] humerus RT w con [id number] Stat Cat Scan 02/10/23 03:[address] lower leg RT w con [id number] Stat Cat Scan 02/09/23 23:57 Completed US liver [id number] Routine Ultrasound 02/11/23 14:06 Completed US soft tissue head neck [id number] Routine Ultrasound 02/10/23 11:57 Completed US venous duplex lower extremity RT [CV venous duplex Ultrasound 02/10/23 01:14 [place] [id number]] Stat Pending at discharge Category Date Time Status Blood Culture Stat Lab 02/09/23 23:54 Results Complete Blood Count w/Auto AM LABS Lab 02/13/23 04:00 Ordered Complete Blood Count w/Auto AM LABS Lab 02/14/23 04:00 Ordered Comprehensive Metabolic Panel AM LABS Lab 02/13/23 04:00 Ordered Comprehensive Metabolic Panel AM LABS Lab 02/14/23 04:00 Ordered Immunochemical Fecal OCB Routine Lab 02/12/23 09:00 Ordered Magnesium AM LABS Lab 02/13/23 04:00 Ordered Magnesium AM LABS Lab 02/14/23 04:00 Ordered Phosphorus AM LABS Lab 02/13/23 04:00 Ordered Phosphorus AM LABS Lab 02/14/23 04:00 Ordered CV. echo complete* [id number] Routine Ultrasound 02/10/23 04:50 Taken Radiology Impressions Lower Extremity CT 02/09/23 23:57 IMPRESSION: 1. Few small foci of emphysema in the skin of the lateral right lower leg with additional multiple foci of adjacent underlying subcutaneous emphysema. Subcutaneous emphysema may be due to an open wound, recommend clinical correlation to rule out possible necrotizing fasciitis. 2. Findings suspicious for cellulitis at the right lower leg, particularly around the right ankle. No abscess. 3. No evidence for osteomyelitis. MRI without and with contrast may be obtained if there is continuing clinical concern for osteomyelitis. If the patient has any contradiction for MRI, 3 phase bone scan in conjunction with white blood cell scan may be obtained. ADDENDUM: 02/10/23 0330 THIS REPORT CONTAINS FINDINGS THAT MAY BE CRITICAL TO PATIENT CARE. The findings were verbally communicated via telephone conference with REJI POOL at 3:23 AM CDT on 02/10/2023. The findings were acknowledged and understood. Venous Duplex 02/10/23 01:14 IMPRESSION: No evidence for deep venous thrombosis in the right lower extremity. Face CT 02/10/23 03:46 IMPRESSION: Notable poor dentition with periapical lucency surrounding the roots of several teeth. Please correlate clinically. No obvious drainable fluid collection although evaluation is limited on this noncontrast CT. Humerus CT 02/10/23 03:46 IMPRESSION: Cellulitis, right arm. No drainable fluid collection. Chest CTA 02/10/23 11:56 IMPRESSION: 1. No evidence of pulmonary embolus. 2. Slight bibasilar atelectasis. Head CT 02/10/23 11:56 IMPRESSION: 1. No evidence of intracranial hemorrhage or mass effect. 2. No acute intracranial findings. Head/Neck Ultrasound 02/10/23 11:57 IMPRESSION: No obvious abnormality regarding soft tissue foreign body density. Liver Ultrasound 02/11/23 14:06 IMPRESSION: Normal gallbladder. Normal liver. Laboratory Results WBC 3.8 10^3/uL (4.0-10.0) L 02/11/23 11:28 RBC 3.27 10^6/uL (4.1-5.3) L 02/11/23 11:28 Hgb 9.6 g/dL (11.7-16.6) L 02/11/23 11:28 Hct 30.8 % (42.0-52.0) L 02/11/23 11:28 MCV 94.2 fl (80-94) H 02/11/23 11:28 MCH 29.4 pg (28.0-34.0) 02/11/23 11:28 MCHC 31.2 g/dL (30.0-36.0) 02/11/23 11:28 RDW 13.3 % (12.1-15.1) 02/11/23 11:28 Plt Count 221 10^3/cmm (130-400) 02/11/23 11:28 MPV 10.3 fL (7.4-10.4) 02/11/23 11:28 Neut % (Auto) 41.9 % 02/11/23 11:28 Lymph % (Auto) 37.9 % 02/11/23 11:28 [place] % (Auto) 13.5 % 02/11/23 11:28 Eos % (Auto) 5.3 % 02/11/23 11:28 Baso % (Auto) 1.1 % 02/11/23 11:28 Neut # (Auto) 1.58 10^3/uL (1.8-7.7) L 02/11/23 11:28 Lymph # (Auto) 1.4 10^3/uL (0.8-4.8) 02/11/23 11:28 [place] # (Auto) 0.5 10^3/uL (0.2-0.9) 02/11/23 11:28 Eos # (Auto) 0.2 10^3/uL (0.0-0.8) 02/11/23 11:28 Baso # (Auto) 0.0 10^3/uL (0.0-0.1) 02/11/23 11:28 Nucleated RBC % (auto) 0 % 02/11/23 11:28 Nucleated RBCs # 0.0 /100WBC 02/11/23 11:28 ESR 24 mm/hr (0-10) H 02/10/23 00:51 D-Dimer 1.13 ug/mIFEU (0-0.59) H 02/10/23 00:51 Sodium 141 mmol/L (136-145) 02/11/23 11:28 Potassium 4.0 mmol/L (3.5-5.1) 02/11/23 11:28 Chloride 104 mmol/L (98-107) 02/11/23 11:28 Carbon Dioxide 29 mmol/L (22-29) 02/11/23 11:28 Anion Gap 12.0 (5-19) 02/11/23 11:28 BUN 10 mg/dL (6-20) 02/11/23 11:28 Creatinine 0.9 mg/dL (0.7-1.2) 02/11/23 11:28 GFR Calculation 92.5 mL/min (90-130) 02/11/23 11:28 Glucose 101 mg/dL (65-115) 02/11/23 11:28 Estimat Average Glucose 105 02/11/23 11:28 Hemoglobin A1c 5.3 % (4.0-6.0) 02/11/23 11:28 Calculated Osmolality 291 mOsm/kg (285-295) 02/11/23 11:28 Lactic Acid 0.4 mmol/L (0.5-2.2) L 02/10/23 00:51 Calcium 8.0 mg/dL (8.5-10.5) L 02/11/23 11:28 Phosphorus 2.6 mg/dL (2.5-4.5) 02/11/23 11:28 Magnesium 1.9 mg/dL (1.7-2.3) 02/11/23 11:28 Iron 27 ug/dL (59-158) L 02/11/23 11:28 TIBC 210 mcg/dl 02/11/23 11:28 % Saturation 12.8 % (20-50) L 02/11/23 11:28 Unsat Iron Binding 183 ug/dL (112-347) 02/11/23 11:28 Ferritin 245 ng/mL (30-400) 02/11/23 11:28 Total Bilirubin 0.2 mg/dL (0.15-1.2) 02/11/23 11:28 AST 100 U/L (0-40) H 02/11/23 11:28 ALT 59 U/L (0-41) H 02/11/23 11:28 Alkaline Phosphatase 97 U/L (40-130) 02/11/23 11:28 C-Reactive Protein 52.7 mg/L (0.0-4.9) H 02/11/23 11:28 Total Protein 5.9 g/dL (6.6-8.7) L 02/11/23 11:28 Albumin 3.3 g/dL (3.5-5.2) L 02/11/23 11:28 Globulin 2.6 g/dL (1.3-4.6) 02/11/23 11:28 Triglycerides 80 mg/dL (0-150) 02/11/23 11:28 Cholesterol 121 mg/dL (0-200) 02/11/23 11:28 LDL Cholesterol, Calc 67 mg/dL (50-129) 02/11/23 11:28 HDL Cholesterol 38 mg/dL (60-100) L 02/11/23 11:28 LDL/HDL Ratio 1.76 RATIO (0.00-3.22) 02/11/23 11:28 Cholesterol/HDL Ratio 3.18 mg/dL (1.0-5.00) 02/11/23 11:28 Vitamin B12 490 pg/mL (232-1245) 02/10/23 00:51 Folate 12.3 ng/mL (4.5-32.2) 02/11/23 11:28 Procalcitonin 0.15 ng/mL (0-0.5) 02/11/23 11:28 TSH 0.56 uIU/mL (0.27-4.20) 02/10/23 00:51 Urine Color Yellow (Yellow) 02/10/23 02:55 Urine Appearance Hazy (CLEAR) A 02/10/23 02:55 Urine pH 5 (5-7) 02/10/23 02:55 Ur Specific [place] 1.025 (1.005-1.030) 02/10/23 02:55 Urine Protein Trace (Negative) 02/10/23 02:55 Urine Glucose (UA) Norm (Normal) 02/10/23 02:55 Urine Ketones Negative (Negative) 02/10/23 02:55 Urine Blood Neg (Negative) 02/10/23 02:55 Urine Nitrate Negative (Negative) 02/10/23 02:55 Urine Bilirubin Neg (Negative) 02/10/23 02:55 Urine Urobilinogen Neg mg/dL (Negative) 02/10/23 02:55 Ur Leukocyte Esterase Negative (Negative) 02/10/23 02:55 Urine RBC None /hpf (0-2) 02/10/23 02:55 Urine WBC None /hpf (0-5) 02/10/23 02:55 Ur Squamous Epith Cells None /hpf (0-5) 02/10/23 02:55 Amorphous Sediment Not Reportable 02/10/23 02:55 Urine Bacteria None /hpf (NONE) 02/10/23 02:55 Urine Mucus 3+ /hpf 02/10/23 02:55 Vancomycin Trough 13.6 ug/mL (10-15) 02/11/23 14:54 Urine Opiates Screen Positive ng/mL (Negative) H 02/10/23 02:55 Ur Barbiturates Screen Negative ng/mL (Negative) 02/10/23 02:55 Ur Phencyclidine Scrn Negative ng/mL (Negative) 02/10/23 02:55 Ur Amphetamines Screen Positive ng/mL (Negative) H 02/10/23 02:55 U Benzodiazepines Scrn Positive ng/mL (Negative) H 02/10/23 02:55 Urine Cocaine Screen Negative ng/mL (Negative) 02/10/23 02:55 U Marijuana (THC) Screen Positive ng/mL (Negative) H 02/10/23 02:55 Hepatitis A IgM Ab Non-reactive (Nonreactive) 02/10/23 00:51 Hep Bs Antigen Non-reactive (Nonreactive) 02/10/23 00:51 Hep Bs Antibody 3.5 (11.5-1000) L 02/10/23 00:51 Hep B Core Total Ab Non-reactive (Nonreactive) 02/10/23 00:51 Hepatitis C Antibody Reactive (Nonreactive) H 02/10/23 00:51 HCV RNA (PCR) IUs/ml <1.18 not detected Log IU/mL (NOT DETECTED) 02/10/23 06:05 HCV RNA (PCR) IU log10 <15 not detected IU/mL (NOT DETECTED) 02/10/23 06:05 HIV 1&2 Ab & HIV 1 Ag Non-reactive (Non-Reactiv) 02/10/23 00:51 HIV 1&2 Antibody Non-reactive (Non-Reactiv) 02/10/23 00:51 Vitals Last Vital Signs Temp 97.7 F 02/13/23 07:42 Pulse 56 L 02/13/23 07:42 Resp 16 02/13/23 07:42 BP 101/64 02/13/23 07:42 Pulse Ox 95 02/13/23 08:27 O2 Del Method Room Air 02/13/23 08:27 Discharge Plan Discharge Patient Disposition: Home Condition: Stable Prescriptions: New amoxicillin-pot clavulanate 875-125 mg tablet 1 tab PO BID 7 Days Qty: 14 0RF doxycycline hyclate 100 mg tablet 100 mg PO BID 7 Days Qty: 14 0RF No Action Unable to Assess Discharge Orders: Discharge Order (Routine); Ordered 02/13/23 Ordered By: Phi Wolfe Referrals: Manuel Rosen DO [Physician] - Mandy Harman MD [Hospitalist] - 2 weeks (iv drug abuse) [facility], [Staff Physician] - 4-7 days Discharge Diet: Advance as tolerated Discharge Activity: Increase activity as tolerated Patient Instructions: Heroin Abuse, Opioid Safety Activity Restrictions/Additional Instructions: Orthopedic discharge instructions: Take antibiotics as prescribed May weight-bear as tolerated right lower extremity Recommend compressive David wrap to the right lower extremity for edema and swelling Elevation ice as needed. Patient to follow-up with primary care provider for follow-up on cellulitis, no orthopedic follow-up required. -Please follow-up with wound care for wounds -Please abstain from IV drug abuse -Please follow-up with infectious disease for hepatitis C Discharge Attestations Time Spent in Discharge Care*: greater than 30 min Status at Discharge: Cognitive status at discharge: cognitively intact, Behavioral status at discharge: cooperative, Quality Metrics Clinical Quality Measures [ No reported AMI, CVA or VTE this stay] Coding Level of Care Code 37268 Total time (in minutes) for Discharge: 50 Diagnoses Cellulitis L03.119 Site of cellulitis of extremity: upper extremity Polysubstance abuse F19.10 Abscess L02.91 Heroin addiction F11.20
--- NOTE | 2023-02-13 11:33 | PC.NURSE ---
patient verbalized understanding of discharge instructions, home medications, and follow up appointments. patient stated that his ride will be here around 12:30.
[2023-02-13 13:39] VITALS: O2SAT 95
== END 2023-02-13 13:40 | disposition home or self-care (01) | DRG 603 ==
LOC: ER 02-10 04:00 → MEDSURG 02-10 04:22
PROVIDERS: Physician Assistant; Student in an Organized Health Care Education/Training Program; Admitting Provider Student in an Organized Health Care Education/Training Program; Emergency Provider Emergency Medicine; Visit Provider Family Medicine
DX: L03.115 Cellulitis of right lower limb (principal); L03.114 Cellulitis of left upper limb; L03.113 Cellulitis of right upper limb; F15.10 Other stimulant abuse, uncomplicated; F16.10 Hallucinogen abuse, uncomplicated; F13.10 Sedative, hypnotic or anxiolytic abuse, uncomplicated; B19.20 Unspecified viral hepatitis C without hepatic coma; K21.9 Gastro-esophageal reflux disease without esophagitis; F17.200 Nicotine dependence, unspecified, uncomplicated; Z79.891 Long term (current) use of opiate analgesic
CPT/HCPCS: 36415; 70450; 70486; 71275; 73201; 73701; 76536; 76705; 80053; 80061; 80202; 80306; 81001; 82607; 82728; 82746; 83036; 83540; 83550; 83605; 83735; 84100; 84145; 84443; 85025; 85378; 85651; 86140; 86705; 86706; 86709; 86803; 87040; 87340; 87522; 87641; 87806; 93306; 93971; 94664; 96361; 96372; 96374; 99285; J1644; J2060; J2185; J2270; J3370; J3411; J7030; J7050; Q9967

== ENCOUNTER 2023-09-28 04:03 | Emergency (ER) | payer MEDICAID, SELFPAY ==
--- NOTE | 2023-09-28 04:30 | ED_ITS ---
HPI - Extremity Injury (Upper) General: Chief Complaint: General Medical Stated Complaint: L arm infection Time Seen by Provider: 09/28/23 04:04 Source: patient Mode of arrival: ambulatory Limitations: no limitations History of Present Illness: 42-year-old male with a long history of IV drug abuse. Patient's been admitted here multiple times for infections from his injection sites. He states he in jected recently and is left upper arm and now has an open wound with pain and redness. No known fevers she denies any drainage he denies any worsening improving factors. Associated symptoms: Denies neck pain Review of Systems Const: Denies: fever(s), chills, body aches or change in appetite ENMT: Denies: throat pain or dental pain Card: Denies: chest pain Resp: Denies: dyspnea GI: Denies: abdominal pain, nausea, vomiting or diarrhea Musc: Reports: extremity pain; Denies: neck pain or back pain Skin/Breast: Reports: erythema; Denies: rash Neuro: Denies: headache(s) PFSH ED PFSH: Medical History (Updated 09/28/23 @ 05:00 by Ang Queen MD) Polysubstance abuse GERD (gastroesophageal reflux disease) Hepatitis C HIV negative test was done 11/19/2009 Methadone dependence Heroin addiction IV drug abuse Abscess Surgical History History of incision and drainage multiple History of tonsillectomy Family History Mother CAD (coronary artery disease) Social History Smoking and tobacco/nicotine status: current every day tobacco/nicotine user Alcohol intake: never Substance/Drug Use: former Physical Exam Const: COMMON NORMALS: patient oriented x3 HENMT: COMMON NORMALS: normocephalic and atraumatic HEAD & SCALP: normocephalic and atraumatic Eye: COMMON NORMALS: Equal, round and reactive pupils present and EOMs intact bilaterally PUPIL: Yes Equal, round and reactive pupils present Neck/C-Spine: COMMON NORMALS: full ROM and supple Chest: COMMONS NORMALS: normal inspection of the chest and normal palpation of entire chest wall Resp: COMMON NORMALS: normal respiratory effort, No retractions, No use of accessory muscles and clear to auscultation bilaterally AUSCULTATION: clear t o auscultation bilaterally Cardio: COMMON NORMALS: regular rate, regular rhythm and No murmurs present (Cardio) RATE: regular rate RHYTHM: regular rhythm GI: COMMON NORMALS: Normal to inspection, nondistended, normoactive bowel sounds present, Soft to palpation, non-tender and no masses PALPATION: Yes Soft to palpation Extremity: COMMON NORMALS: full ROM OTHER: Large wound with erythema to left upper arm Neuro: COMMON NORMALS: patient oriented x3, moves all extremities and no focal motor deficits Psych: COMMON NORMALS: mental status grossly normal, Normal thought process present and cooperative THOUGHT PROCESS: Normal thought process present Course Vital Signs: Vital signs: Vital Signs Temperature 98.1 F 09/28/23 04:33 Pulse Rate 81 09/28/23 04:33 Respiratory Rate 16 09/28/23 04:33 Blood Pressure 115/78 09/28/23 04:33 Pulse Oximetry 96 09/28/23 04:33 MDM - Extremity Injury (Upper) Medical Decision Making Patient presents here with a large ulcer and cellulitis to left upper arm from drug abuse I try to convince him to stay for labs and likely admission he refused blood draw he states that he just wants antibiotics for home he has medical decision made capacity understands the risks any sign out AMA will prescribe Keflex and Bactrim given Rocephin here. Medical Records I reviewed the patient's medical records. All radiology interpretation(s) finalized by discharge Discharge Plan Discharge Patient Disposition: Left Against Medical Advice Clinical Impression: Cellulitis, Wound of left upper extremity Condition: Stable Prescriptions: New Bactrim DS 800-160 mg tablet 1 tab PO BID 10 Days Qty: 20 0RF cephalexin 500 mg capsule 500 mg PO TID 7 Days Qty: 21 0RF Discharge Diet: Advance as tolerated Discharge Activity: Resume usual activity Patient Instructions: Cellulitis (ED) Coding Level of Care Code ED Software Configuration Analyst for Ernestine Riggins
--- NOTE | 2023-09-28 04:32 | XRR_ITS ---
PROCEDURE INFORMATION: Exam: XR Left Humerus Exam date and time: 09/28/2023 4:35 AM Age: 42 years old Clinical indication: Patient HX: Large ulceration to lateral aspect of left upper arm. ; Additional info: Injury TECHNIQUE: Imaging protocol: Radiologic exam of the left humerus. Views: 2 or more views. COMPARISON: CT humerus LT w con [id number] 02/10/2023 5:20 AM FINDINGS: Bones/joints: No acute osseous findings. Soft tissues: Soft tissue irregularity about the lateral/posterolateral left upper arm, consistent with reported large ulceration. No underlying radiopaque retained foreign body. XR/[place] [id number] IMPRESSION: 1. Soft tissue irregularity about the lateral/posterolateral left upper arm, consistent with reported large ulceration. 2. No underlying radiopaque retained foreign body. 3. No acute osseous findings.
[2023-09-28 04:33] VITALS: BP 115/78; PULSE 81; RESP 16; TEMP 36.7; O2SAT 96
[2023-09-28] MEDS: cefTRIAXone 1,000 MG in water for injection-sterile 2.1 ML 2.10000000000000009 MG IM (05:16)
== END 2023-09-28 05:22 | disposition left against medical advice (07) ==
PROVIDERS: Emergency Provider Emergency Medicine
DX: L03.114 Cellulitis of left upper limb (principal); L98.499 Non-pressure chronic ulcer of skin of other sites with unspecified severity; Z53.29 Procedure and treatment not carried out because of patient's decision for other reasons; Z72.0 Tobacco use; Z86.19 Personal history of other infectious and parasitic diseases
CPT/HCPCS: 73060; 96372; 99284; J0696

== ENCOUNTER 2024-05-30 08:42 | Emergency (ER) | payer SELFPAY ==
[2024-05-30 08:53] VITALS: BP 116/77; PULSE 76; RESP 16; TEMP 36.6; O2SAT 99; BMI 23.7
--- NOTE | 2024-05-30 09:02 | XRR_ITS ---
PROCEDURE INFORMATION: Exam: XR Left Knee Exam date and time: 05/30/2024 9:16 AM Age: 43 years old Clinical indication: Pain; Knee; Left TECHNIQUE: Imaging protocol: Radiologic exam of the left knee. Views: 3 views. COMPARISON: No relevant prior studies available. FINDINGS: Bones/joints: Normal. No evidence of fracture or dislocation Soft tissues: Normal. XR/XR knee LT 3V* [id number] IMPRESSION: No acute findings.
--- NOTE | 2024-05-30 09:52 | USCV_ITS ---
DaniellaZenon ferro Age: 43 Gender: M : 1980 Exam Date: 05/30/2024 10:44 Ordering Phys: Justa [place] Technologist: Exam Location: [facility] [place]ication: lt leg pain and swelling PROCEDURES: Venous duplex imaging was performed in only the left lower extremity. The following venous structures were evaluated: common femoral vein, profunda vein, proximal portion of the greater saphenous vein, superficial femoral vein, and the popliteal vein. In addition, the posterior tibial and peroneal trunk were evaluated. FINDINGS: Normal 2-D Doppler and augmentation and compressibility throughout the lower extremity venous structures. Additional imaging through the proximal calf veins also reveals no thrombus. Limited evaluation of the greater saphenous vein is patent with no thrombus. CONCLUSIONS No DVT left lower extremity. Dr. Deisy Barger DO (Electronically Signed) Final Date: 30 May 2024 11:33 S
--- NOTE | 2024-05-30 09:52 | W.ED.EXTPRO ---
HPI - Extremity Problem General: Chief complaint: Extremity Injury, Lower Stated complaint: Left Leg pain Time Seen by Provider: 05/30/24 08:43 Source: patient Mode of arrival: ambulatory Limitations: no limitations History of Present Illness: Patient is a 43-year-old male presents to ED today with a complaint of pain to the medial aspect of his left knee over the past several days. No known injury or trauma. He has not noticed any redness to the area. Longstanding history of IV drug use and extremity infections related to this however the patient has proudly been sober for the last 6 months. Vitals are stable upon arrival. No calf pain/swelling. MD Complaint: joint pain Onset (ago): day(s) Pain Consistency: constant Location: left and knee Radiation: none Relieving factors: nothing Exacerbating factors: palpation Associated symptoms: Reports no associated symptoms; Deny chest pain, fever(s) or rash Related Data Home Medications Medication Instructions Recorded Confirmed methadone 10 mg tablet 150 mg PO DAILY 05/30/24 05/30/24 Allergies Allergy/AdvReac Type Severity Reaction Status Date / Time No Known Allergies Allergy Verified 02/09/23 22:45 Review of Systems Const: Denies: fever(s), chills, body aches, fatigue or malaise Card: Denies: chest pain Resp: Denies: dyspnea Musc: Reports: joint pain and joint swelling; Denies: neck pain, back pain, extremity pain, extremity swelling, joint redness or joint warmth Skin/Breast: Denies: rash Neuro: Denies: numbness in extremities, weakness in extremities, sensory changes or difficulty walking [facility] ED PFSH: Medical History Polysubstance abuse GERD (gastroesophageal reflux disease) Hepatitis C HIV negative test was done 11/19/2009 Methadone dependence Heroin addiction IV drug abuse Abscess Surgical History History of incision and drainage multiple History of tonsillectomy Family History Mother CAD (coronary artery disease) Social History Smoking and tobacco/nicotine status: current every day tobacco/nicotine user Alcohol intake: never Substance/Drug Use: former Physical Exam Const: COMMON NORMALS: no acute distress, patient oriented x3, no limitations, alert and well nourished GENERAL APPEARANCE: cooperative Resp: COMMON NORMALS: normal respiratory effort and clear to auscultation bilaterally AUSCULTATION: clear to auscultation bilaterally Cardio: COMMON NORMALS: regular rate and regular rhythm RATE: regular rate RHYTHM: regular rhythm Back/Pelvis: COMMON NORMALS: thoracic and lumbar spine normal to inspection, no thoracic nor lumbar tenderness, thoraco-lumbar ROM normal and straight leg raise negative bilaterally Extremity: COMMON NORMALS: capillary refill normal, no clubbing, cyanosis or edema, no calf tenderness and no pedal edema GENERAL: Yes normal exam except as noted LEFT LOWER EXTREMITY: Yes knee joint Left knee: Yes palpation (TTP medial knee; no palpable cords appreciated), Yes ROM (normal but painful medially with full extension/flexion), Yes neurovascular exam (normal) and Yes other (no overlying skin changes) Neuro: COMMON NORMALS: patient oriented x3, moves all extremities, no focal motor deficits and no sensory deficits noted SENSORIUM/ORIENTATION: Yes alert Course Vital Signs: Vital signs: Vital Signs Temperature 97.8 F 05/30/24 08:53 Pulse Rate 61 05/30/24 11:11 Respiratory Rate 17 05/30/24 11:11 Blood Pressure 105/69 05/30/24 11:11 Pulse Oximetry 95 05/30/24 11:11 Oxygen Delivery Me thod Room Air 05/30/24 11:11 MDM - Extremity (Nontraumatic) Medical Decision Making Patient has no redness, warmth, or overlying skin changes. No recent IV drug use. He has no pain with micro movements of the knee and no concern for septic knee joint at this time. Vital signs are stable. XR is unremarkable. Ultrasound negative for DVT. Patient will be instructed for conservative therapies at home. Follow-up with primary care in 1 to 2 weeks. Return to ED precautions given. Medical Records I reviewed the patient's medical records. Lab Data Radiology Impressions Knee X-Ray 05/30/24 09:02 IMPRESSION: No acute findings. All radiology interpretation(s) finalized by discharge Discharge Plan Discharge Patient Disposition: Home Clinical Impression: Knee pain, left Qualifiers: Chronicity: acute Qualified Code(s): M25.562 - Pain in left knee Condition: Stable Prescriptions: No Action methadone 10 mg Tablet 150 mg PO DAILY Discharge Orders: Discharge ED (Routine); Ordered 05/30/24 Ordered By: Justa Cleveland Activity Restrictions/Additional Instructions: As we discussed, you may ice and elevate the extremity is much as possible to help with discomfort. You may use the David wrap and crutches. You may use [id number] Tylenol and/or ibuprofen. Please follow-up with primary care in 1 to 2 weeks if symptoms do not seem to improve. As we discussed, you need to return to the emergency department for redness, swelling, fevers, severe pain with range of motion of the knee joint, or any other concerns you may have. I hope you begin to feel better soon. Coding Level of Care Code ED Customer Success Intern for Ernestine Riggins
--- NOTE | 2024-05-30 10:34 | PC.PHAR ---
patient gets a daily dose of methadone 150 at the provider office, called [facility] to verify as it is a high dose
[2024-05-30 11:11] VITALS: BP 105/69; PULSE 61; RESP 17; O2SAT 95
[2024-05-30 12:12] VITALS: BP 105/69; PULSE 65; O2SAT 98
--- NOTE | 2024-06-03 02:50 | DCPLANNER ---
Message sent to clinics to establish PCP.
== END 2024-05-30 12:13 | disposition home or self-care (01) ==
PROVIDERS: Emergency Provider Physician Assistant
DX: M25.562 Pain in left knee (principal); Z72.0 Tobacco use
CPT/HCPCS: 73562; 93971; 99284; E0114

== ENCOUNTER 2024-11-04 17:12 | Emergency (ER) | payer BC, MEDICAID, SELFPAY ==
[2024-11-04 17:20] VITALS: BP 126/91; PULSE 93; RESP 18; TEMP 36.5; O2SAT 97
--- NOTE | 2024-11-04 17:40 | ED_ITS ---
HPI - Abdominal Pain 2 General: Chief Complaint: Abdominal Pain Stated Complaint: n/v/abdomin pain Time Seen by Provider: 11/04/24 17:38 History of Present Illness: 43-year-old man with a history of IV frank g use who is currently on methadone therapy who presents to the emergency room with intermittent epigastric pain with nausea and vomiting. He says this started for 5 days ago. He says he vomits almost hourly. He has had some constipation. No diarrhea. He also is complaining of some dizziness and lightheadedness. He says he feels foggy. No focal motor deficits. He denies any drug use other than marijuana at this time. Related Data Home Medications ?Medication ?Instructions ?Recorded ?Confirmed methadone 10 mg tablet 150 mg PO DAILY 05/30/2406/12 Allergies Allergy/AdvReac Type Severity Reaction Status Date / Time No Known Allergies Allergy Verified 11/04/24 17:26 Review of Systems 2 Narrative: Constitutional symptoms: Negative except as documented in HPI. Skin symptoms: Negative except as documented in HPI. Eye symptoms: Negative except as documented in HPI. ENMT symptoms: Negative except as documented in HPI. Respiratory symptoms: Negative except as documented in HPI. Cardiovascular symptoms: Negative except as documented in HPI. Gastrointestinal symptoms: Negative except as documented in HPI. Genitourinary symptoms: Negative except as documented in HPI. Musculoskeletal symptoms: Negative except as documented in HPI. Neurologic symptoms: Negative except as documented in HPI. Psychiatric symptoms: Negative except as documented in HPI. Endocrine symptoms: Negative except as documented in HPI. PFSH ED 2 PFSH: Medical History Polysubstance abuse GERD (gastroesophageal reflux disease) Hepatitis C HIV negative test was done 11/19/2009 Methadone dependence Heroin addiction IV drug abuse Abscess Surgical History History of incision and drainage multiple History of tonsillectomy Family History Mother CAD (coronary artery disease) Social History Smoking and tobacco/nicotine status: current every day tobacco/nicotine user Alcohol intake: never Substance/Drug Use: former Physical Exam 2 Narrative: EXAM NARRATIVE: General: Alert, no acute distress. Skin: Warm, dry. Head: Normocephalic, atraumatic. Neck: Supple, trachea midline. Eye: Extraocular movements are intact. Ears, nose, mouth and throat: Poor dentition. Tacky oral mucosa. Cardiovascular: Regular, Normal peripheral perfusion. Respiratory: Lungs are clear to auscultation, respirations are non-labored, breath sounds are equal, Symmetrical chest wall expansion. Gastrointestinal: Soft, some epigastric and right upper quadrant tenderness, Non distended Musculoskeletal: Normal ROM, no deformity. Neurological: Alert and oriented, No focal neurological deficit observed. Psychiatric: Cooperative, appropriate mood & affect. Course 2 Vital Signs: Vital signs: Vital Signs Temperature 97.7 F 11/04/24 17:20 Pulse Rate 86 11/04/24 20:23 Respiratory Rate 16 11/04/24 20:23 Blood Pressure 123/78 11/04/24 20:23 Pulse Oximetry 98 11/04/24 20:23 Oxygen Delivery Me thod Room Air 11/04/24 20:23 MDM - Abdominal Pain Medical Decision Making Medical decision making: Differential diagnosis for this patient with nausea and vomiting including but not limited to and based on the above HPI, review of systems and physical exam: Urinary tract infection. Appendicitis. Cholecystitis. Colitis. small bowel obstruction. crohn's flare. pancreatitis. gastritis. peptic ulcer. cyclic vomiting. Viral illness. Influenza. COVID. Orders placed to evaluate differential diagnosis based on the above differential, HPI and physical exam Lab Review: Laboratory results were reviewed and interpreted by myself the emergency room physician. No leukocytosis. No anemia. Mild renal insufficiency. Drug screen positive for marijuana. AST and ALT are 626 and 746 respectively. GGT is 423. Alk phos is 422. I reviewed the patient's medical record. CT of the abdomen pelvis with contrast: Mild to moderate gallbladder wall thickening possibly due to cholecystitis. Gallbladder is not overly dilated. Recommend HIDA or MRCP. This was reviewed and interpreted by myself the emergency room physician. I also reviewed the radiology report. Reexamination: Patient remained stable. No increased work of breathing. No altered mental status. No focal motor deficits. Currently abdominal pain has ceased. Consultation: I spoke with gastroenterology at [facility] in [place]. He feels that patient story does warrant further evaluation and possible MRCP and possible general surgery consultation as well if this is a cholecystitis. Consultation: I spoke with Dr. Hutchins the hospitalist at [facility]. She accepts the patient for admission. Assessment and plan: Transaminitis Cholecystitis Dehydration Chronic pain syndrome Methadone therapy ?Normal saline bolus. IV Zofran. -I discussed the patient with the accepting physician on-call. - Discussed findings and plan with patient. Answered any questions. - All laboratory values were reviewed and interpreted personally by myself, the ER physician - All imaging was reviewed and interpreted personally by myself, the ER physician. - Evaluation and treatment of this problem were appropriate in the emergency setting Lab Data 11/04/24 18:53 11/04/24 18:53 Labs/Radiology: Radiology Impressions Abdomen/Pelvis CT 11/04/24 19:29 IMPRESSION: 1. [id number] gallbladder wall thickening possibly due to cholecystitis although the gallbladder is not otherwise dilated. Other differential considerations including underlying liver disease or systemic volume overload. HIDA scan may be helpful for further evaluation if clinically warranted. 2. Otherwise no acute abnormality in the abdomen or pelvis. 3. Mild fatty involution of the pancreas without obvious inflammatory change . Other incidental findings detailed above . ADDENDUM: 11/04/242020 COMMENT: THIS REPORT CONTAINS FINDINGS THAT MAY BE CRITICAL TO PATIENT CARE. The exam findings were verbally communicated by me to MARTA Marina via telephone conference at 8:15 PM CDT on 11/04/2024. The findings were acknowledged and understood. The provider interposed elevated liver enzymes and bilirubin which may suggest underlying liver disease as the etiology for the thickened gallbladder. Clinical correlation recommended . Mild thickening around the bile ducts of the nettie hepatis may be present without bile duct dilatation. If there is persistent suspicion for an acute gallbladder or biliary tract pathology then further evaluation MRCP/HIDA scan may be warranted. Laboratory Results WBC 3.81 10^3/uL (3.29-11.43) 11/04/24 18:53 RBC 4.47 10^6/uL (3.85-5.65) 11/04/24 18:53 Hgb 13.40 g/dL (11.27-16.99) 11/04/24 18:53 Hct 39.0 % (37-53) 11/04/24 18:53 MCV 87.2 fl (82-101) 11/04/24 18:53 MCH 30.0 pg (27-33) 11/04/24 18:53 MCHC 34.4 g/dL (30-55) 11/04/24 18:53 RDW 13.2 % (12.1-15.1) 11/04/24 18:53 Plt Count 129 10^3/cmm (157-399) L 11/04/24 18:53 MPV 10.3 fL (7.4-10.4) 11/04/24 18:53 Neut % (Auto) 43.5 % 11/04/24 18:53 Lymph % (Auto) 37.5 % 11/04/24 18:53 [place] % (Auto) 11.3 % 11/04/24 18:53 Eos % (Auto) 5.8 % 11/04/24 18:53 Baso % (Auto) 1.6 % 11/04/24 18:53 Neut # (Auto) 1.66 10^3/uL (1.8-7.7) L 11/04/24 18:53 Lymph # (Auto) 1.4 10^3/uL (0.8-4.8) 11/04/24 18:53 [place] # (Auto) 0.4 10^3/uL (0.2-0.9) 11/04/24 18:53 Eos # (Auto) 0.2 10^3/uL (0.0-0.8) 11/04/24 18:53 Baso # (Auto) 0.1 10^3/uL (0.0-0.1) 11/04/24 18:53 Nucleated RBC % (auto) 0 % 11/04/24 18:53 Nucleated RBCs # 0.0 /100WBC 11/04/24 18:53 Sodium 134 mmol/L (136-145) L 11/04/24 18:53 Potassium 3.7 mmol/L (3.5-5.1) 11/04/24 18:53 Chloride 96 mmol/L (98-107) L 11/04/24 18:53 Carbon Dioxide 26 mmol/L (22-29) 11/04/24 18:53 Anion Gap 15.7 (5-19) 11/04/24 18:53 BUN 14 mg/dL (6-20) 11/04/24 18:53 Creatinine 1.2 mg/dL (0.7-1.2) 11/04/24 18:53 GFR Calculation 66.1 mL/min (90-130) L 11/04/24 18:53 Glucose 117 mg/dL (65-115) H 11/04/24 18:53 Calculated Osmolality 280 mOsm/kg (285-295) L 11/04/24 18:53 Lactic Acid 1.5 mmol/L (0.5-2.2) 11/04/24 18:53 Calcium 8.8 mg/dL (8.5-10.5) 11/04/24 18:53 Total Bilirubin 3.8 mg/dL (0.15-1.2) H 11/04/24 18:53 GGT 423 U/L (8-61) H 11/04/24 18:56 AST 626 U/L (0-40) H 11/04/24 18:53 ALT 746 U/L (0-41) H 11/04/24 18:53 Alkaline Phosphatase 422 U/L (40-130) H 11/04/24 18:53 Total Protein 7.9 g/dL (6.6-8.7) 11/04/24 18:53 Albumin 4.0 g/dL (3.5-5.2) 11/04/24 18:53 Globulin 3.9 g/dL (1.3-4.6) 11/04/24 18:53 Lipase 8 U/L (13-60) L 11/04/24 18:53 Urine Color [place] (Yellow) A 11/04/24 17:43 Urine Appearance Cloudy (CLEAR) A 11/04/24 17:43 Urine pH 5.5 (5-7) 11/04/24 17:43 Ur Specific [place] 1.035 (1.005-1.030) H 11/04/24 17:43 Urine Protein 1+ (Negative) A 11/04/24 17:43 Urine Glucose (UA) Negative (Normal) 11/04/24 17:43 Urine Ketones Negative (Negative) 11/04/24 17:43 Urine Blood Negative (Negative) 11/04/24 17:43 Urine Nitrate Positive (Negative) A 11/04/24 17:43 Urine Bilirubin 3+ (Negative) H 11/04/24 17:43 Urine Urobilinogen 2.0 mg/dL (Negative) H 11/04/24 17:43 Ur Leukocyte Esterase 1+ (Negative) A 11/04/24 17:43 Urine RBC 3-5 /hpf (0-2) 11/04/24 17:43 Urine WBC 0-5 /hpf (0-5) 11/04/24 17:43 Ur Squamous Epith Cells 11-20 /hpf (0-5) H 11/04/24 17:43 Amorphous Sediment Not Reportable 11/04/24 17:43 Urine Bacteria None seen /hpf (NONE) 11/04/24 17:43 Hyaline Casts 14.87 /lpf 11/04/24 17:43 Urine Mucus 2+ /hpf 11/04/24 17:43 Urine Opiates Screen Negative ng/mL (Negative) 11/04/24 17:43 Ur Barbiturates Screen Negative ng/mL (Negative) 11/04/24 17:43 Ur Phencyclidine Scrn Negative ng/mL (Negative) 11/04/24 17:43 Ur Amphetamines Screen Negative ng/mL (Negative) 11/04/24 17:43 U Benzodiazepines Scrn Negative ng/mL (Negative) 11/04/24 17:43 Urine Cocaine Screen Negative ng/mL (Negative) 11/04/24 17:43 U Marijuana (THC) Screen Positive ng/mL (Negative) H 11/04/24 17:43 All radiology interpretation(s) finalized by discharge Discharge Plan Discharge Patient Disposition: Xfer Short-Term Hosp Clinical Impression: Acute cholecystitis, Transaminitis, Dehydration Condition: Stable Print Language: [place]se Coding Level of Care Code ED Bandage Winding Machine Operator for Ernestine Riggins
[2024-11-04 18:14] LABS: Bilirubin Urine 3+ (Negative); Blood Urine Negative (Negative); Glucose Urine UA Negative (Normal); Ketones Urine Negative (Negative); Leukocyte Esterase Urine 1+ (Negative); Nitrate Urine Positive (Negative); Protein Urine 1+ (Negative); Urine Appearance Cloudy (CLEAR); pH Urine 5.5 (5-7)
[2024-11-04 18:15] LABS: Specific Gravity, Urine 1.035 (1.005-1.030); Urine Color Orange (Yellow)
[2024-11-04 18:17] LABS: Bacteria Urine None Seen /hpf; Hyaline Casts Urine 14.87 /lpf; Universal Test for UA Present (0); WBC Urine 0-5 /hpf (0-5)
[2024-11-04 18:21] LABS: Amphetamines Screen Urine Negative (Negative); Barbiturates Screen Urine Negative (Negative); Benzodiazepines Screen Urine Negative (Negative); Cocaine Screen Urine Negative (Negative); Opiate Screen Urine Negative (Negative); PCP Screen Urine Negative (Negative); THC Screen Urine Positive (Negative)
[2024-11-04 18:25] LABS: Add Urine Culture? No; Mucus Urine 2+ /hpf
[2024-11-04 18:32] VITALS: PULSE 78; O2SAT 94
[2024-11-04 18:58] LABS: Basophils # 0.1 10^3/uL (0.0-0.1); Basophils % 1.6 %; Eosinophils # 0.2 10^3/uL (0.0-0.8); Eosinophils % 5.8 %; Lymphocytes # 1.4 10^3/uL (0.8-4.8); Lymphocytes % 37.5 %; Mean Corpuscular HGB Conc 34.4 g/dL (30-55); Mean Corpuscular Volume 87.2 fl (82-101); Mean Platelet Volume 10.3 fL (7.4-10.4); Monocytes # 0.4 10^3/uL (0.2-0.9); Monocytes % 11.3 %; Neutrophils # 1.66 10^3/uL (1.8-7.7); Neutrophils % 43.5 %; Nucleated Red Blood Cells % 0 %; Platelet Count 129 10^3/cmm (157-399); Red Blood Count 4.47 10^6/uL (3.85-5.65); Red Cell Distribution Width 13.2 % (12.1-15.1); White Blood Count 3.81 10^3/uL (3.29-11.43)
[2024-11-04] MEDS: ondansetron 2 mg/ML SDV 2 mL 8 MG IVP (19:12)
[2024-11-04 19:15] LABS: Lactic Sepsis W/Reflex 1.5 mmol/L (0.5-2.2)
[2024-11-04] MEDS: sodium chloride 0.9% 1,000 ML 999 ML IV (19:17)
[2024-11-04 19:19] VITALS: BP 138/77; PULSE 90; RESP 16
[2024-11-04 19:23] LABS: Alkaline Phosphatase 422 U/L (40-130); Anion Gap 15.7 (5-19); Aspartate Amino Transferase 626 U/L (0-40); Blood Urea Nitrogen 14 mg/dL (6-20); Calcium 8.8 mg/dL (8.5-10.5); Carbon Dioxide 26 mmol/L (22-29); Chloride 96 mmol/L (98-107); Creatinine Clr Calc Pharmacy 103.3198; Globulin 3.9 g/dL (1.3-4.6); Glomerular Filtration Rate 66.1 mL/min (90-130); Glucose 117 mg/dL (65-115); Lipase 8 U/L (13-60); Osmolality Calculated 280 mOsm/kg (285-295); Potassium 3.7 mmol/L (3.5-5.1); Sodium 134 mmol/L (136-145); Total Bilirubin 3.8 mg/dL (0.15-1.2); Total Protein 7.9 g/dL (6.6-8.7)
[2024-11-04 19:26] LABS: Slide Review Slide Review Perform
--- NOTE | 2024-11-04 19:29 | CTR_ITS ---
PROCEDURE INFORMATION: Exam: CT Abdomen And Pelvis With Contrast Exam date and time: 11/04/2024 7:49 PM Age: 43 years old Clinical indication: Nausea and vomiting; Abdominal pain; Epigastric pain with n/v TECHNIQUE: Imaging protocol: Computed tomography of the abdomen and pelvis with contrast. Radiation optimization: All CT scans at this facility use at least one of these dose optimization techniques: automated exposure control; mA and/or kV adjustment per patient size (includes targeted exams where dose is matched to clinical indication); or iterative reconstruction. Contrast material: OMNI 350; Contrast volume: 100 ml; Contrast route: INTRAVENOUS (IV); COMPARISON: [place] liver [id number] 02/11/2023 3:58 PM RADIATION DOSE METRICS: Total DLP (mGy-cm): 978.07 FINDINGS: Liver: Normal. No mass. Gallbladder and biliary ducts: Mild to moderate diffuse gallbladder wall thickening. No luminal distension no biliary dilation. Pancreas: Mild diffuse involutional pancreatic atrophy. Spleen: Subcentimeter hypodensity in the interpolar spleen is likely due to benign etiology. Adrenal glands: Normal. No mass. Kidneys and ureters: Normal. No hydronephrosis. Stomach and bowel: Moderate amount colonic stool. Appendix: No evidence of appendicitis. Intraperitoneal space: Unremarkable. No free air. No significant fluid collection. Vasculature: Unremarkable. No abdominal aortic aneurysm. Lymph nodes: Mildly enlarged celiac/periportal nodes up to 0.5 cm, unchanged from 02/10/2023, likely reactive. Urinary bladder: Unremarkable as visualized. Reproductive: Unremarkable as visualized. Bones/joints: Unremarkable. No acute fracture. Soft tissues: Small left inguinal fat-containing hernia without evident complications. CT/CT abdomen pelvis w con* [id number] IMPRESSION: 1. [id number] gallbladder wall thickening possibly due to cholecystitis although the gallbladder is not otherwise dilated. Other differential considerations including underlying liver disease or systemic volume overload. HIDA scan may be helpful for further evaluation if clinically warranted. 2. Otherwise no acute abnormality in the abdomen or pelvis. 3. Mild fatty involution of the pancreas without obvious inflammatory change . Other incidental findings detailed above .
[2024-11-04 19:35] LABS: Alanine Aminotransferase 746 U/L (0-41)
[2024-11-04] MEDS: iohexol 350 mg/mL 500 mL Btl (per mL) IV (19:51)
[2024-11-04 20:23] VITALS: BP 123/78; PULSE 86; RESP 16; O2SAT 98
[2024-11-04 20:32] LABS: Gamma Glutamyl Transferase 423 U/L (8-61)
--- NOTE | 2024-11-04 22:06 | PC.NURSE ---
Vape Pen Patient found out of bed with lights off in his room crouched in corner smoking his vape pen. Pt states, it's THC . pt informed that he can not have that in the ER. Pen confiscated and given to security. Pt assisted back to his bed and told that he needs to stay in it. Pt placed back on the monitor in room. Primary nurse notified. Dr Queen notified.
--- NOTE | 2024-11-04 22:06 | PC.NURSE ---
pt restless in room, fidgeting with everything. removed his IV, line was replaced. pt digging in trash and opening cabinets. instructed in need to keep him on monitors and increased fall risk. pt found to be using a THC vape in the corner by another RN, vape removed and given to security at this time.
[2024-11-04 22:10] VITALS: BP 111/68; PULSE 94; RESP 16; O2SAT 96
[2024-11-04] MEDS: piperacillin-tazobactam 3.375 GM in sodium chloride 0.9% (plus) 50 ML IV (22:46)
[2024-11-04 23:30] VITALS: BP 124/87; PULSE 115; RESP 16; TEMP 36.6; O2SAT 96
[2024-11-04 23:56] LABS: Hepatitis A Antibody IgM Non-Reactive (Nonreactive); Hepatitis B Core IgM Non-Reactive (Nonreactive); Hepatitis B Surface Antigen Non-Reactive (Nonreactive)
[2024-11-05 00:23] LABS: Hepatitis C Virus Antibody Reactive (Nonreactive)
[2024-11-08 14:59] LABS: HEP C RNA Viral Load Quant 114000 IU/mL (NOT DETECTED); HEP C RNA Viral Load Quant 5.06 Log IU/mL (NOT DETECTED)
== END 2024-11-04 23:34 | disposition short-term general hospital (02) ==
PROVIDERS: Emergency Provider Emergency Medicine
DX: K81.9 Cholecystitis, unspecified (principal); R74.01 Elevation of levels of liver transaminase levels; E86.0 Dehydration; Z72.0 Tobacco use
CPT/HCPCS: 74177; 80053; 80074; 80306; 81001; 82977; 83605; 83690; 85025; 87522; 96374; 96375; 99285; J2405; J2543; J7030

== ENCOUNTER 2025-03-06 06:49 | Outpatient (CLI) | payer BC, MEDICAID, SELFPAY ==
[2025-03-06 07:43] LABS: Hematocrit 39.3 % (37-53); Hemoglobin 13.60 g/dL (11.27-16.99); Mean Corpuscular HGB Conc 34.6 g/dL (30-55); Mean Corpuscular Hemoglobin 31.1 pg (27-33); Mean Corpuscular Volume 89.9 fl (82-101); Nucleated Red Blood Cells % 0 %; Platelet Count 323 10^3/cmm (157-399); Red Blood Count 4.37 10^6/uL (3.85-5.65); White Blood Count 6.85 10^3/uL (3.29-11.43)
[2025-03-06 08:18] LABS: Alanine Aminotransferase 41 U/L (0-41); Albumin Level 4.2 g/dL (3.5-5.2); Alkaline Phosphatase 128 U/L (40-130); Anion Gap 12.8 (5-19); Aspartate Amino Transferase 28 U/L (0-40); Blood Urea Nitrogen 17 mg/dL (6-20); Calcium 8.9 mg/dL (8.5-10.5); Carbon Dioxide 27 mmol/L (22-29); Chloride 99 mmol/L (98-107); Globulin 3.6 g/dL (1.3-4.6); Glucose 108 mg/dL (65-115); Osmolality Calculated 282 mOsm/kg (285-295); Potassium 3.8 mmol/L (3.5-5.1); Sodium 135 mmol/L (136-145); Thyroid Stimulating Hormone 2.42 uIU/mL (0.27-4.20); Total Protein 7.8 g/dL (6.6-8.7)
[2025-03-06 09:38] LABS: Free T4 Free Thyroxine 1.09 ng/dL (0.82-1.77)
== END 2025-03-06 06:50 | disposition home or self-care (01) ==
LOC: LAB 06:50
PROVIDERS: Visit Provider Nurse Practitioner
DX: B18.2 Chronic viral hepatitis C (principal); F90.9 Attention-deficit hyperactivity disorder, unspecified type; Z79.891 Long term (current) use of opiate analgesic
CPT/HCPCS: 36415; 80053; 82306; 84439; 84443; 85025; 87902